=== PATIENT | male | born 1950 | race Caucasian/White ===

== ENCOUNTER 2018-05-20 21:16 | Emergency (ER) | payer OTHER ==
--- OUTSIDE RECORDS SUMMARY | 2018-05-20 21:19 | XMS REPORT | Clinical Summary ---
:1950 Author Organization [facility] Address [address] [place] [address] Care Team Providers Name Role Phone Stevie Dewey MD Primary Care Provider Allergies Active Allergy Reactions Severity Noted Date Comments Hydralazine Other (See Comments) 05/08/2017 Severe back pain and lower extremity paralysis. Lisinopril Other (See Comments) 05/06/2017 Severe weakness/ lethargy Current Medications Prescription Sig. Disp. Refills Start Date End Date Status losartan (COZAAR) Take 25 mg by Active 25 MG tablet mouth daily. NON FORMULARY OPT 1-thyroid 5 Discontinued mg 4x daily 8 NON FORMULARY MAINTENANCE AND CUSTODIAN SUPERVISOR forte II 2x Discontinued daily 8 CYANOCOBALAMIN, Take by mouth 2 Discontinued VITAMIN B-12, (two) times a 8 (VITAMELTS ENERGY day. ORAL) metoprolol Take 25 mg by Discontinued tartrate mouth 2 (two) 8 (LOPRESSOR) 25 mg times a day. tablet aspirin 81 mg Chew 1 tablet 30 tablet 0 05/11/2017 chewable tablet (81 mg total) 7 daily for 30 days. acetaminophen-code Take 1 tablet 30 tablet 0 05/11/2017 ine (TYLENOL WITH by mouth every 7 CODEINE #3) 300-30 4 (four) hours mg per tablet as needed for moderate pain for up to 10 days. docusate sodium Take 1 capsule 20 capsule 0 05/11/2017 (COLACE) 100 MG (100 mg total) 7 capsule by mouth 2 (two) times a day for 10 days. For use while on pain medication. IBUPROFEN (ADVIL Take by mouth. Discontinued ORAL) 8 cefadroxil Take 1 capsule 14 capsule 0 12/21/2017 (DURICEF) 500 MG (500 mg total) 8 capsule by mouth 2 (two) times a day for 7 days. acetaminophen-code Take 1 tablet 20 tablet 0 12/21/2017 ine (TYLENOL WITH by mouth every 8 CODEINE #3) 300-30 6 (six) hours mg per tablet as needed for moderate pain for up to 7 days. bacitracin 500 Apply topically 14 g 0 12/21/2017 unit/gram ointment 2 (two) times a 8 day for 3 days. 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 Encounters Date Type Specialty Care Team Description 12/21/2017 Hospital Encounter Plastic Surgery Aditya Cabrera MD 12/21/2017 Procedure Pass Plastic Surgery 12/21/2017 Surgery Plastic Surgery Aditya Cabrera FLAP REVISION OF MD Kaci right EAR 12/06/2017 Pre-Admit Testing Pre-Admission Aditya Cabrera Preop testing Appointment Testing MD Kaci (Primary Dx) 12/06/2017 Anesthesia Event Plastic Surgery Thea Corley, MACK 05/24/2017 Lab Lab Anand Alvarez Basal cell MD Tim carcinoma, ear, right (Primary Dx) 05/23/2017 Lab Lab Anand Alvarez MD after 05/19/2017 Family History Medical History Relation Name Comments Cancer Brother lung,kidney,brain Cancer Sister Relation Name Status Comments Brother (Age 50) Sister (Age 50) Social History Tobacco Use Types Packs/Day Years Used Date Current Every Day Smoker Cigarettes 1.5 40 Smokeless Tobacco: Never Used Alcohol Use Drinks/Week oz/Week Comments No Sex Assigned at Date Recorded Not on file Last Filed Vital Signs Vital Sign Reading Time Taken Blood Pressure 115/57 12/21/2017 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 Pulse 71 12/21/2017 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 Temperature 36.7 C (98 F) 12/21/2017 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 Respiratory Rate 17 12/21/2017 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 Oxygen Saturation 98% 12/21/2017 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 Inhaled Oxygen Concentration - - Weight 75.6 kg (166 lb 11.2 oz) 12/06/2017 11:40 AM UTILITY WORKER DRIVER Height 177.8 cm (5' 10") 12/21/2017 7:14 AM UTILITY WORKER DRIVER Body Mass Index 23.92 12/06/2017 11:40 AM UTILITY WORKER DRIVER Plan of Treatment Health Maintenance Due Date Last Done Comments COLON CANCER SCREENING 02/14/2002 SHINGRIX VACCINE (#1) 02/14/2002 ZOSTER VACCINE 2012 PNEUMOCOCCAL POLYSACCHARIDE VACCINE AGE 65 AND OVER 02/14/2017 PNEUMOCOCCAL-13 02/14/2017 INFLUENZA VACCINE 06/07/2018 Implants Implanted Type Area Folder Tier Device Expiration Model / Identifier Date Serial / Lot Algrft Crtlge Costal >6cm In - [id number] - [id number] Human Right: [employer]OSOURCE 04/15/2021 [id number] / Implanted: Qty: 1 on 05/05/2017 by Anand Alvarez MD Tissue Ear [id number] / Implants [id number] Drain Wound Hbls Round Radopaq Trocar Kaitlin White 0.18in 15fr - [id number] Surgical N/A: 2229 / Implanted: 05/05/2017 (Quantity not on file) Implants; N/A / Expanders; Extenders; Surgical Wires Otr Owner Operator Micrvasclr [place] 3mm Anastomosis - [id number] Surgical N/A: SYNOVIS [id number] / Implanted: Qty: 1 on 05/05/2017 by Anand Alvarez MD Implants; N/A SURGICAL / Expanders; INNOVATIONS Extenders; Surgical Wires Drain Wound Hbls Round Radopaq Trocar Kaitlin White 0.18in 15fr - [id number] Surgical N/A: 2229 / Implanted: 05/05/2017 (Quantity not on file) Implants; N/A / Expanders; Extenders; Surgical Wires Procedures Procedure Name Priority Date/Time Associated Diagnosis Comments OK AN ELECTIVE Routine 12/21/2017 9:22 AM ENDOTRACHEAL AIRWAY UTILITY WORKER DRIVER Procedure Note - Dian Irvin MD - 12/21/2017 9:22 AM UTILITY WORKER DRIVER Airway Date/Time: 12/21/2017 8:24 AM Performed by: DIAN IRVIN Authorized by: DIAN IRVIN Location: OR Urgency: Elective Difficult Airway: No Anesthesiologist: DIAN IRVIN Performed by: anesthesiologist Preoxygenated with 100% O2: Yes C-spine Precautions Maintained Throughout: Yes Mask Ventilation: Easy mask Final Airway Type: Endotracheal airway Final Endotracheal Airway: ETT Cuffed: Yes Technique Used: Direct laryngoscopy Insertion Site: Oral Blade Type: Bethea Laryngoscope Blade/Videolaryngoscope Blade Size: 2 ETT Size (mm): 8.0 Cuff at minimum occlusion pressure: Yes Measured from: Lips ETT to Lips (cm): 24 Placement Verified by: CO2 detection, direct visualization and equal breath sounds Laryngoscopic view: Grade I - full view of glottis Rapid Sequence Induction (RSI): No Modified RSI: No Number of Attempts at Approach: 1 CLOSURE, WOUND, USING ROTATION 12/21/2017 8:00 AM UTILITY WORKER DRIVER Acquired anomaly of ear FLAP Special Needs REQ 1130 START ECG PRE/POST OP Routine 12/06/2017 12:11 PM Preop testing Results for this UTILITY WORKER DRIVER procedure are in the results section. ESTIMATED GFR Routine 12/06/2017 11:59 AM Results for this UTILITY WORKER DRIVER procedure are in the results section. BASIC METABOLIC PANEL Routine 12/06/2017 11:59 AM Preop testing Results for this UTILITY WORKER DRIVER procedure are in the results section. CBC HEMOGRAM Routine 12/06/2017 11:59 AM Preop testing Results for this UTILITY WORKER DRIVER procedure are in the results section. SURGICAL PATHOLOGY Routine 05/23/2017 9:55 AM Results for this REQUEST CDT procedure are in the results section. after 05/19/2017 Results ECG Pre/Post Op (12/06/2017 12:11 PM) Ventricular rate 53 [facility] Atrial rate 53 [facility] OK interval 150 [facility] QRSD interval 82 [facility] QT interval 410 [facility] QTC interval 384 [facility] P axis 1 48 [facility] QRS axis 1 35 [facility] T wave axis 44 [facility] EKG impression Sinus bradycardia-Otherwise normal ECG-In [facility] automated comparison with ECG of 08-APR-2017 10:40,-No significant change was found- Performing Organization Address City/State/Zipcode Phone Number [facility] [address] [place] [address] Estimated GFR (12/06/2017 11:59 AM) GFR Non Af Amer >90 mL/min/1.73 m2 [facility] PATHOLOGY AND GENOMIC MEDICINE GFR Af Amer >90 mL/min/1.73 m2 [facility] OF Comment: PATHOLOGY AND GENOMIC Chronic kidney disease: <60 mL/min/1.73m2 MEDICINE Kidney failure: <15 mL/min/1.73m2 The estimated GFR is calculated from the IDMS-traceable Modification of Diet in Renal Disease Equation. The accuracy of the calculation is poor when the creatinine is normal. Calculated values >90 mL/min/1.73m2 are not reported. This equation has not been validated in children (<18 years), women, the elderly (>70 years), or ethnic groups other than Caucasians and Americans. Specimen Plasma specimen Performing Organization Address City/State/Zipcode Phone Number [facility] OF PATHOLOGY AND [address] [place] [phone] [employer] CBC hemogram (12/06/2017 11:59 AM) WBC 8.45 4.50 - 11.00 k/uL [facility]OLOGY [facility]IC MEDIC[facility] RBC 5.39 4.40 - 6.00 m/uL [facility] HGB 16.3 14.0 - 18.0 g/dL [facility]IC[facility] HCT 50.7 41.0 - 51.0 % [facility]IC[facility] MCV 94.1 82.0 - 100.0 fL [facility]IC[facility] MCH 30.2 27.0 - 34.0 pg [facility]IC[facility] MCHC 32.1 31.0 - 37.0 g/dL [facility] GENOMIC [facility]ICINE RDW - SD 49.1 37.0 - 55.0 fL [facility]OLOG[facility] GENOMIC MEDICINE MPV 9.9 8.8 - 13.2 fL [facility]IC[facility] Platelet count 193 150 - 400 k/uL [facility]IC[facility] Nucleated RBC 0.00 /100 WBC [facility]OLOG[facility]OMIC [facility]IC[facility] Specimen Blood Performing Organization Address City/State/Zipcode Phone Number [facility] OF PATHOLOGY AND [address] [place] [address] [employer] Basic metabolic panel (12/06/2017 11:59 AM) Sodium 144 135 - 148 mEq/L [facility]IC[facility] Potassium 4.0 3.5 - 5.0 mEq/L [facility]IC[facility] Chloride 103 98 - 112 mEq/L [facility]OLOG[facility]IC MEDIC[facility] CO2 28 24 - 31 mEq/L [facility]ICINE Anion gap 13 7 - 15 mEq/L [facility] OF PATHOLOGY Comment: AND GENOMIC MEDICINE Starting from February , anion gap calculation no longer incorporates potassium. Please note the change. BUN 13 8 - 23 mg/dL [facility] PATHOLOGY [facility]OMIC MEDICINE Creatinine 0.8 0.7 - 1.2 mg/dL [facility] PATHOLOG[facility]IC MEDICINE Glucose 141 (H) 65 - 99 mg/dL [facility] PATHOLOGY AND GENOMIC MEDICINE Calcium 9.4 8.8 - 10.2 mg/dL [facility] OF PATHOLOGY AND GENOMIC MEDICINE Specimen Plasma specimen Performing Organization Address City[facility]State[facility] Phone Number [facility] OF PATHOLOGY AND [address] [place] [address] GENOMIC MEDICINE Surgical pathology request (05/23/2017 9:55 AM) [facility] PATHOLOGY AND GENOMIC MEDICINE Surgical pathology report See link below for PDF [facility] Lab Report PATHOLOGY AND GENOMIC MEDICINE Performing Organization Address City/[facility] Phone Number [facility] OF PATHOLOGY AND [address] [place] [address] GENOMIC MEDICINE after 05/19/2017 Insurance Payer Benefit Plan / Group Subscriber ID Type Phone Address MEDICARE MEDICARE PART A AND B xxxxxxxxxx Medicare [place], [place] COMMERCIAL MISC MISC COMMERCIAL xxxxxxxxxx Commercial [phone] [place], [place] [phone]
[2018-05-20] MEDS ORDERED: TETRACAINE HCL 0.5% 2ML OPTH ONE (22:29)
--- NOTE | 2018-05-20 22:48 | ER ---
Nurse's Notes [facility] Name: Dick Branch Age: 68 yrs Sex: Male : 1950 Arrival Date: 05/20/2018 Time: 21:18 Bed 16 Private MD: Stevie Dewey Diagnosis: Foreign body in cornea, left eye;Foreign body in cornea, right eye Presentation: 05/20 21:32 Presenting complaint: Patient states: He was underneath a JEEP and some trash fell down aj1 and now he feels like he has something in both eyes, but the left eye is burning more. Redness noted to left sclera. Transition of care: patient was not received from another setting of care. Onset of symptoms was May 20, 2018. Onset of symptoms was May 20, 2018 at 17:30. Risk Assessment: Do you want to hurt yourself or someone else? Patient reports no desire to harm self or others. Initial Sepsis Screen: Does the patient meet any 2 criteria? No. Patient's initial sepsis screen is negative. Does the patient have a suspected source of infection? No. Patient's initial sepsis screen is negative. Care prior to arrival: None. 21:32 Method Of Arrival: Ambulatory [facility] 21:32 Acuity: MILLIE 4 aj1 Triage Assessment: 21:36 General: Appears in no apparent distress. comfortable, Behavior is calm, cooperative, aj1 appropriate for age. Pain: Complains of pain in right eye and left eye Pain currently is 5 out of 10 on a pain scale. Quality of pain is described as irritating. EENT: Sclera/Cornea are reddened in outer aspect of conjuctiva of left eye and inner aspect of conjunctiva of left eye. Neuro: Level of Consciousness is awake, alert, obeys commands, Speech is normal. Cardiovascular: Patient's skin is warm and dry. Respiratory: Airway is patent Respiratory effort is even, unlabored, Respiratory pattern is regular, symmetrical. Historical: - Allergies: 21:36 No Known Allergies; aj1 - Home Meds: 21:36 losartan 25 mg oral tab 2 tabs once daily [Active]; Prilosec 20 mg Oral cpDR 1 cap once aj1 daily [Active]; - PMHx: 21:36 Hypertension; GERD; aj1 - PSHx: 21:36 ear surgery for basal cell carcinoma; aj1 - Immunization history:: Flu vaccine is not up to date. - Social history:: Smoking status: Patient uses tobacco products, smokes 1.5 packs per day. - Ebola Screening: : Patient denies travel to an Ebola-affected area in the 21 days before illness onset. - Family history:: not pertinent. - Hospitalizations: : No recent hospitalization is reported. Screenin:19 Abuse screen: Denies threats or abuse. Denies injuries from another. Nutritional bp screening: No deficits noted. Tuberculosis screening: No symptoms or risk factors identified. Fall Risk None identified. Assessment: 22:18 Reassessment: SEE TRIAGE NOTE. VISION GROSSLY INTACT, NO EXUDATE NOTED. bp 23:16 Reassessment: PT D/C HOME, DX WITH CORNEAL ABRASION. bp Vital Signs: 21:36 BP 136 / 77; Pulse 65; Resp 18; Temp 97.3; Pulse Ox 97% on R/A; Weight 75.3 kg (R); aj1 Height 5 ft. 10 in. (177.80 cm) (R); 23:15 BP 141 / 79; Pulse 71; Resp 16; Pulse Ox 98% ; bp 21:36 Body Mass Index 23.82 (75.30 kg, 177.80 cm) aj1 ED Course: 21:18 Patient arrived in ED. es 21:21 Stevie Dewey MD is Private Physician. es 21:34 Triage completed. aj1 21:36 Arm band placed on Patient placed in waiting room, Patient notified of wait time. aj1 22:17 Eduardo Farah, MICHELLE is Primary Nurse. bp 22:19 Patient has correct armband on for positive identification. Bed in low position. Call bp light in reach. Side rails up X2. Adult w/ patient. 22:21 Jose Paredes MD is Attending Physician. rn 22:46 Caleb [place] MD is Referral Physician. rn 23:17 No provider procedures requiring assistance completed. Patient did not have IV access bp during this emergency room visit. Administered Medications: No medications were administered Outcome: 22:47 Discharge ordered by MD. rn 23:17 Discharged to home ambulatory, with family. bp 23:17 Condition: stable 23:17 Discharge instructions given to patient, Instructed on discharge instructions, follow up and referral plans. medication usage, Demonstrated understanding of instructions, follow-up care, medications, Prescriptions given X 1. 23:18 Patient left the ED. bp Signatures: Yulia Romero RN RN aj1 Isabella Salazar Roman, MD MD rn Eduardo Farah RN RN bp
--- NOTE | 2018-05-20 22:48 | EDPHYS ---
Physician Documentation [facility] Name: Dick Branch Age: 68 yrs Sex: Male : 1950 Arrival Date: 05/20/2018 Time: 21:18 Bed 16 Private MD: Stevie Dewey ED Physician Jose Paredes HPI: 05/20 22:42 This 68 yrs old Male presents to ER via Ambulatory with complaints of Eye rn Problem. 22:42 The patient is experiencing foreign body sensation. Onset: The symptoms/episode rn began/occurred just prior to arrival. Aggravated by blinking. Patient does not utilize any form of vision correction. Severity of symptoms: At their worst the symptoms were moderate in the emergency department the symptoms are unchanged. The patient has not experienced similar symptoms in the past. 22:43 Working underneath vehicle, feels like got some dust in eye. Both eyes, right > left.. rn Historical: - Allergies: 21:36 No Known Allergies; aj1 - Home Meds: 21:36 losartan 25 mg oral tab 2 tabs once daily [Active]; Prilosec 20 mg Oral cpDR 1 cap once aj1 daily [Active]; - PMHx: 21:36 Hypertension; GERD; aj1 - PSHx: 21:36 ear surgery for basal cell carcinoma; aj1 - Immunization history:: Flu vaccine is not up to date. - Social history:: Smoking status: Patient uses tobacco products, smokes 1.5 packs per day. - Ebola Screening: : Patient denies travel to an Ebola-affected area in the 21 days before illness onset. - Family history:: not pertinent. - Hospitalizations: : No recent hospitalization is reported. ROS: 22:43 Constitutional: Negative for fever, chills, and weight loss, Eyes: + foreign body rn sensation bilateral eyes. Exam: 22:43 Visual Acuity: I have reviewed the nursing documentation. Visual acuity is within rn normal limits. 22:43 Constitutional: This is a well developed, well nourished patient who is awake, alert, and in no acute distress. Head/Face: Normocephalic, atraumatic. Eyes: Right eye with evidence of previous cataract surgery, pupils reactive, left cornea with black foreign body, + abrasion/ulceration underneath after removal, right eye with foreign body identified at superior margin, removed easily with soft tipped currette after tetracaine. Vital Signs: 21:36 BP 136 / 77; Pulse 65; Resp 18; Temp 97.3; Pulse Ox 97% on R/A; Weight 75.3 kg (R); aj1 Height 5 ft. 10 in. (177.80 cm) (R); 23:15 BP 141 / 79; Pulse 71; Resp 16; Pulse Ox 98% ; bp 21:36 Body Mass Index 23.82 (75.30 kg, 177.80 cm) aj1 Procedures: 22:43 Foreign Body Removal: dust, from the right left eye, conjunctiva by using a rn cotton-tipped swab, The patient tolerated the removal well, Used tetracaine and then irrigated with multiple syringes.. MDM: 22:21 Patient medically screened. rn 22:43 Differential diagnosis: Corneal abrasion of Corneal ulcer of Foreign body in. Data rn reviewed: vital signs, nurses notes, and as a result, I will discharge patient. Counseling: I had a detailed discussion with the patient and/or guardian regarding: the historical points, exam findings, and any diagnostic results supporting the discharge/admit diagnosis, the need for outpatient follow up, to return to the emergency department if symptoms worsen or persist or if there are any questions or concerns that arise at home. Response to treatment: the patient's symptoms have markedly improved after treatment, and as a result, I will discharge patient. Special discussion: I discussed with the patient/guardian in detail that at this point there is no indication for admission to the hospital. It is understood, however, that if the symptoms persist or worsen the patient needs to return immediately for re-evaluation. Based on the history and exam findings, there is no indication for further emergent testing or inpatient evaluation. I discussed with the patient/guardian the need to see the opthamologist for further evaluation of the symptoms. Administered Medications: No medications were administered Disposition: 05/20/18 22:47 Discharged to Home. Impression: Foreign body in cornea, left eye, Foreign body in cornea, right eye. - Condition is Stable. - Discharge Instructions: Corneal Abrasion, Eye Foreign Body. - Prescriptions for Vigamox 0.5 % Ophthalmic Drops - instill 1 drop by OPHTHALMIC route every 8 hours for 7 days; 5 milliliter. - Medication Reconciliation Form, Thank You Letter, Antibiotic Education, Prescription Opioid Use form. - Follow up: Caleb [place] MD; When: 2 - 3 days; Reason: Recheck today's complaints, Re-evaluation by your physician. - Problem is new. - Symptoms have improved. Signatures: Yulia Romero, RN RN aj1 Jose Paredes MD MD rn Peltier, Brian, RN RN bp Corrections: (The following items were deleted from the chart) 22:45 22:43 Foreign Body Removal: dust, from the right left eye, conjunctiva rn rn 23:18 22:47 05/20/2018 22:47 Discharged to Home. Impression: Foreign body in cornea, left bp eye; Foreign body in cornea, right eye. Condition is Stable. Forms are Medication Reconciliation Form, Thank You Letter, Antibiotic Education, Prescription Opioid Use. Follow up: Caleb [place]; When: 2 - 3 days; Reason: Recheck today's complaints, Re-evaluation by your physician. Problem is new. Symptoms have improved. rn
== END 2018-05-20 23:18 | disposition home or self-care (01) ==
LOC: ER 21:16
PROC: 08C9XZZ Extirpation of Matter from Left Cornea, External Approach (ICD-10-PCS; principal; 2018-05-20)
PROC: 08C8XZZ Extirpation of Matter from Right Cornea, External Approach (ICD-10-PCS; 2018-05-20)
DX: T15.02XA Foreign body in cornea, left eye, initial encounter (principal); T15.01XA Foreign body in cornea, right eye, initial encounter; Y93.89 Activity, other specified; Y92.9 Unspecified place or not applicable
CPT/HCPCS: 99282

== ENCOUNTER 2019-12-26 17:49 | Emergency (ER) | payer OTHER ==
--- OUTSIDE RECORDS SUMMARY | 2019-12-26 17:55 | XMS REPORT ---
:1950 [facility] Address [address] [place] [address] Dr. Ambrosio [address] [place] [id number] Care Team Providers Name Role Phone Unavailable Unavailable Unavailable Problems This patient has no known problems. Allergies, Adverse Reactions, Alerts This patient has no known allergies or adverse reactions. Medications This patient has no known medications.
[2019-12-26] MEDS ORDERED: NA CHLORIDE 0.9% 1,000 ML ONE (19:12)
[2019-12-26] MEDS ORDERED: NA CHLORIDE 0.9% 500 ML ONE (19:12)
[2019-12-26] MEDS ORDERED: OCTREOTIDE ACETATE 100 MCG/ML ONE ×2 (19:13)
[2019-12-26 19:42] LABS: Absolute Lymphocytes (CBC) 2.6 K/uL (0.7-4.9); Basophils % 0.9 % (0-1.3); Hematocrit 45.6 % (39.6-49.0); Lymphocytes % 33.1 % (15.3-44.8); MPV 7.7 fL (7.6-11.3); RBC Red Blood Cell Count 5.01 M/uL (4.33-5.43)
[2019-12-26 19:45] LABS: Protime INR 1.02
[2019-12-26 19:58] LABS: ALT/SGPT 77 U/L (12-78); AST/SGOT 51 U/L (15-37); Albumin 3.2 g/dL (3.4-5.0); Alkaline Phosphatase 221 U/L (45-117); BUN Blood Urea Nitrogen 14 mg/dL (7-18); Bicarbonate 29 mmol/L (21-32); Bilirubin Direct 0.1 mg/dL (0-0.2); Bilirubin Total 0.4 mg/dL (0.2-1.0); Glucose Level 97 mg/dL (74-106); Lipase 299 U/L (73-393); Potassium 3.9 mmol/L (3.5-5.1); Protein, Total 7.1 g/dL (6.4-8.2); Sodium Level 143 mmol/L (136-145)
--- NOTE | 2019-12-26 20:50 | EDPHYS ---
Physician Documentation [facility] Name: Dick Branch Age: 69 yrs Sex: Male : 1950 Arrival Date: 12/26/2019 Time: 17:52 Bed 6 Private MD: ED Physician Joes Paredes HPI: 12/26 18:35 This 69 yrs old Male presents to ER via Unassigned with complaints of Rectal snw Bleeding. 18:35 The patient presents to the emergency department with bleeding from the rectum/anus, snw that is moderate. Onset: The symptoms/episode began/occurred gradually, and became worse today, and became persistent. Context: the patient s/p multiple variceal banding. Associate signs and symptoms: Pertinent positives: rectal bleeding. The patient has experienced similar episodes in the past. Dr. Kan. - Immunization history:: Adult Immunizations unknown. - Coronavirus screen:: The patient has NOT traveled to [place] in the past 14 days. - Social history:: Smoking status: unknown. - Ebola Screening: : No symptoms or risks identified at this time. ROS: 18:28 Constitutional: Negative for fever, chills, and weight loss, Eyes: Negative for injury, snw pain, redness, and discharge, ENT: Negative for injury, pain, and discharge, Neck: Negative for injury, pain, and swelling, Cardiovascular: Negative for chest pain, palpitations, and edema, Respiratory: Negative for shortness of breath, cough, wheezing, and pleuritic chest pain, Back: Negative for injury and pain, : Negative for injury, bleeding, discharge, and swelling, MS/Extremity: Negative for injury and deformity, Skin: Negative for injury, rash, and discoloration, Neuro: Negative for headache, weakness, numbness, tingling, and seizure, Psych: Negative for depression, anxiety, suicide ideation, homicidal ideation, and hallucinations. 18:28 Abdomen/GI: Positive for abdominal pain, abdominal cramps, rectal bleeding. Exam: 18:26 Constitutional: This is a well developed, well nourished patient who is awake, alert, snw and in no acute distress. + tobacco Head/Face: Normocephalic, atraumatic. Eyes: Pupils equal round and reactive to light, extra-ocular motions intact. Lids and lashes normal. Conjunctiva and sclera are non-icteric and not injected. Cornea within normal limits. Periorbital areas with no swelling, redness, or edema. ENT: Nares patent. No nasal discharge, no septal abnormalities noted. Tympanic membranes are normal and external auditory canals are clear. Oropharynx with no redness, swelling, or masses, exudates, or evidence of obstruction, uvula midline. Mucous membranes moist. Top teeth all decayed Neck: Trachea midline, no thyromegaly or masses palpated, and no cervical lymphadenopathy. Supple, full range of motion without nuchal rigidity, or vertebral point tenderness. No Meningismus. Chest/axilla: Normal chest wall appearance and motion. Nontender with no deformity. No lesions are appreciated. Cardiovascular: Regular rate and rhythm with a normal S1 and S2. No gallops, murmurs, or rubs. Normal PMI, no JVD. No pulse deficits. Respiratory: Lungs have equal breath sounds bilaterally, clear to auscultation and percussion. No rales, rhonchi or wheezes noted. No increased work of breathing, no retractions or nasal flaring. Back: No spinal tenderness. No costovertebral tenderness. Full range of motion. Skin: Warm, dry with normal turgor. Normal color with no rashes, no lesions, and no evidence of cellulitis. MS/ Extremity: Pulses equal, no cyanosis. Neurovascular intact. Full, normal range of motion. Neuro: Awake and alert, GCS 15, oriented to person, place, time, and situation. Cranial nerves II-XII grossly intact. Motor strength 5/5 in all extremities. Sensory grossly intact. Cerebellar exam normal. Normal gait. Psych: Awake, alert, with orientation to person, place and time. Behavior, mood, and affect are within normal limits. 18:26 Abdomen/GI: Inspection: abdomen appears normal, Bowel sounds: normal, Palpation: mild abdominal tenderness, in the umbilical area, to lower abdomen, Rectal exam: Prostate: normal, rectal tone normal, Stool: guaiac positive, the exam is chaperoned by the nurse. Vital Signs: 18:37 BP 164 / 66; Pulse 54; Resp 16; Temp 97.9; Pulse Ox 100% on R/A; iw 19:44 BP 153 / 66; Pulse 47; Resp 18; Pulse Ox 97% on R/A; Pain 0/10; aa1 20:32 BP 133 / 55 Supine; Pulse 50; Resp 18; Pulse Ox 98% ; ea 20:33 BP 134 / 58 Sitting; Pulse 50; Resp 18; Pulse Ox 98% ; ea 20:35 BP 120 / 60 Standing; Pulse 52; ea 21:26 BP 140 / 61; Pulse 55; Resp 18; Temp 98.1; Pulse Ox 97% on R/A; Pain 0/10; aa1 MDM: 18:36 Patient medically screened. snw 20:29 Data reviewed: vital signs, nurses notes. Data interpreted: Pulse oximetry: on room air snw is 97 %. Interpretation: normal. Counseling: I had a detailed discussion with the patient and/or guardian regarding: the historical points, exam findings, and any diagnostic results supporting the discharge/admit diagnosis, the presence of at least one elevated blood pressure reading (>120/80) during this emergency department visit, lab results, the need for outpatient follow up. Response to treatment: the patient's symptoms have mildly improved after treatment. Physician consultation: Odin Gu MD regarding consult, patient's condition, f/u outpatient with Dr. Ramos. 12/26 18:29 Order name: Basic Metabolic Panel; Complete Time: 20:04 snw 12/26 18:29 Order name: CBC with Diff; Complete Time: 20:04 snw 12/26 18:29 Order name: Creatinine for Radiology; Complete Time: 19:58 snw 12/26 18:29 Order name: Hepatic Function; Complete Time: 20:04 snw 12/26 18:29 Order name: Lipase; Complete Time: 20:04 snw 12/26 18:29 Order name: TS; Complete Time: 20:35 snw 12/26 18:29 Order name: IV Saline Lock; Complete Time: 19:27 snw 12/26 18:29 Order name: Labs collected and sent; Complete Time: 19:27 snw 12/26 18:35 Order name: PT-INR; Complete Time: 19:58 snw 12/26 18:35 Order name: Ptt, Activated; Complete Time: 19:58 snw 12/26 20:24 Order name: Orthostatics; Complete Time: 20:38 snw Administered Medications: 18:48 CANCELLED (pt states he has reaction to this med): ProTONIX 40 mg IVP once snw 19:26 Drug: NS 0.9% 1000 ml Route: IV; Rate: 75 ml/hr; Site: right antecubital; aa1 21:25 Follow up: IV Status: Completed infusion; IV Intake: 150ml aa1 19:26 Drug: Octreotide Infusion (50 mcg/hr) - (Octreotide 500 mcg, NS 0.9% 500 ml) Route: IV; aa1 Rate: 50 ml/hr; Site: right antecubital; 21:25 Follow up: IV Status: Completed infusion; IV Intake: 100ml aa1 Disposition: 12/26/19 20:49 Discharged to Home. Impression: Rectal bleeding post esophageal varices band placement. - Condition is Stable. - Discharge Instructions: Gastrointestinal Bleeding, Nonalcoholic Fatty Liver Disease Diet. - Medication Reconciliation Form, Thank You Letter, Antibiotic Education, Prescription Opioid Use form. - Follow up: Private Physician; When: 2 - 3 days; Reason: Recheck today's complaints, Continuance of care, Re-evaluation by your physician. Follow up: Emergency Department; When: As needed; Reason: Worsening of condition. Addendum: 12/29/2019 07:14 Co-signature as Attending Physician, Jose Paredes MD. r n Signatures: Dispatcher [employer] EDMS Tori Dc RN RN aa1 Divine Pollard, CANDY FORMING MACHINE OPERATOR-C CANDY FORMING MACHINE OPERATOR-Csnw Jose Paredes MD MD rn Antunez, Elena, RN RN ea Corrections: (The following items were deleted from the chart) 12/26 18:48 18:40 ProTONIX 40 mg IVP once ordered. snw snw 18:49 18:26 Constitutional: This is a well developed, well nourished patient who is awake, snw alert, and in no acute distress. Head/Face: Normocephalic, atraumatic. Eyes: Pupils equal round and reactive to light, extra-ocular motions intact. Lids and lashes normal. Conjunctiva and sclera are non-icteric and not injected. Cornea within normal limits. Periorbital areas with no swelling, redness, or edema. ENT: Nares patent. No nasal discharge, no septal abnormalities noted. Tympanic membranes are normal and external auditory canals are clear. Oropharynx with no redness, swelling, or masses, exudates, or evidence of obstruction, uvula midline. Mucous membranes moist. Neck: Trachea midline, no thyromegaly or masses palpated, and no cervical lymphadenopathy. Supple, full range of motion without nuchal rigidity, or vertebral point tenderness. No Meningismus. Chest/axilla: Normal chest wall appearance and motion. Nontender with no deformity. No lesions are appreciated. Cardiovascular: Regular rate and rhythm with a normal S1 and S2. No gallops, murmurs, or rubs. Normal PMI, no JVD. No pulse deficits. Respiratory: Lungs have equal breath sounds bilaterally, clear to auscultation and percussion. No rales, rhonchi or wheezes noted. No increased work of breathing, no retractions or nasal flaring. Back: No spinal tenderness. No costovertebral tenderness. Full range of motion. Skin: Warm, dry with normal turgor. Normal color with no rashes, no lesions, and no evidence of cellulitis. MS/ Extremity: Pulses equal, no cyanosis. Neurovascular intact. Full, normal range of motion. Neuro: Awake and alert, GCS 15, oriented to person, place, time, and situation. Cranial nerves II-XII grossly intact. Motor strength 5/5 in all extremities. Sensory grossly intact. Cerebellar exam normal. Normal gait. Psych: Awake, alert, with orientation to person, place and time. Behavior, mood, and affect are within normal limits. snw 18:49 18:26 Abdomen/GI: Inspection: abdomen appears normal, Bowel sounds: normal, Palpation: snw mild abdominal tenderness, in the umbilical area, Rectal exam: Prostate: normal, rectal tone normal, Stool: guaiac positive, the exam is chaperoned by the nurse, snw 21:27 20:49 12/26/2019 20:49 Discharged to Home. Impression: Rectal bleeding post esophageal aa1 varices band placement. Condition is Stable. Forms are Medication Reconciliation Form, Thank You Letter, Antibiotic Education, Prescription Opioid Use. Follow up: Private Physician; When: 2 - 3 days; Reason: Recheck today's complaints, Continuance of care, Re-evaluation by your physician. Follow up: Emergency Department; When: As needed; Reason: Worsening of condition. snw
--- NOTE | 2019-12-26 20:50 | ER ---
Nurse's Notes [facility] [place] Name: Dick Branch Age: 69 yrs Sex: Male : 1950 Arrival Date: 12/26/2019 Time: 17:52 Bed 6 Private MD: Diagnosis: Rectal bleeding post esophageal varices band placement Presentation: 12/26 18:35 Presenting complaint: Patient states: hx of cirrhosis, esophageal banding on Dec 17, iw 2019. pt has had blood in stool since Tuesday, 4 BM with bright red blood today. 18:35 Method Of Arrival: Wheelchair iw 18:38 Transition of care: patient was not received from another setting of care. Onset of iw symptoms was December 23, 2019. Risk Assessment: Do you want to hurt yourself or someone else? Patient reports no desire to harm self or others. Initial Sepsis Screen: Does the patient meet any 2 criteria? No. Patient's initial sepsis screen is negative. Does the patient have a suspected source of infection? No. Patient's initial sepsis screen is negative. Care prior to arrival: None. 18:38 Acuity: MILLIE 3 iw - Immunization history:: Adult Immunizations unknown. - Coronavirus screen:: The patient has NOT traveled to [place] in the past 14 days. - Social history:: Smoking status: unknown. - Ebola Screening: : No symptoms or risks identified at this time. Screenin:53 Abuse screen: Denies threats or abuse. Nutritional screening: No deficits noted. ea Tuberculosis screening: No symptoms or risk factors identified. Fall Risk IV access (20 points). Assessment: 20:13 General: Appears in no apparent distress. Behavior is calm, cooperative, appropriate ea for age. Pain: Denies pain. Neuro: Level of Consciousness is awake, alert, obeys commands, Oriented to person, place, time, situation. Cardiovascular: Patient's skin is warm and dry. Respiratory: Airway is patent Respiratory effort is even, unlabored, Respiratory pattern is regular, symmetrical. GI: Reports rectal bleeding. 21:26 Reassessment: Patient appears in no apparent distress at this time. Patient is alert, aa1 oriented x 3, equal unlabored respirations, skin warm/dry/pink. Discussed d/c \T\ f/u instructions with pt \T\ spouse; denies questions or concerns at this time. Ambulatory to lobby with steady gait. Patient states feeling better. Vital Signs: 18:37 BP 164 / 66; Pulse 54; Resp 16; Temp 97.9; Pulse Ox 100% on R/A; iw 19:44 BP 153 / 66; Pulse 47; Resp 18; Pulse Ox 97% on R/A; Pain 0/10; aa1 20:32 BP 133 / 55 Supine; Pulse 50; Resp 18; Pulse Ox 98% ; ea 20:33 BP 134 / 58 Sitting; Pulse 50; Resp 18; Pulse Ox 98% ; ea 20:35 BP 120 / 60 Standing; Pulse 52; ea 21:26 BP 140 / 61; Pulse 55; Resp 18; Temp 98.1; Pulse Ox 97% on R/A; Pain 0/10; aa1 ED Course: 17:52 Patient arrived in ED. mr 18:26 Divine [facility] F[facility]-C [facility] snw 18:26 Jose Paredes MD is Attending Physician. snw 18:40 Triage completed. iw 19:11 Inserted saline lock: 18 gauge in right antecubital area, using aseptic technique. cm6 20:04 Arm band placed on right wrist. Patient placed in an exam room, on a stretcher, on ea pulse oximetry. 20:10 Angelica Mary, RN is Primary Nurse. ea 20:14 Patient has correct armband on for positive identification. Placed in gown. Bed in low ea position. 21:26 No provider procedures requiring assistance completed. IV discontinued, intact, aa1 bleeding controlled, No redness/swelling at site. Pressure dressing applied. Administered Medications: 18:48 CANCELLED (pt states he has reaction to this med): ProTONIX 40 mg IVP once snw 19:26 Drug: NS 0.9% 1000 ml Route: IV; Rate: 75 ml/hr; Site: right antecubital; aa1 21:25 Follow up: IV Status: Completed infusion; IV Intake: 150ml aa1 19:26 Drug: Octreotide Infusion (50 mcg/hr) - (Octreotide 500 mcg, NS 0.9% 500 ml) Route: IV; aa1 Rate: 50 ml/hr; Site: right antecubital; 21:25 Follow up: IV Status: Completed infusion; IV Intake: 100ml aa1 Intake: 21:25 IV: 100ml; Total: 100ml. aa1 21:25 IV: 150ml; Total: 250ml. aa1 Outcome: 20:49 Discharge ordered by . snave 21: Discharged to home ambulatory, with significant other. aa1 21: Condition: good 21:26 Discharge instructions given to patient, significant other, Instructed on discharge instructions, follow up and referral plans. Demonstrated understanding of instructions, follow-up care. 21:27 Patient left the ED. aa1 Signatures: Tori Dc RN RN aa1 Divine Pollard, UPSTREAM BIOMANUFACTURING TECHNICIAN-C UPSTREAM BIOMANUFACTURING TECHNICIAN-Csnw Sarah Burns Negra Jones, RN Angelica Silva, RN Franca Sylvester ea 6
[2019-12-26 22:33] VITALS: BP 140/61; TEMP 98.1; O2SAT 97
== END 2019-12-26 21:27 | disposition home or self-care (01) ==
LOC: ER 17:49
DX: K62.5 Hemorrhage of anus and rectum (principal); Z98.890 Other specified postprocedural states
CPT/HCPCS: 96365; 85025; 80048; 36415; 86900; 86850; 85610; 86901; 80076; 85730; 83690; 99284; 96366; J2354 ×2; J7040; J7030

== ENCOUNTER 2022-10-15 13:42 | Emergency (ER) | payer OTHER ==
--- OUTSIDE RECORDS SUMMARY | 2022-10-15 13:48 | XMS REPORT | Continuity of Care Document ---
:1950 Author Organization [facility] t Address [address] [place] [address] Dr. [address]. [address] [place] [address] Care Team Providers Name Role Phone QUE MCCOY Primary Care Physician Unavailable RANDELL ROOT Attending Clinician Unavailable Brian CUSTOMER SERVICE CORRESPONDENCE CLERKMarlene K Attending Clinician Unavailable Randell Root MD Attending Clinician Emma PTRachel Attending Clinician Unavailable Doctor Unassigned, Roe Attending Clinician Unavailable Wendy Shaw PT Attending Clinician Unavailable Rahul Reyes MD Attending Clinician Analilia Al MD Attending Clinician Rina Hunt MA Attending Clinician Unavailable Abiodun Contreras MD Attending Clinician Jacqueline CASTILLO, Mansoor Khalil Attending Clinician [phone] Maykel Marie MD Attending Clinician MD MANSOOR ESPITIA Attending Clinician Unavailable Sagrario Ellis MD Attending Clinician David Lu MD Attending Clinician Asmita Overton Attending Clinician Unavailable MD SAGRARIO ELLIS Attending Clinician Unavailable Nathaly Garrison RN Attending Clinician Unavailable Provider, Unknown Attending Clinician Unavailable MD MAYKEL MARIE Attending Clinician Unavailable Jonn Rivero Attending Clinician Unavailable MANSOOR ESPITIA Admitting Clinician Unavailable MD MANSOOR ESPITIA Admitting Clinician Unavailable SAGRARIO ELLIS Admitting Clinician Unavailable MD SAGRARIO ELLIS Admitting Clinician Unavailable ANALILIA AL Admitting Clinician Unavailable MAYKEL MARIE Admitting Clinician Unavailable MD MAYKEL MARIE Admitting Clinician Unavailable KNOW, DOES_NOT Admitting Clinician Unavailable Payers Payer Name Policy Type Policy Number Effective Date Expiration Date S julianna MEDICARE PART A [id number] 2017 \T\ B 00:00:00 [employer] GENERIC [id number] 2018 00:00:00 Problems Condition Condition Condition Status Onset Resolution Last Treating Co mments Source Name Details Category Date Date Treatment Clinician Date Palpitatio Palpitatio Disease Active M ethodi n n 11-09 st 00:00: Hospita 00 l Pseudoclau Pseudoclau Disease Active M ethodi dication dication 11-09 st 00:00: Hospita 00 l Chronic Chronic Disease Active 2020-11 Methodi kidney kidney 12-29 disease, disease, 00:00: Hospit a stage II stage II 00 l (mild) (mild) Portal Portal Disease Active 2020-11 Methodi hypertensi hypertensi 12-29 on on 00:00: Hospita 00 l Decompensa Decompensa Disease Active 2020-11 M ethodi peyton peyton 12-29 hepatic hepatic 00:00: Hospita cirrhosis cirrhosis 00 l S/P TIPS S/P TIPS Disease Active 2020-11 Metho di (transjugu (transjugu 12-29 lar lar 00:00: Hospita intrahepat intrahepat 00 l ic ic portosyste portosyste nohelia shunt) nohelia shunt) Coronary Coronary Disease Active 2020-11 Metho di artery artery 0-19 st disease disease 00:00: Hospita involving involving 00 l la posta la posta coronary coronary artery artery without without angina angina pectoris pectoris Alcoholic Alcoholic Disease Active 2021-1 Met hodi cirrhosis cirrhosis 0-18 st of liver of liver 00:00: Hospit a with with 00 l ascites ascites 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 0-18 st diabetes diabetes 00:00: Hospit a mellitus mellitus 00 l with with neurologic neurologic complicati complicati on, on, without without long-term long-term current current use of use of insulin insulin 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 0-18 st athy athy 00:00: Hospita associated associated 00 l with type with type 2 diabetes 2 diabetes mellitus mellitus Parotid Parotid Disease Active [facility] 6 [facility] 00:00: Hospita 00 l No known No known Disease Unive rs active active ity of problems problems [facility] Allergies, Adverse Reactions, Alerts Allergy Allergy Status Severity Reaction(s) Onset Inactive Treating Comm ents Source Name Type Date Date Clinician Ciproflo Propensi Active Other (See Me thodi xacin ty to Comments) 11-09 adverse 00:00: Hospita reaction 00 l s to drug Doxycycl Propensi Active Other (See Me thodi ine ty to Comments) 11-09 adverse 00:00: Hospita reaction 00 l s to drug Losartan Propensi Active Other (See Me thodi ty to Comments) 11-09 adverse 00:00: Hospita reaction 00 l s to drug Metronid Propensi Active Other (See Me thodi azole ty to Comments) 11-09 adverse 00:00: Hospita reaction 00 l s to drug Omeprazo Propensi Active Other (See Me thodi le ty to Comments) 11-09 adverse 00:00: Hospita reaction 00 l s to drug Pantopra Propensi Active Other (See Me thodi zole ty to Comments) 11-09 adverse 00:00: Hospita reaction 00 l s to drug Spironol Propensi Active GI Dizzy, Method i actone ty to Intolerance 05-[address] adverse 00:00: stomach Hospita reaction 00 pain l s to drug Furosemi Propensi Active GI Dizzy, Method i de ty to Intolerance 7-[address] adverse 00:00: and Hospita reaction 00 stomach l s to cramps drug Hydralaz Propensi Active Other (See Severe Me thodi ine ty to Comments) [address] adverse 00:00: and lower Hospit a reaction 00 extremity l s to paralysis drug .Other reaction( s): Other (See Comments) Severe back pain and lower extremity paralysis . Lisinopr Propensi Active Other (See Severe Me thodi il ty to Comments) 6-30 weakness/ st adverse 00:00: lethargy, Hospit a reaction 00 stomach l s to pain drug Other reaction( s): Other (See Comments) Severe weakness/ lethargy NO KNOWN Drug Active [facility] ALLERGIE Class ity of S [facility] Family History Family Member Diagnosis Comments Start Date Stop Date Source Natural brother Cancer [facility] Natural sister Cancer [facility] Social History Social Habit Start Date Stop Date Quantity Comments Source History of tobacco Cigarette Smoker [facility] Alcohol intake 2022-01-13 2022-01-13 Ex-drinker [facility] 00:00:00 00:00:00 (finding) [facility] Cigarettes smoked 2021-09-02 2021-09-02 [facility] current (pack per 00:00:00 00:00:00 Hospita l day) - Reported Cigarette 2021-09-02 2021-09-02 [facility] pack-years 00:00:00 00:00:00 Hospital Alcohol Comment 2021-09-02 2021-09-[address] 00:00:00 00:00:00 Hospital Tobacco use and 2018-04-27 2018-04-27 Smokeless Universit y of exposure 00:00:00 00:00:00 tobacco non-user [facility] Sex Assigned At [birth year] [facility] 00:00:00 00:00:00 Hospital Smoking Status Start Date Stop Date Source Smokes tobacco daily 2021-09-02 00:00:00 [facility] Medications Ordered Filled Start Stop Current Ordering Indication Dosage Frequency Signature Comments Components Source Medication Medication Date Date Medication? Clinician (SIG) Name Name calcium Yes 1{tbl} [id number] Chew 1 Methodi carbonate 3-[id number] (TUMS) 200 13:13: 3D (three) Hosp ivis mg calcium 59 times a l (500 mg) day as chewable needed for tablet indigestio n or heartburn. zinc 2022-0 Yes 1{capsu QD Take 1 Methodi sulfate 3-09 le} capsule by st (ZINCATE) 13:13: mouth in Hosp ivis 50 mg zinc 59 the l (220 mg) morning. capsule polyethylen 2022-0 Yes 17g Q24H Take 17 g M ethodi e glycol 3-[address] (MIRALAX) 13:13: as needed Hos sandy 17 gram 59 in the l packet morning for constipati on. naproxen 2022-0 Yes 220mg Take 220 Meth nichole sodium 3-[address] (Aleve) 220 13:13: mouth as Ho spita mg capsule 59 needed. l calcium 2-0 Yes 1{tbl} [id number] Chew 1 Methodi carbonate 3-[id number] (TUMS) 200 13:13: 3D (three) Hosp ivis mg calcium 59 times a l (500 mg) day as chewable needed for tablet indigestio n or heartburn. zinc 2021-0 Yes 1{capsu QD Take 1 Methodi sulfate 3-09 le} capsule by st (ZINCATE) 13:13: mouth in Hosp ivis 50 mg zinc 59 the l (220 mg) morning. capsule polyethylen 2022-0 Yes 17g Q24H Take 17 g M ethodi e glycol 3-[address] (MIRALAX) 13:13: as needed Hos sandy 17 gram 59 in the l packet morning for constipati on. naproxen 2022-0 Yes 220mg Take 220 Meth nichole sodium 3-[address] (Aleve) 220 13:13: mouth as Ho spita mg capsule 59 needed. l potassium 2022-0 2022- No 10meq Q.5D Take 10 Met hodi chloride 2-02 02-[address] (K-DUR) 10 15:28: 00:00 mouth 2 Hos sandy MEQ CR 12 :00 (two) l tablet times a day. potassium 2022-0 2022- No 10meq Q.5D Take 10 Met hodi chloride 2-02 02-[address] (K-DUR) 10 15:28: 00:00 mouth 2 Hos sandy MEQ CR 12 :00 (two) l tablet times a day. potassium Yes 20meq Q.5D Take 2 Metho di chloride 2-[address] (K-DUR) 10 00:00: (20 mEq Hosp ivis MEQ CR 00 total) by l tablet mouth 2 (two) times a day. potassium Yes 20meq Q.5D Take 2 Metho di chloride 2-[address] (K-DUR) 10 00:00: (20 mEq Hosp ivis MEQ CR 00 total) by l tablet mouth 2 (two) times a day. BUMETanide 2021- No 1mg QD Take 1 mg M ethodi (BUMEX) 1 11-[address] MG tablet 13:33: 00:00 every Hospit a 42 :00 evening. l BUMETanide 2021- No 1mg QD Take 1 mg M ethodi (BUMEX) 11-[address] MG tablet 13:33: 00:00 every Hospit a 42 :00 evening. l eplerenone 2022- No 25mg QD Take 1 Meth nichole (INSPRA) 25 11-0904 tablet (25 s t MG tablet 00:00: 05:59 mg total) Ho spita 00 :00 by mouth l daily. eplerenone 2022- No 25mg QD Take 1 Meth nichole (INSPRA) 25 11-0904 tablet (25 s t MG tablet 00:00: 05:59 mg total) Ho spita 00 :00 by mouth l daily. potassium 2020-11- No Methodi chloride 2-03 02-02 st (KLOR-CON) 00:00: 00:00 Hospit a 10 MEQ CR 00 :00 l tablet potassium 2020-11- No Methodi chloride 2-03 02-02 st (KLOR-CON) 00:00: 00:00 Hospit a 10 MEQ CR 00 :00 l tablet naproxen 2020-11- No 200mg Q.5D Take 200 Met hodi sodium 2- 12-[address] (ALEVE 16:08: 00:00 mouth 2 Hospita ORAL) 09 :00 (two) l times a day as needed. isotretinoi 2020-11 No Metho di n (ACCUTANE 12-09 st ORAL) 10:29: 00:00 Hospita 08 :00 l Constulose 2020-11 Yes Methodi 10 gram/15 2-02 st mL solution 00:00: Hospit a 00 l Constulose 2020-11 Yes Methodi 10 gram/15 2-02 st mL solution 00:00: Hospit a 00 l lactulose 2020-11 No 20g Q.5D Take 30 mL M ethodi 20 gram/30 12-09 ([address] mL solution 00:00: 05:59 total) by Hospita 00 :00 mouth 2 l (two) times a day for 30 days. lactulose 2020-11 No 20g Q.5D Take 30 mL M ethodi 20 gram/30 12-09 ([address] mL solution 00:00: 05:59 total) by Hospita 00 :00 mouth 2 l (two) times a day for 30 days. potassium 2020-11 No 10meq QD Take 1 Meth nichole chloride 0-27 11-27 tablet (10 st (KLOR-CON) 00:00: 05:59 mEq total) Hospita 10 MEQ CR 00 :00 by mouth l tablet daily for 30 days. BUMETanide 2020-11 Yes 2mg QD Take 2 mg Me thodi (BUMEX) 1 0-[address] MG tablet 00:00: daily. Hospit a 00 l BUMETanide 2020-11 Yes 2mg QD Take 2 mg Me thodi (BUMEX) 1 0-[address] MG tablet 00:00: daily. Hospit a 00 l ondansetron Yes [id number] 8mg Take 1 Univers (ZOFRAN 1-20 tablet by ity of ODT) 8 mg 00:00: mouth [place] disintegrat 00 every 8 Medic al ing tablet (eight) Branch hours as needed for Nausea and Vomiting (N/V). pantoprazol Yes [id number] 40mg Take 1 Univers e 1-20 tablet by ity of (PROTONIX) 00:00: mouth [place] 40 mg EC 00 daily. Medical tablet Branch ondansetron Yes [id number] 8mg Take 1 Univers (ZOFRAN 1-20 tablet by ity of ODT) 8 mg 00:00: mouth [place] disintegrat 00 every 8 Medic al ing tablet (eight) Branch hours as needed for Nausea and Vomiting (N/V). pantoprazol 2019-0 Yes [id number] 40mg Take 1 Univers e 1-20 tablet by ity of (PROTONIX) 00:00: mouth [place] 40 mg EC 00 daily. Medical tablet Branch ondansetron 2019-0 Yes [id number] 8mg Take 1 Univers (ZOFRAN 1-20 tablet by ity of ODT) 8 mg 00:00: mouth [place] disintegrat 00 every 8 Medic al ing tablet (eight) Branch hours as needed for Nausea and Vomiting (N/V). pantoprazol 2019-0 Yes [id number] 40mg Take 1 Univers e 1-20 tablet by ity of (PROTONIX) 00:00: mouth [place] 40 mg EC 00 daily. Medical tablet Branch ondansetron 2019-0 Yes [id number] 8mg Take 1 Univers (ZOFRAN 1-20 tablet by ity of ODT) 8 mg 00:00: mouth [place] disintegrat 00 every 8 Medic al ing tablet (eight) Branch hours as needed for Nausea and Vomiting (N/V). pantoprazol 2019-0 Yes [id number] 40mg Take 1 Univers e 1-20 tablet by ity of (PROTONIX) 00:00: mouth [place] 40 mg EC 00 daily. Medical tablet Branch ondansetron 2019-0 Yes [id number] 8mg Take 1 Univers (ZOFRAN 1-20 tablet by ity of ODT) 8 mg 00:00: mouth [place] disintegrat 00 every 8 Medic al ing tablet (eight) Branch hours as needed for Nausea and Vomiting (N/V). pantoprazol 2019-0 Yes [id number] 40mg Take 1 Univers e 1-20 tablet by ity of (PROTONIX) 00:00: mouth [place] 40 mg EC 00 daily. Medical tablet Branch ondansetron 2019-0 Yes [id number] 8mg Take 1 Univers (ZOFRAN 1-20 tablet by ity of ODT) 8 mg 00:00: mouth [place] disintegrat 00 every 8 Medic al ing tablet (eight) Branch hours as needed for Nausea and Vomiting (N/V). pantoprazol 2019-0 Yes [id number] 40mg Take 1 Univers e 1-20 tablet by ity of (PROTONIX) 00:00: mouth [place] 40 mg EC 00 daily. Medical tablet Branch ondansetron Yes [id number] 8mg Take 1 Univers (ZOFRAN 1-20 tablet by ity of ODT) 8 mg 00:00: mouth [place] disintegrat 00 every 8 Medic al ing tablet (eight) Branch hours as needed for Nausea and Vomiting (N/V). pantoprazol Yes [id number] 40mg Take 1 Univers e 1-20 tablet by ity of (PROTONIX) 00:00: mouth [place] 40 mg EC 00 daily. Medical tablet Branch losartan 25 Yes 25mg Take 25 mg Univers mg tablet 8-29 by mouth ity of 15:21: daily. [place] [address] Medical Branch Dexlansopra Yes 1{capsu Take 1 U nivers zole 8-29 le} capsule by ity of (DEXILANT) 15:21: mouth [place] 60 mg 49 daily. Medical capsule Branch losartan Yes 25mg Take 25 mg Univers mg tablet 8-29 by mouth ity of 15:21: daily. [address] Branch Dexlansopra Yes 1{capsu Take 1 U nivers zole 8-29 le} capsule by ity of (DEXILANT) 15:21: mouth [place] 60 mg 49 daily. Medical capsule Branch losartan Yes 25mg Take 25 mg Univers mg tablet 8-29 by mouth ity of 15:21: daily. [address] Dexlansopra Yes 1{capsu Take 1 U nivers zole 8-29 le} capsule by ity of (DEXILANT) 15:21: mouth [place] 60 mg 49 daily. Medical capsule Branch losartan Yes 25mg Take 25 mg Univers mg tablet 8-29 by mouth ity of 15:21: daily. [address] Dexlansopra Yes 1{capsu Take 1 U nivers zole 8-29 le} capsule by ity of (DEXILANT) 15:21: mouth [place] 60 mg 49 daily. Medical capsule Branch losartan 25 Yes 25mg Take 25 mg Univers mg tablet 8-29 by mouth ity of 15:21: daily. [address] Branch Dexlansopra Yes 1{capsu Take 1 U nivers zole 8-29 le} capsule by ity of (DEXILANT) 15:21: mouth [place] 60 mg 49 daily. Medical capsule Branch losartan Yes 25mg Take 25 mg Univers mg tablet 8-29 by mouth ity of 15:21: daily. [place] [address] Medical [place] Dexlansopra Yes 1{capsu Take 1 U nivers zole 8-29 le} capsule by ity of (DEXILANT) 15:21: mouth [place] 60 mg 49 daily. Medical capsule Branch losartan Yes 25mg Take 25 mg Univers mg tablet 8-29 by mouth ity of 15:21: daily. [address] Dexlansopra Yes 1{capsu Take 1 U nivers zole 8-29 le} capsule by ity of (DEXILANT) 15:21: mouth [place] 60 mg 49 daily. Medical capsule Branch Vital Signs Vital Name Observation Time Observation Value Comments Source Systolic blood 2022-01-13 19:12:00 112 mm[Hg] [facility] pressure Diastolic blood 2022-01-13 19:12:00 68 mm[Hg] [facility] pressure Heart rate 2022-01-13 19:12:00 72 /min [facility] Body height 2022-01-13 19:12:00 177.8 cm [facility] Body weight 2022-01-13 19:12:00 74.39 kg [facility] BMI 2022-01-13 19:12:00 23.53 kg/m2 [facility] Body temperature 2021-11-09 20:09:00 36.89 Elsie [facility] Oxygen saturation in 2021-11-09 20:09:00 99 /min [facility] Arterial blood by Pulse oximetry Respiratory rate 2021-11-04 20:27:00 18 /min [facility] Procedures Procedure Date / Time Performing Clinician Source Performed COMPREHENSIVE METABOLIC 2022-01-08 17:39:00 Rahul Reyes [facility] PANEL BASIC METABOLIC PANEL 2021-11-19 20:29:00 Analilia Al [facility] ANKLE BRACHIAL INDEX 2021-11-19 15:40:00 Analilia Al [facility] US DUPLEX ARTERIAL LOWER 2021-11-19 14:58:00 Analilia Al [facility] EXTREMITY BILATERAL US ABDOMINAL LIMITED 2021-11-04 20:25:00 Abiodun Contreras [facility] POC GLUCOSE 2021-10-31 13:50:00 [facility] CBC WITH PLATELET AND 2021-10-31 11:23:00 Dinakar, [facility] DIFFERENTIAL [facility] PROTHROMBIN TIME WITH INR 2021-10-31 11:23:00 Dinakar, [facility] BASIC METABOLIC PANEL 2021-10-31 11:23:00 Dinakar, [facility] HEPATIC FUNCTION PANEL 2021-10-31 11:23:00 Dinakar, [facility] PHOSPHORUS LEVEL 2021-10-31 11:23:00 Dinakar, [facility] MAGNESIUM LEVEL 2021-10-31 11:23:00 Dinakar, [facility] C-REACTIVE PROTEIN 2021-10-31 11:23:00 [facility] ESTIMATED GFR 2021-10-31 11:23:00 Dinakar, [facility] POC GLUCOSE 2021-10-31 01:19:00 Chen Maykel [facility] ospital CELL COUNT AND 2021-10-30 22:41:00 Everett [facility] DIFFERENTIAL, BODY FLUID PROTEIN, MISC FLUID 2021-10-30 22:41:00 Everett [facility] ALBUMIN, MISC FLUID 2021-10-30 22:41:00 Everett [facility] POC GLUCOSE 2021-10-30 21:41:00 Maykel Marie [facility] ospital AEROBIC CULTURE 2021-10-30 21:39:[facility] 2021-10-30 21:39[facility]00 [facility] 2021-10-30 21:39:00 [facility] DUP[facility] VENOUS UPPER 2021-10-30 [facility] DUPLEX VENOUS LOWER 2021-10-30 20:20[facility] EXTREM[facility]AL US ABDOMINAL PARACENTESIS 2021-10-30 19:09:05 Everett [facility] IMAGING MRI ABDOMEN W WO CONTRAST 2021-10-30 16:31:00 Everett [facility] HC COMPLETE BLD COUNT 2021-10-30 10:15:00 Dinakar, [facility] W/AUTO DIFF [facility] PROTHROMBIN TIME WITH INR 2021-10-30 10:15:00 Dinakar, [facility] BASIC METABOLIC PANEL 2021-10-30 10:15:00 Dinflorinr, [facility] HEPATIC FUNCTION PANEL 2021-10-30 10:15:00 Dinflorinr, [facility] PHOSPHORUS LEVEL 2021-10-30 10:15:00 Mansoor Espitia ospital [facility] MAGNESIUM LEVEL 2021-10-30 10:15:00 Mansoor Espitia [facility] ESTIMATED GFR 2021-10-30 10:15:00 [facility]SE 2021-10-30 03:05:00 MarieMaykel [facility] ospital POC GLUCOSE 2021-10-29 23:50:00 MarieMaykel nuñez ospital POC GLUCOSE 2021-10-29 18:40:00 Maykel Marie ospital TTE COMPLETE, W CONTRAST, 2021-10-29 17:54:17 Jacqueline [facility] W DOPPLER ([id number]) [facility] POC GLUCOSE 2021-10-29 13:52:00 [facility] COMPLETE BLD COUNT 2021-10-29 10:06:00 Dinjen, [facility] W/AUTO DIFF [facility] PROTHROMBIN TIME WITH INR 2021-10-29 10:06:00 Dinakar [facility] BASIC METABOLIC PANEL 2021-10-29 10:06:00 Dinakar, [facility] HEPATIC FUNCTION PANEL 2021-10-29 10:06:00 Jacqueline, [facility] PHOSPHORUS LEVEL 2021-10-29 10:06:00 Jacqueline, [facility] MAGN[facility] L[facility] 2021-10-29 10:06:00 Jacqueline, [facility] HEMOGLOBIN A1C 2021-10-29 10:06:00 Jacqueline, [facility] ESTIMATED GFR 2021-10-29 10:06:00 Jacqueline, [facility] COVID-19 QUALITATIVE 2021-10-29 03:40:00 Jacqueline, [facility] RT-PCR [facility] US ABDOMINAL DOPPLER 2021-10-29 01:01:34 Jacqueline, [facility] US ABDOMEN COMPLETE 2021-10-29 01:00:57 Jacqueline, [facility] URINE CULTURE 2021-10-28 23:45:00 Dinjen, [facility] URINALYSIS SCREEN AND 2021-10-28 23:38:00 Dinjen, [facility] MICROSCOPY, WITH REFLEX [facility] TO CULTURE XR CHEST 1 VW PORTABLE 2021-10-28 23:19:00 Dinjen, [facility] BLOOD CULTURE, AEROBIC & 2021-10-28 21:48:00 Dinjen, [facility] ANAEROBIC [facility] COVID-19 ANTI-SPIKE IGG 2021-10-28 21:45:00 Dinakar, [facility] ANTIBODY TITER [facility] ALPHA FETOPROTEIN 2021-10-28 21:45:00 Dinakar, [facility] TOTAL IRON BINDING 2021-10-28 21:45:00 Jacqueline, [facility] CAPACITY [facility] PHOSPHORUS LEVEL 2021-10-28 21:45:00 Dinjen, [facility] COVID-19 SEROLOGY PATIENT 2021-10-28 21:45:00 Jacqueline, [facility] SURVEILLANCE [facility] HC COMPLETE BLD COUNT 2021-10-28 21:24:00 Dinakar, [facility] W/AUTO DIFF [facility] TYPE AND SCREEN 2021-10-28 21:24:00 Dinakar, [facility] sp[facility] Remi FERRITIN LEVEL 2021-10-28 21:23:00 Dinakar, Mansoorriya Yañez [facility] THYROID STIMULATING 2021-10-28 21:23:00 Dinakar, [facility] HORMONE [facility] HEPATIC FUNCTION PANEL 2021-10-28 21:23:00 Dinakar, [facility] PROTHROMBIN TIME WITH INR 2021-10-28 21:23:00 Dinakar, [facility] US ABDOMINAL LIMITED 2021-10-21 21:52:00 Diane [facility] AEROBIC CULTURE 2021-10-14 18:15:00 [facility] ANAEROBIC CULTURE 2021-10-14 18:15:00 Diane [facility] GRAM STAIN 2021-10-14 18:15:00 Diane [facility] PROTEIN, MISC FLUID 2021-10-14 18:15:00 Diane [facility] CELL COUNT AND 2021-10-14 18:15:00 [facility] DIFFERENTIAL, BODY FLUID US ABDOMINAL PARACENTESIS 2021-10-14 18:00:[facility] ABDOMINAL [facility] 2021-10-08 18:25:03 [facility] 2021-10-08 14:09:00 Sagrario Ellis aria HC COMPLETE BLD COUNT 2021-10-08 10:23:00 Sagrario Ellis [facility] W/AUTO DIFF PROTHROMBIN TIME WITH INR 2021-10-08 10:23:00 Sagrario Ellis [facility] COMPREHENSIVE METABOLIC 2021-10-08 10:23:00 Sagrario Ellis [facility] PANEL PHOSPHORUS LEVEL 2021-10-08 10:23:00 Sagrario Ellis ospital MAGNESIUM LEVEL 2021-10-08 10:23:00 Sagrario Ellis spital FIBRINOGEN 2021-10-08 10:23:00 [facility] ESTIMATED GFR 2021-10-08 10:23:00 Sagrario Ellis spital POC GLUCOSE 2021-10-08 00:34:00 Sagrario Ellis spital POC GLUCOSE 2021-10-07 19:38:00 Sagrario Ellis spital XR CHEST 1 VW PORTABLE 2021-10-07 18:35:00 [facility] POC GLUCOSE 2021-10-07 14:02:00 Sagrario Ellis spital HC COMPLETE BLD COUNT 2021-10-07 11:00:00 [place] [facility] W/AUTO DIFF PROTHROMBIN TIME WITH INR 2021-10-07 11:00:00 Sagrario Ellis [facility] COMPREHENSIVE METABOLIC 2021-10-07 11:00:00 Sagrario Ellis [facility] PANEL PHOSPHORUS LEVEL 2021-10-07 11:00:00 Sagrario Ellis ospital MAGNESIUM LEVEL 2021-10-07 11:00:00 Sagrario Ellis spital TROPONIN T 2021-10-07 11:00:00 Sagrario Ellis spital ESTIMATED GFR 2021-10-07 11:00:00 Sagrario Ellis spital POC GLUCOSE 2021-10-07 04:17:00 Sagrario Ellis spital TROPONIN T 2021-10-07 03:54:00 Sagrario Ellis spital POC GLUCOSE 2021-10-07 00:25:00 Sagrario Ellis spital TROPONIN T 2021-10-06 22:48:00 [facility] POC GLUCOSE 2021-10-06 19:39:00 Sagrario Ellis spital POC GLUCOSE 2021-10-06 17:20:00 Sagrario Ellis spital IR TIPS 2021-10-06 16:20:[facility] PARACENTESIS 2021-10-06 16:20:52 [facility] [place] AN ELECTIVE 2021-10-06 14:18:00 David Lu ospital ENDOTRACHEAL AIRWAY POC GLUCOSE 2021-10-06 13:43:00 Sagrario Ellis spital HC COMPLETE BLD COUNT 2021-10-06 11:25:[address] [facility] W/AUTO DIFF PROTHROMBIN TIME WITH INR 2021-10-06 11:25:00 [facility] 2021-10-06 11:25:00 [facility] PANEL PHOSPHORUS LEVEL 2021-10-06 11:25:00 Sagrario Ellis ospital MAGNESIUM LEVEL 2021-10-06 11:25:00 Sagrario Ellis spital HEMOGLOBIN A1C 2021-10-06 11:25:00 Sagrario Ellis spital THYROID STIMULATING 2021-10-06 11:25:00 [facility] HORMONE T4 2021-10-06 11:25:00 Sagrario Ellis spital VITAMIN D 25 HYDROXY 2021-10-06 11:25:00 [facility] GFR 2021-10-06 11:25:00 Sagrario Ellis spital POC GLUCOSE 2021-10-06 11:21:00 Sagrario Ellis spital URINE CULTURE 2021-10-06 06:10:00 Sagrario Ellis spital POC GLUCOSE 2021-10-06 03:46:00 Sagrario Ellis spital URINALYSIS SCREEN AND 2021-10-06 01:54:00 Sagrario Ellis [facility] MICROSCOPY, WITH REFLEX TO CULTURE POC GLUCOSE 2021-10-06 01:18:00 Sagrario Ellis spital COVID-19 ANTI-SPIKE IGG 2021-10-06 00:30:00 Rhonda [facility] ANTIBODY TITER BLOOD CULTURE, AEROBIC & 2021-10-06 00:30:00 Sagrario Ellis [facility] ANAEROBIC COVID-19 SEROLOGY PATIENT 2021-10-06 00:30:00 Sagrario Ellis [facility] SURVEILLANCE HC COMPLETE BLD COUNT 2021-10-06 00:30:00 Nuris Quinonez [facility] W/AUTO DIFF BASIC METABOLIC PANEL 2021-10-06 00:30:00 Nuris Quinonez [facility] HEPATIC FUNCTION PANEL 2021-10-06 00:30:00 Nuris Quinonez [facility] ESTIMATED GFR 2021-10-06 00:30:00 [facility] COVID-19 QUALITATIVE 2021-10-06 00:15:00 Nuris Quinonez [facility] RT-PCR BLOOD CULTURE, AEROBIC & 2021-10-06 00:15:00 Sagrario Ellis [facility] ANAEROBIC PROTHROMBIN TIME WITH INR 2021-10-06 00:15:00 Nuris Quinonez [facility] PREPARE RBC 2021-10-06 00:15:00 Frieda Davis [facility] ANAEROBIC CULTURE 2021-09-30 22:00:00 [facility] AEROBIC CULTURE 2021-09-30 22:00:00 [facility] GRAM STAIN 2021-09-30 22:00:00 [facility] PROTEIN, MISC FLUID 2021-09-30 22:00:00 [facility] CELL COUNT AND 2021-09-30 22:00:00 [facility] DIFFERENTIAL, BODY FLUID US ABDOMINAL PARACENTESIS 2021-09-30 21:45:18 [facility] IMAGING US ABDOMINAL PARACENTESIS 2021-09-23 18:03:15 [facility] IMAGING AEROBIC CULTURE 2021-09-23 17:30:00 [facility] ANAEROBIC CULTURE 2021-09-23 17:30:00 [facility] GRAM STAIN 2021-09-23 17:30:00 [facility] PROTEIN, MISC FLUID 2021-09-23 17:30:00 [facility] CELL COUNT AND 2021-09-23 17:30:00 [facility] DIFFERENTIAL, BODY FLUID US ABDOMINAL PARACENTESIS 2021-09-16 15:00:00 [facility] 2021-09-16 14:25:00 [facility] ANAEROBIC CULTURE 2021-09-16 14:25:00 [facility] GRAM STAIN 2021-09-16 14:25:00 [facility] PROTEIN, MISC FLUID 2021-09-16 [facility] 2021-09-16 14:25:00 [facility] DIFFERENTIAL, BODY FLUID ANAEROBIC CULTURE 2021-09-09 13:55:00 [facility] US ABDOMINAL PARACENTESIS 2021-09-09 13:25:15 [facility] C[facility] 2021-09-09 12:55:00 [facility] GRAM STAIN 2021-09-09 12:55:00 [facility] PROTEIN, MISC FLUID 2021-09-09 12:55:00 [facility] CELL COUNT AND 2021-09-09 12:55:00 [facility] DIFFERENTIAL, BODY FLUID BODY FLUID CONSULT 2021-09-09 12:55:00 [facility] BASIC [facility]OLIC PANEL 2021-09-05 14:58:00 [facility] POC GLUCOSE 2021-09-02 19:36:00 [facility] CV RIGHT HEART CATH 2021-09-02 19:05:27 [facility] SELECTIVE CORONARY ESTIMATED GFR 2021-09-02 16:36:00 [facility] POC PANEL 2021-09-02 16:36:00 [facility] BASIC METABOLIC PANEL 2021-09-02 16:34:00 [facility] HC COMPLETE BLD COUNT 2021-09-02 16:34:00 [facility] W/AUTO DIFF ESTIMATED GFR 2021-09-02 16:34:00 [facility] POC GLUCOSE 2021-09-02 15:33:00 [facility] ECG PRE/POST OP 2021-09-02 15:26:08 Analilia Al [facility] US ABDOMINAL PARACENTESIS 2021-09-02 14:07:00 Diane [facility] IMAGING AEROBIC CULTURE 2021-09-02 13:10:00 Diane, [facility] ANAEROBIC CULTURE 2021-09-02 13:10:00 Diane [facility] GRAM STAIN 2021-09-02 13:10:00 Diane, [facility] PROTEIN, MISC FLUID 2021-09-02 13:10:00 Diane, [facility] CELL COUNT AND 2021-09-02 13:10:00 Diane, [facility] DIFFERENTIAL, BODY FLUID MRI ABDOMEN W WO CONTRAST 2021-08-28 23:18:40 [place], [facility] PROTEIN, MISC FLUID 2021-08-26 18:53:00 Diane [facility] US ABDOMINAL PARACENTESIS 2021-08-26 17:49:43 Diane [facility] IMAGING ANAEROBIC CULTURE 2021-08-26 17:30:00 [place], [facility] AEROBIC CULTURE 2021-08-26 17:30:00 Diane, [facility] GRAM STAIN 2021-08-26 17:30:00 Diane [facility] US ABDOMINAL PARACENTESIS 2021-08-19 17:00:00 Diane [facility] IMAGING AEROBIC CULTURE 2021-08-19 16:35:00 Galaleena [facility] ANAEROBIC CULTURE 2021-08-19 16:35:00 [place], [facility] GRAM STAIN 2021-08-19 16:35:00 Diane, [facility] PROTEIN, MISC FLUID 2021-08-19 16:35:00 Diane, [facility] CELL COUNT AND 2021-08-19 16:35:00 Diane, [facility] DIFFERENTIAL, BODY FLUID US ABDOMINAL PARACENTESIS 2021-08-12 15:55:54 Diane [facility] IMAGING ANAEROBIC CULTURE 2021-08-12 15:25:00 Gal[place]ena [facility] AEROBIC CULTURE 2021-08-12 15:25:00 Galati, [facility] GRAM STAIN 2021-08-12 15:25:00 Galati, [facility] PROTEIN, MISC FLUID 2021-08-12 15:25:00 Galati, [facility] CELL COUNT AND 2021-08-12 15:25:00 Galati, [facility] DIFFERENTIAL, BODY FLUID US ABDOMINAL PARACENTESIS 2021-08-05 15:55:00 Galati, [facility] IMAGING AEROBIC CULTURE 2021-08-05 15:15:00 Galati, [facility] ANAEROBIC CULTURE 2021-08-05 15:15:00 Gal[place], [facility] GRAM STAIN 2021-08-05 15:15:00 Galati, [facility] PROTEIN, MISC FLUID 2021-08-05 15:15:00 Galati, [facility] CELL COUNT AND 2021-08-05 15:15:00 Galati, [facility] DIFFERENTIAL, BODY FLUID US ABDOMINAL PARACENTESIS 2021-07-31 17:08:48 Galati, [facility] IMAGING AEROBIC CULTURE 2021-07-31 16:30:00 Galati, [facility] GRAM STAIN 2021-07-31 16:30:00 Galati, [facility] ANAEROBIC CULTURE 2021-07-31 16:30:00 Gal[place], [facility] PROTEIN, MISC FLUID 2021-07-31 16:30:00 Galati, [facility] CELL COUNT AND 2021-07-31 16:30:00 Galati, [facility] DIFFERENTIAL, BODY FLUID US ABDOMINAL PARACENTESIS 2021-07-22 15:53:56 Galati, [facility] IMAGING AEROBIC CULTURE 2021-07-22 15:15:00 Galati, [facility] ANAEROBIC CULTURE 2021-07-22 15:15:00 Gal[place], [facility] GRAM STAIN 2021-07-22 15:15:00 Galati, [facility] PROTEIN, MISC FLUID 2021-07-22 15:14[facility] 2021-07-22 15:14:[facility] DIFFERENTIAL, BODY FLUID Plan of Care Planned Activity Planned Date Details Comments Source Future Scheduled 2022-09-11 65+ PNEUMOCOCCAL [facility] Test 16:25:02 VACCINE (1 - PCV) [code = 65+ PNEUMOCOCCAL VACCINE (1 - PCV)] Future Scheduled 2022-09-11 DIABETES: RETINAL EYE [facility] Test 16:25:02 EXAM [code = DIABETES: RETINAL EYE EXAM] Future Scheduled 2022-09-11 DIABETIC FOOT EXAM [facility] Test 16:25:02 [code = DIABETIC FOOT EXAM] Future Scheduled 2022-09-11 Hepatitis C screening [facility] Test 16:25:02 (procedure) [code = 596149738] Future Scheduled 2022-09-11 SHINGLES VACCINES (1 Met [facility] Test 16:25:02 of 2) [code = SHINGLES VACCINES (1 of 2)] Future Scheduled 2022-09-11 COLONOSCOPY SCREENING [facility] Test 16:25:02 [code = COLONOSCOPY SCREENING] Future Scheduled 2022-09-11 Screening for [facility] Test 16:25:02 malignant neoplasm of lung (procedure) [code = 331642336] Future Scheduled 2022-09-11 HEPATITIS B VACCINES Met [facility] Test 16:25:02 (1 of 3 - Risk 3-dose series) [code = HEPATITIS B VACCINES (1 of 3 - Risk 3-dose series)] Future Scheduled 2022-09-11 COVID-19 VACCINE (3 - Me [facility] Test 16:25:02 Booster for Pfizer series) [code = COVID-19 VACCINE (3 - Booster for Pfizer series)] Future Scheduled 2022-09-11 INFLUENZA VACCINE Method [facility] Test 16:25:02 [code = INFLUENZA VACCINE] Future Scheduled 2022-07-21 65+ PNEUMOCOCCAL [facility] Test 15:08:52 VACCINE (1 - PCV) [code = 65+ PNEUMOCOCCAL VACCINE (1 - PCV)] Future Scheduled 2022-07-21 DIABETES: RETINAL EYE [facility] Test 15:08:52 EXAM [code = DIABETES: RETINAL EYE EXAM] Future Scheduled 2022-07-21 DIABETIC FOOT EXAM [facility] Test 15:08:52 [code = DIABETIC FOOT EXAM] Future Scheduled 2022-07-21 Hepatitis C screening [facility] Test 15:08:52 (procedure) [code = 488919088] Future Scheduled 2022-07-21 SHINGLES VACCINES (1 Met [facility] Test 15:08:52 of 2) [code = SHINGLES VACCINES (1 of 2)] Future Scheduled 2022-07-21 COLONOSCOPY SCREENING [facility] Test 15:08:52 [code = COLONOSCOPY SCREENING] Future Scheduled 2022-07-21 [facility] Test 15:08:52 malignant neoplasm of lung (procedure) [code = 523123795] Future Scheduled 2022-07-21 HEPATITIS B VACCINES Met [facility] Test 15:08:52 (1 of 3 - Risk 3-dose series) [code = HEPATITIS B VACCINES (1 of 3 - Risk 3-dose series)] Future Scheduled 2022-07-21 COVID-19 VACCINE (3 - [facility] Test 15:08:52 Booster for Pfizer series) [code = COVID-19 VACCINE (3 - Booster for Pfizer series)] Future Scheduled 2022-07-21 [facility]ACCINE [facility] 15:08:52 [code = INFLUENZA VACCINE] Encounters Start End Encounter Admission Attending Care Care Encounter Source Date/Time Date/Time Type Type Clinicians Facility Department ID 2022-07-06 2022-07-06 Outpatient R IVETT [facility] [id number] Univers 13:45:00 15:37:22 RANDELL warren [facility] 2022-07-06 2022-07-06 Ancillary Marlene Torres [facility] 1.2.840 .114 [id number] Univers 13:45:00 15:37:22 Visit Randell Root 350.1.13.10 ity of [facility] 4.2.7.2.686 Raegan CAREY [phone] [address] 2022-06-29 2022-06-29 Ancillary Marlene Torres [facility] 1.2.840 .114 [id number] Univers 13:45:00 14:36:17 Visit Randell Root 350.1.13.10 ity of [facility] [place] [phone] Mi dical NAL 179 [facility] 2022-06-22 2022-06-22 Ancillary Marlene Torres [place] [facility] 1.2.840 .114 [id number] Univers 13:45:00 14:30:00 Visit Randell Root 350.1.13.10 ity of [place] [id number] Mi dical NAL 179 [facility] 2022-06-15 2022-06-15 Ancillary Marlene Torres [place] [facility] 1.2.840 .114 [id number] Univers 13:45:00 14:30:00 Visit Randell Root JARONGAYE 350.1.13.10 ity of [place] [phone] Mi dical NAL 179 [facility] 2022-06-10 2022-06-10 Ancillary Marlene Torres [place] [facility] 1.2.840 .114 [id number] Univers 13:00:00 13:45:00 Visit Randell Root Giancarlo DUMONT 350.1.13.10 ity of [place] [phone] Mi dical NAL 179 [facility] 2022-06-08 2022-06-08 Outpatient R IVETT [facility] [id number] Univers 13:00:00 13:45:29 RANDELL ity of [facility] 2022-06-08 2022-06-08 Ancillary Marlene Torres [place] [facility] 1.2.840 .114 [id number] Univers 13:00:00 13:45:29 Visit Randell Root Giancarlo DUMONT 350.1.13.10 [place] [phone] Mi dical NAL 179 [facility] 2022-06-04 2022-06-04 Outpatient R IVETT [facility] [id number] Univers 09:30:00 11:06:51 RANDELL ity of [facility] 2022-06-04 2022-06-04 Ancillary Marlene Torres [place] [facility] 1.2.840 .114 [id number] Univers 09:30:00 11:06:51 Visit Root Randell DUMONT 350.1.13.10 ity of [place] [phone] Mi dical NAL 179 [facility] 2022-05-25 2022-05-25 Ancillary Rachel Carter [facility] 1.2.840. 114 [id number] Univers 07:15:00 09:29:18 Visit Ivett Randell DUMONT 350.1.13.10 it[place] [phone] Mi dical NAL 179 [facility] 2022-05-20 2022-05-20 Ancillary Marlene Torres [facility] 1.2.840 .114 [id number] [facility] 13:00:00 13:45:00 Visit Randell Root 350.1.13.10 ity of [place] [phone] Mi dical NAL 179 [facility] 2022-05-18 2022-05-18 Ancillary BrianAmarisMarlene K [facility] 1.2.840 .114 [id number] Univers 13:00:00 13:45:00 Visit Randell Root 350.1.13.10 [place] of [place] [id number] Mi dical NAL 179 [facility] 2022-05-18 2022-05-18 Orders Doctor FRIEDA 1.2.840.114 [id number] Univers 00:00:00 00:00:00 Only Unassigned, NARCISA 350.1.13.10 [facility] of [facility] 4.2.7.2.686 Luis Fernando as [id number] [address] 2022-05-12 2022-05-12 Ancillary Amaris Torreslata Jacinto [facility] 1.2.840 .114 [id number] Univers 10:15:00 11:25:27 Visit Randell Root 350.1.13.10 [place] [phone] Mi dical NAL 179 [facility] 2022-05-03 2022-05-03 Outpatient R IVETT [facility] [id number] Univers 13:00:00 15:07:13 RANDELL ity of [facility] 2022-05-03 2022-05-03 Ancillary Servando Wendy Bernal [facility] 1 .2.840.114 [id number] Univers 13:00:00 15:07:13 Visit Randell Root 350.1.13.10 [place] of [place] [phone] Mi dical NAL 179 [facility] 2022-05-03 2022-05-03 Orders Doctor FRIEDA 1.2.840.114 [id number] Univers 00:00:00 00:00:00 Only Unassigned, NARCISA 350.1.13.10 ity of [facility] 4.2.7.2.686 Luis Fernando as [phone] [address] 2022-04-20 2022-04-20 Orders Doctor FRIEDA 1.2.840.114 [id number] Univers 00:00:00 00:00:00 Only Unassigned, NARCISA 350.1.13.10 ity of [facility] 4.2.7.2.686 Luis Fernando as [phone] [address] 2022-01-13 2022-01-13 Office Amy 1.2.840.1 [id number] Methodi 13:45:00 14:14:31 Visit Rahul Sears 19369.1.1 655 s t 3.430.2.7 Hospit a .3.664497 l .8 2022-01-13 2022-01-13 Office Amy 1.2.840.6 [id number] Methodi 13:45:00 14:14:31 Visit Rahul Sears 17648.1.1 655 s t 3.430.2.7 Hospit a .3.796270 l .8 2022-01-13 2022-01-13 Travel 1.2.840.1 1.2.163.725 4172 [id number] Methodi 00:00:00 00:00:[address] 3.430.2.7 0.2.7.3.698 Ho spita .3.655418 084.8 l .8 2022-01-13 2022-01-13 Travel 1.2.840.1 1.2.758.413 9436 867569 Methodi 00:00:00 00:00:[address] 3.430.2.7 0.2.7.3.698 Ho spita .3.460941 084.8 l .8 2022-01-12 2022-01-12 Travel 1.2.840.1 1.2.308.787 2938 800601 Methodi 00:00:00 00:00:[address] 3.430.2.7 0.2.7.3.698 Ho spita .3.482783 084.8 l .8 2022-01-12 2022-01-12 Travel 1.2.840.1 1.2.459.981 6683 878888 Methodi 00:00:00 00:00:[address] 3.430.2.7 0.2.7.3.698 Ho spita .3.032632 084.8 l .8 2021-12-09 2021-12-09 Office Amy, 1.2.840.0 [id number] Methodi 14:45:00 15:31:41 Visit Rahul Sears 18170.1.1 537 s t 3.430.2.7 Hospit a .3.323710 l .8 2021-12-09 2021-12-09 Office Amy, 1.2.840.0 [id number] Methodi 14:45:00 15:31:41 Visit Rahul Sears 23027.1.1 537 s t 3.430.2.7 Hospit a .3.179059 l .8 2021-12-09 2021-12-09 Travel 1.2.840.1 1.2.875.505 6050 243016 Methodi 00:00:00 00:00:[address] 3.430.2.7 0.2.7.3.698 Ho spita .3.214631 084.8 l .8 2021-12-09 2021-12-09 Travel 1.2.840.1 1.2.396.529 6130 708936 Methodi 00:00:00 00:00:[address] 3.430.2.7 0.2.7.3.698 Ho spita .3.530360 084.8 l .8 2021-11-20 2021-11-20 [facility], 1.2.840.1 [id number] 2099 [id number] Methodi 00:00:00 00:00:00 Only Analilia 39999.1.[address] [place] 3.430.2.7 Hospit a .3.527558 l .8 2021-11-20 2021-11-20 [facility], 1.2.840.1 [id number] 2100 [id number] Methodi 00:00:00 00:00:00 Only Analilia 16056.1.[address] [place] 3.430.2.7 Hospit a .3.932840 l .8 2021-11-19 2021-11-19 [facility] Servando, 1.2.840.1 [id number] 21001 [id number] Methodi 07:55:31 23:59:00 Encounter Analilia 07650.1.[address] [place] 3.430.2.7 Hospit a .3.562381 l .8 2021-11-19 2021-11-19 [facility] Servando, 1.2.840.1 [id number] Methodi 07:55:31 23:59:00 Encounter Analilia 93925.1.[address] [place] 3.430.2.7 Hospit a .3.361172 l .8 2021-11-19 2021-11-19 [facility] Servando, 1.2.840.1 [id number] Methodi 07:26:20 07:54:00 Encounter Analilia 29964.1.[address] [place] 3.430.2.7 Hospit a .3.522280 l .8 2021-11-19 2021-11-19 [facility] Servando, 1.2.840.1 [id number] Methodi 07:26:20 07:54:00 Encounter Analilia 33617.1.[address] [place] 3.430.2.7 Hospit a .3.658230 l .8 2021-11-19 2021-11-19 Telephone Marilee, 1.2.840.1 [id number] Methodi 00:00:00 00:00:[address] 3.430.2.7 Hospit a .3.181886 l .8 2021-11-19 2021-11-19 Telephone Marilee, 1.2.840.8 [id number] 694 [id number] Methodi 00:00:00 00:00:[address] 3.430.2.7 Hospit a .3.837746 l .8 2021-11-18 2021-11-18 Travel 1.2.840.1 1.2.111.539 4415 739446 Methodi 00:00:00 00:00:[address] 3.430.2.7 0.2.7.3.698 Ho spita .3.464856 084.8 l .8 2021-11-18 2021-11-18 Travel 1.2.840.1 1.2.725.989 8445 511862 Methodi 00:00:00 00:00:[address] 3.430.2.7 0.2.7.3.698 Ho spita .3.498491 084.8 l .8 2021-11-16 2021-11-16 Telephone Servando, 1.2.840.1 [id number] Methodi 00:00:00 00:00:[address] [place] 3.430.2.7 Hospit a .3.855386 l .8 2021-11-16 2021-11-16 Telephone Servando, 1.2.840.1 [id number] Methodi 00:00:00 00:00:[address] [place] 3.430.2.7 Hospit a .3.781323 l .8 2021-11-09 2021-11-09 Office Servando, 1.2.840.1 [id number] 2099 [id number] Methodi 14:20:00 17:09:50 Visit Analilia 04947.1.[address] [place] 3.430.2.7 Hospit a .3.374391 l .8 2021-11-09 2021-11-09 Office Servando, 1.2.840.1 [id number] 2099 [id number] Methodi 14:20:00 17:09:50 Visit Analilia Mistry50.1.[address] [place] 3.430.2.7 Hospit a .3.629131 l .8 2021-11-09 2021-11-09 Travel 1.2.840.1 1.2.285.208 1573 [id number] Methodi 00:00:00 00:00:[address] 3.430.2.7 0.2.7.3.698 Ho spita .3.655172 084.8 l .8 2021-11-09 2021-11-09 Travel 1.2.840.1 1.2.284.843 7740 912757 Methodi 00:00:00 00:00:[address] 3.430.2.7 0.2.7.3.698 Ho spita .3.688629 084.8 l .8 2021-11-04 2021-11-04 [facility], 1.2.840.1 [id number] 92079 95513 Methodi 13:18:36 23:59:00 Encounter Abiodun Blair 42740.1.[address] 3.430.2.7 Hospit a .3.801784 l .8 2021-11-04 2021-11-04 Hospital [place], 1.2.840.1 [id number] 65628 61612 Methodi 13:18:36 23:59:00 Encounter Abiodun S. 77958.1.[address] 3.430.2.7 Hospit a .3.149552 l .8 2021-11-04 2021-11-04 Travel 1.2.840.1 1.2.501.384 0999 [id number] Methodi 00:00:00 00:00:[address] 3.430.2.7 0.2.7.3.698 Ho spita .3.592829 084.8 l .8 2021-11-04 2021-11-04 Travel 1.2.840.1 1.2.855.267 5217 360558 Methodi 00:00:00 00:00:[address] 3.430.2.7 0.2.7.3.698 Ho spita .3.051454 084.8 l .8 2021-11-02 2021-11-[address] [facility] 1.2.840.1 [id number] Methodi 00:00:00 00:00:00 Orders Abiodun S. 10432.1.[address] 3.430.2.7 Hospit a .3.594313 l .8 2021-11-02 2021-11-02 Travel 1.2.840.1 1.2.001.173 4748 607742 Methodi 00:00:00 00:00:[address] 3.430.2.7 0.2.7.3.698 Ho spita .3.555274 084.8 l .8 2021-11-02 2021-11-[address] [facility] [facility] 1.2.840.1 [id number] Methodi 00:00:00 00:00:00 Orders Abiodun S. 16750.1.[address] 3.430.2.7 Hospit a .3.127960 l .8 2021-11-02 2021-11-02 Travel 1.2.840.1 1.2.722.100 3619 653145 Methodi 00:00:00 00:00:[address] 3.430.2.7 0.2.7.3.698 Ho spita .3.495204 084.8 l .8 2021-10-28 2021-10-31 [facility] 1.2.840.1 [id number] Methodi 14:17:00 15:19:00 Encounter Maykel Marie 88409.1.[address] 3.430.2.7 Hospit a .3.311497 l .8 2021-10-28 2021-10-31 [facility] 1.2.840.1 [id number] Methodi 14:17:00 15:19:00 Encounter Maykel Marie 30249.1.[address] 3.430.2.7 Hospit a .3.158142 l .8 2021-10-28 2021-10-28 Travel 1.2.840.1 1.2.943.004 7352 886492 Methodi 00:00:00 00:00:[address] 3.430.2.7 0.2.7.3.698 Ho spita .3.702835 084.8 l .8 2021-10-28 2021-10-28 Travel 1.2.840.1 1.2.689.023 2434 457504 Methodi 00:00:00 00:00:[address] 3.430.2.7 0.2.7.3.698 Ho spita .3.938374 084.8 l .8 2021-10-21 2021-10-21 [facility] 1.2.840.1 [id number] 08157 Methodi 13:45:00 23:59:00 Encounter Abiodun Blair 05693.1.[address] 3.430.2.7 Hospit a .3.444258 l .8 2021-10-21 2021-10-21 [facility] 1.2.840.1 [id number] 36416 72314 Methodi 13:45:00 23:59:00 Encounter Abiodun Blair 87621.1.[address] 3.430.2.7 Hospit a .3.082328 l .8 2021-10-21 2021-10-21 Travel 1.2.840.1 1.2.929.867 0342 889278 Methodi 00:00:00 00:00:[address] 3.430.2.7 0.2.7.3.698 Ho spita .3.032493 084.8 l .8 2021-10-21 2021-10-21 Travel 1.2.840.1 1.2.994.077 0695 419701 Methodi 00:00:00 00:00:[address] 3.430.2.7 0.2.7.3.698 Ho spita .3.376644 084.8 l .8 2021-10-19 2021-10-19 Travel 1.2.840.1 1.2.853.515 2928 244711 Methodi 00:00:00 00:00:[address] 3.430.2.7 0.2.7.3.698 Ho spita .3.277449 084.8 l .8 2021-10-19 2021-10-19 Travel 1.2.840.1 1.2.473.500 8041 018541 Methodi 00:00:00 00:00:[address] 3.430.2.7 0.2.7.3.698 Ho spita .3.266326 084.8 l .8 2021-10-16 2021-10-16 Orders Galati, 1.2.840.1 [id number] 480287 7425 Methodi 00:00:00 00:00:00 Only Abiodun Blair 81400.1.[address] 3.430.2.7 Hospit a .3.181958 l .8 2021-10-16 2021-10-16 Orders Galati, 1.2.840.1 [id number] 143510 8518 Methodi 00:00:00 00:00:00 Only Abiodun Blair 93765.1.[address] 3.430.2.7 Hospit a .3.045422 l .8 2021-10-15 2021-10-[address] [facility]1 [id number] 937 [id number] Methodi 00:00:00 00:00:00 Orders Abiodun Blair 85042.1.[address] 3.430.2.7 Hospit a .3.675412 l .8 2021-10-15 2021-10-[address] [facility] 1.2.840.1 [id number] 672 [id number] Methodi 00:00:00 00:00:00 Orders Abiodun Blair 08115.1.[address] 3.430.2.7 Hospit a .3.116018 l .8 2021-10-14 2021-10-14 [facility], 1.2.840.1 [id number] 31754 43643 Methodi 10:26:53 23:59:00 Encounter Abiodun Blair 19937.1.[address] 3.430.2.7 Hospit a .3.208132 l .8 2021-10-14 2021-10-14 Travel 1.2.840.1 1.2.730.179 0403 062096 Methodi 00:00:00 00:00:[address] 3.430.2.7 0.2.7.3.698 Ho spita .3.563371 084.8 l .8 2021-10-09 2021-10-09 Travel 1.2.840.1 1.2.128.299 5627 716333 Methodi 00:00:00 00:00:[address] 3.430.2.7 0.2.7.3.698 Ho spita .3.636019 084.8 l .8 2021-10-09 2021-10-09 Transcribe [facility], 1.2.840.1 [id number] 853 [id number] Methodi 00:00:00 00:00:00 Orders Abiodun Blair 73684.1.[address] 3.430.2.7 Hospit a .3.484890 l .8 2021-10-05 2021-10-08 Hospital Marie Maykel 1.2.840.1 868691 027 [id number] Methodi 16:48:00 16:07:00 Encounter Sagrario Ellis 60469.1.[address] 3.430.2.7 Hospit a .3.596328 l .8 2021-10-06 2021-10-06 Anesthesia Aly, 1.2.840.1 [id number] 054 [id number] Methodi 08:06:00 10:27:00 Event David Franco 40862.1.[address] 3.430.2.7 Hospit a .3.673589 l .8 2021-10-06 2021-10-06 Orders Brooklynn, 1.2.840.1 [id number] 69982 50598 Methodi 00:00:00 00:00:00 Only Asmita 67902.1.[address] 3.430.2.7 Hospit a .3.414481 l .8 2021-10-05 2021-10-05 Travel 1.2.840.1 1.2.426.539 9104 324591 Methodi 00:00:00 00:00:[address] 3.430.2.7 0.2.7.3.698 Ho spita .3.480299 084.8 l .8 2021-09-30 2021-09-30 Hospital [facility], 1.2.840.1 [id number] 25779 00057 Methodi 14:05:00 23:59:00 Encounter Abiodun Blair 16129.1.[address] 3.430.2.7 Hospit a .3.092684 l .8 2021-09-30 2021-09-30 Travel 1.2.840.1 1.2.585.315 7283 296291 Methodi 00:00:00 00:00:[address] 3.430.2.7 0.2.7.3.698 Ho spita .3.838557 084.8 l .8 2021-09-28 2021-09-28 Travel 1.2.840.1 1.2.581.468 2190 734767 Methodi 00:00:00 00:00:[address] 3.430.2.7 0.2.7.3.698 Ho spita .3.688490 084.8 l .8 2021-09-25 2021-09-25 Orders Delos 1.2.840.1 [id number] 2475 Methodi 00:00:00 00:00:00 Only Adair, 19647.1.[address] [place] 3.430.2.7 Hospit a .3.613901 l .8 2021-09-24 2021-09-24 Transcribe [facility], 1.2.840.1 [id number] 365 [id number] Methodi 00:00:00 00:00:00 Orders Abiodun Hurd. 81739.1.[address] 3.430.2.7 Hospit a .3.074191 l .8 2021-09-23 2021-09-23 [facility], 1.2.840.1 [id number] 96274 64356 Methodi 10:10:55 23:59:00 Encounter Abiodun Blair 72359.1.[address] 3.430.2.7 Hospit a .3.915780 l .8 2021-09-23 2021-09-23 Travel 1.2.840.1 1.2.533.587 1188 227833 Methodi 00:00:00 00:00:[address] 3.430.2.7 0.2.7.3.698 Ho spita .3.055233 084.8 l .8 2021-09-18 2021-09-18 Orders Delos 1.2.840.1 [id number] 490882 1789 Methodi 00:00:00 00:00:00 Only Adair, 12627.1.[address] [place] 3.430.2.7 Hospit a .3.825310 l .8 2021-09-16 2021-09-16 [facility], 1.2.840.1 [id number] 95153 95507 Methodi 06:56:22 23:59:00 Encounter Abiodun Blair 72846.1.[address] 3.430.2.7 Hospit a .3.781389 l .8 2021-09-16 2021-09-16 Travel 1.2.840.1 1.2.780.890 2928 224934 Methodi 00:00:00 00:00:[address] 3.430.2.7 0.2.7.3.698 Ho spita .3.950485 084.8 l .8 2021-09-11 2021-09-11 Orders Delos 1.2.840.1 [id number] 027796 6847 Methodi 00:00:00 00:00:00 Only Adair 58332.1.[address] [place] 3.430.2.7 Hospit a .3.713801 l .8 2021-09-10 2021-09-10 Telephone Delos 1.2.840.1 [id number] 2099 663855 Methodi 00:00:00 00:00:[address] [place] 3.430.2.7 Hospit a .3.501410 l .8 2021-09-09 2021-09-09 [facility], 1.2.840.1 [id number] 12926 23332 Methodi 07:07:55 23:59:00 Encounter Abiodun Blair 92879.1.[address] 3.430.2.7 Hospit a .3.680582 l .8 2021-09-09 2021-09-09 Travel 1.2.840.1 1.2.692.401 8103 199174 Methodi 00:00:00 00:00:[address] 3.430.2.7 0.2.7.3.698 Ho spita .3.788664 084.8 l .8 2021-09-07 2021-09-07 Telephone Bunny 1.2.840.1 [id number] 2099 402363 Methodi 00:00:00 00:00:00 Adair, 58561.1.[address] [place] 3.430.2.7 Hospit a .3.003084 l .8 2021-09-02 2021-09-02 Hospital Servando, 1.2.840.1 [id number] 82280 Methodi 09:46:00 18:02:00 Encounter Analilia 14854.1.[address] [place] 3.430.2.7 Hospit a .3.262243 l .8 2021-09-02 2021-09-02 Surgery Servando, 1.2.840.1 [id number] 805984 9752 Methodi 13:00:00 14:20:[address] [place] 3.430.2.7 Hospit a .3.036139 l .8 2021-09-02 2021-09-02 [facility], 1.2.840.1 [id number] 42428 Methodi 06:42:35 09:45:00 Encounter Aboidun VickeyCarlton 30445.1.[address] 3.430.2.7 Hospit a .3.160505 l .8 2021-09-02 2021-09-02 [facility], 1.2.840.1 [id number] 2099 967432 Methodi 00:00:00 00:00:00 Only Analilia 90548.1.[address] [place] 3.430.2.7 Hospit a .3.484399 l .8 2021-09-02 2021-09-02 Travel 1.2.840.1 1.2.103.301 4685 513423 Methodi 00:00:00 00:00:[address] 3.430.2.7 0.2.7.3.698 Ho spita .3.772158 084.8 l .8 2021-09-01 2021-09-01 Documentat Provider, 1.2.840.1 [id number] 2 [id number] Methodi 00:00:00 00:00:00 ion Unknown 84499.1.[address] 3.430.2.7 Hospit a .3.294593 l .8 2021-08-28 2021-08-28 [facility] 1.2.840.1 [id number] 79892 28003 Methodi 15:24:04 23:59:00 Encounter Abiodun Blair 72917.1.[address] 3.430.2.7 Hospit a .3.408375 l .8 2021-08-28 2021-08-28 Travel 1.2.840.1 1.2.290.003 5395 509181 Methodi 00:00:00 00:00:[address] 3.430.2.7 0.2.7.3.698 Ho spita .3.030169 084.8 l .8 2021-08-28 2021-08-28 Orders Delos 1.2.840.1 [id number] 570320 0065 Methodi 00:00:00 00:00:00 Only Adair, 89315.1.[address] [place] 3.430.2.7 Hospit a .3.870336 l .8 2021-08-27 2021-08-27 Telephone Delos 1.2.840.1 [id number] 2099 282723 Methodi 00:00:00 00:00:00 Adair, 58154.1.[address] [place] 3.430.2.7 Hospit a .3.404450 l .8 2021-08-26 2021-08-26 [facility] 1.2.840.1 [id number] 26552 Methodi 10:41:01 23:59:00 Encounter Abiodun Blair 56086.1.[address] 3.430.2.7 Hospit a .3.072444 l .8 2021-08-26 2021-08-26 Travel 1.2.840.1 1.2.704.695 9224 476292 Methodi 00:00:00 00:00:[address] 3.430.2.7 0.2.7.3.698 Ho spita .3.330538 084.8 l .8 2021-08-25 2021-08-25 Orders Servando, 1.2.840.1 [id number] 2100 389137 Methodi 00:00:00 00:00:00 Only Analilia 00620.1.[address] [place] 3.430.2.7 Hospit a .3.457156 l .8 2021-08-25 2021-08-25 Orders Servando, 1.2.840.1 [id number] 2100 737207 Methodi 00:00:00 00:00:00 Only Analilia 57784.1.[address] [place] 3.430.2.7 Hospit a .3.220265 l .8 2021-08-24 2021-08-24 Office Servando, 1.2.840.1 [id number] 2099183 Methodi 14:40:00 15:52:27 Visit Analilia 27309.1.[address] [place] 3.430.2.7 Hospit a .3.951315 l .8 2021-08-24 2021-08-24 Transcribe Diane, 1.2.840.1 [id number] 941 2093925 Methodi 00:00:00 00:00:00 Orders Abiodun Blair 68121.1.[address] 3.430.2.7 Hospit a .3.566754 l .8 2021-08-24 2021-08-24 Travel 1.2.840.1 1.2.953.879 2782 184384 Methodi 00:00:00 00:00:[address] 3.430.2.7 0.2.7.3.698 Ho spita .3.800328 084.8 l .8 2021-08-21 2021-08-21 Orders Delos 1.2.840.1 [id number] 400107 6143 Methodi 00:00:00 00:00:00 Only Adair, 06854.1.[address] [place] 3.430.2.7 Hospit a .3.703240 l .8 2021-08-19 2021-08-19 [facility], 1.2.840.1 [id number] 63969 53146 Methodi 10:28:39 23:59:00 Encounter Abiodun Blair 59254.1.[address] 3.430.2.7 Hospit a .3.250571 l .8 2021-08-19 2021-08-19 Travel 1.2.840.1 1.2.715.555 6236 421973 Methodi 00:00:00 00:00:[address] 3.430.2.7 0.2.7.3.698 Ho spita .3.505436 084.8 l .8 2021-08-14 2021-08-14 Travel 1.2.840.1 1.2.966.996 5008 334994 Methodi 00:00:00 00:00:[address] 3.430.2.7 0.2.7.3.698 Ho spita .3.000791 084.8 l .8 2021-08-14 2021-08-14 Orders Delos 1.2.840.1 [id number] 061011 4164 Methodi 00:00:00 00:00:00 Only Adair, 46964.1.[address] [place] 3.430.2.7 Hospit a .3.568079 l .8 2021-08-12 2021-08-12 [facility], 1.2.840.1 [id number] 49171 69542 Methodi 09:26:43 23:59:00 Encounter Abiodun Hurd. 90143.1.[address] 3.430.2.7 Hospit a .3.021978 l .8 2021-08-12 2021-08-12 Travel 1.2.840.1 1.2.210.331 9505 811481 Methodi 00:00:00 00:00:[address] 3.430.2.7 0.2.7.3.698 Ho spita .3.904718 084.8 l .8 2021-08-12 2021-08-12 Telephone David 1.2.840.1 [id number] 2099 489350 Methodi 00:00:00 00:00:00 Adair, 23555.1.[address] [place] 3.430.2.7 Hospit a .3.848888 l .8 2021-08-05 2021-08-05 [facility], 1.2.840.1 [id number] 44990 Methodi 09:20:41 23:59:00 Encounter Abiodun Hurd. 58322.1.[address] 3.430.2.7 Hospit a .3.568065 l .8 2021-08-05 2021-08-05 Travel 1.2.840.1 1.2.936.125 3712 448171 Methodi 00:00:00 00:00:[address] 3.430.2.7 0.2.7.3.698 Ho spita .3.360269 084.8 l .8 2021-07-31 2021-07-31 [facility] 1.2.840.1 [id number] 57262 Methodi 10:35:39 23:59:00 Encounter Abiodun S. 73848.1.[address] 3.430.2.7 Hospit a .3.452742 l .8 2021-07-31 2021-07-31 Travel 1.2.840.1 1.2.202.405 5560 169910 Methodi 00:00:00 00:00:[address] 3.430.2.7 0.2.7.3.698 Ho spita .3.094065 084.8 l .8 2021-07-31 2021-07-31 Orders Delos 1.2.840.1 [id number] 262292 6959 Methodi 00:00:00 00:00:00 Only Adair, 21263.1.[address] [place] 3.430.2.7 Hospit a .3.592183 l .8 2021-07-27 2021-07-27 Travel 1.2.840.1 1.2.884.544 2921 573025 Methodi 00:00:00 00:00:[address] 3.430.2.7 0.2.7.3.698 Ho spita .3.181253 084.8 l .8 2021-07-24 2021-07-24 Orders Delos 1.2.840.1 [id number] 183875 4312 Methodi 00:00:00 00:00:00 Only Adair, 46729.1.[address] [place] 3.430.2.7 Hospit a .3.042086 l .8 2021-07-22 2021-07-22 [facility], 1.2.840.1 [id number] 86039 43298 Methodi 09:32:24 23:59:00 Encounter Abioudn Blair 04573.1.[address] 3.430.2.7 Hospit a .3.289151 l .8 2021-07-22 2021-07-22 Travel 1.2.840.1 1.2.790.950 8202 666383 Methodi 00:00:00 00:00:[address] 3.430.2.7 0.2.7.3.698 Ho spita .3.364415 084.8 l .8 2021-07-15 2021-07-15 Outpatient [facility] [id number] 017 [place] 00:00:00 00:00:00 ABIODUN Beauchamp [facility] 2021-07-08 2021-07-08 Outpatient [facility] [id number] 002 [place] 00:00:00 00:00:00 ABIODUN [address] 2021-07-01 2021-07-01 Outpatient GALATI, [facility] [id number] 001 [place] 00:00:00 00:00:00 ABIODUN [address] 2021-07-01 2021-07-01 Outpatient GALATI, [facility] [id number] 245 [place] 00:00:00 00:00:00 ABIODUN [address] 2021-06-24 2021-06-24 Outpatient GALATI, [facility] [id number] 480 [place] 00:00:00 00:00:00 ABIODUN [address] 2021-06-17 2021-06-17 Outpatient GALATI, [facility] [id number] 019 [place] 00:00:00 00:00:00 ABIODUN [address] 2021-06-10 2021-06-10 Outpatient GALATI, [facility] [id number] 763 [place] 00:00:00 00:00:00 ABIODUN [address] 2021-06-10 2021-06-10 Outpatient GALATI, [facility] [id number] 691 [place] 00:00:00 00:00:00 ABIODUN [address] 2021-06-03 2021-06-03 Outpatient GALATI, [facility] [id number] 096 [place] 00:00:00 00:00:00 ABIODUN [address] 2021-05-20 2021-05-20 Outpatient GALATI, [facility] [id number] 397 [place] 00:00:00 00:00:00 ABIODUN [address] 2021-05-06 2021-05-09 Inpatient MARIE, [facility] 012 [id number] 8283 [place] 00:00:00 00:00:00 MAYKEL [address] 2021-04-29 2021-04-29 Outpatient GALATI, [facility] [id number] 991 [place] 00:00:00 00:00:00 ABIODUN [address] 2021-04-22 2021-04-22 Outpatient GALATI, [facility] [id number] 351 [place] 00:00:00 00:00:00 ABIODUN [address] 2021-04-14 2021-04-14 Outpatient GALATI, [facility] [id number] 050 [place] 00:00:00 00:00:00 ABIODUN [address] 2021-04-09 2021-04-09 Outpatient GALATI, [facility] [id number] 459 [place] 00:00:00 00:00:00 ABIODUN [address] 2021-04-07 2021-04-07 Outpatient GALATI, [facility] [id number] 408 [place] 00:00:00 00:00:00 ABIODUN [address] 2021-03-27 2021-03-27 Outpatient GALATI, [facility] [id number] 722 [place] 00:00:00 00:00:00 ABIODUN [address] 2021-03-20 2021-03-20 Outpatient GALATI, [facility] [id number] 421 [place] 00:00:00 00:00:00 ABIODUN [address] 2021-03-10 2021-03-10 Outpatient GALATI, [facility] [id number] 289 [place] 00:00:00 00:00:00 ABIODUN [address] 2021-02-25 2021-02-25 Outpatient GALATI, [facility] [id number] 780 [place] 00:00:00 00:00:00 ABIODUN [address] 2021-02-12 2021-02-12 Outpatient GALATI, [facility] [id number] 908 [place] 00:00:00 00:00:00 ABIODUN [address] 2020-11-05 2020-11-05 Outpatient GALATI, [facility] [id number] 947 [place] 00:00:00 00:00:00 ABIODUN [address] 2020-01-23 2020-01-23 Outpatient Josefa, HCAWU SUGL [id number] [facility] 08:30:00 08:30:[address] [facility] Results Test Description Test Time Test Comments Results Result Comments Source Comprehensive metabolic panel 2022-01-09 08:14:00 Test Item Value Reference Range Interpretation Comme nts Glucose (test code = 132 mg/dL 65-99 H Fastin g reference 2345-7) interval For so meone without known d iabetes, a glucosevalue >1 25 mg/dL indicates that they may havediabetes an d this should be confi rmed with afollow-up test . BUN (test code = 3094-0) 19 mg/dL 7-25 Creatinine (test code = 0.94 mg/dL 0.7-1.25 For patients >49 years of 2160-0) age, the refere nce limitfor Creati nine is approximately 1 3% higher for peopleident ified as -Iliana n. EGFR Non-Afr. Kyrgyz See_Comment [Aut omated message] The (test code = 2775) system [facility] generated this result tra nsmitted reference range : > OR = 60 mL/min/1.73m 2. The reference range was not used to interpr et this result as normal/abnormal . EGFR See_Comment [Auto mated message] The (test code = 2774) system [facility] generated this result tra nsmitted reference range : > OR = 60 mL/min/1.73m 2. The reference range was not used to interpr et this result as normal/abnormal . BUN/creatinine ratio NOT APPLICABLE See_Comment [Aut omated message] The (test code = 3097-3) system which generated this result tra nsmitted reference range : 6 - 22 (calc). The ref erence range was not u sed to interpret this result as normal/abnormal . Sodium (test code = 139 mmol/L 240-270 4988-2) Potassium (test code = 3.7 mmol/L 3.5-5.3 2823-3) Chloride (test code = 110 mmol/L 98-110 2075-0) CO2 (test code = 8-9) 25 mmol/L 20-32 Calcium (test code = 8.2 mg/dL 8.6-10.3 L 26168-0) Protein (test code = 5.9 g/dL 6.1-8.1 L 2885-2) Albumin, S (test code = 2.5 g/dL 3.6-5.1 L 1751-7) Globulin, total (test See_Comment [Auto mated message] The code = 68311-9) system which generated this result tra nsmitted reference range : 1.9 - 3.7 g/dL (calc) . The reference range was not used to interpr et this result as normal/abnormal . Albumin/globulin ratio See_Comment L [Aut omated message] The (test code = 1759-0) system which generated this result tra nsmitted reference range : 1.0 - 2.5 (calc). The reference range was not u sed to interpret this result as normal/abnormal . Total bilirubin (test 1.1 mg/dL 0.2-1.2 code = 1975-2) Alkaline phosphatase 173 U/L 35-144 H (test code = 6768-6) AST (test code = 1920-8) 34 U/L 10-35 ALT (test code = 1742-6) 24 U/L 9-46 DENISE (test code = DENISE) FASTING:UNKNOWN FASTING: UNKNOWN RAC (test code = RAC) Performing Organization Information: Site ID: [facility] Name: [facility] Address: [address] [place] [id number] Director: Walter Haque Lab Interpretation (test Abnormal code = 33972-6) [facility] metabolic [id number] 08:14:00 Test Item Value Reference Interpretation Comments Range Glucose (test code 132 mg/dL 65-99 H Fasting reference = 2345-7) interval For so meone without known diabetes, a glucosevalue >1 25 mg/dL indicates that they may havediabetes an d this should be confirmed with afollow-up test . BUN (test code = 19 mg/dL 7-25 3094-0) Creatinine (test 0.94 mg/dL 0.70-1.25 For patient s >49 code = 2160-0) years of age, the reference limit for Creatinine is approximately 1 3% higher for peopleidentifie d as -Iliana n. EGFR Non-Afr. See_Comment [Automated me ssage] Kyrgyz (test code The syst em which = 8107) generated this result transmit [place] reference range : > OR = 60 mL/min/1.73m2. The reference range was not used to interpret this result as normal/abnormal . EGFR See_Comment [Automated mes bianca] Kyrgyz (test code The syst em which = 3979) generated this result transmit [place] reference range : > OR = 60 mL/min/1.73m2. The reference range was not used to interpret this result as normal/abnormal . BUN/creatinine NOT APPLICABLE See_Comment [Automated message] ratio (test code = The syste m which 3097-3) generated this result transmit [place] reference range : 6 - 22 (calc). The reference range was not used to interpret this result as normal/abnormal . Sodium (test code = 139 mmol/L 456-386 7563-2) Potassium (test 3.7 mmol/L 3.5-5.3 code = 2823-3) Chloride (test code 110 mmol/L 98-110 = 2075-0) CO2 (test code = 25 mmol/L 20-32 2027-9) Calcium (test code 8.2 mg/dL 8.6-10.3 L = 62225-8) Protein (test code 5.9 g/dL 6.1-8.1 L = 2885-2) Albumin, S (test 2.5 g/dL 3.6-5.1 L code = 1751-7) Globulin, total See_Comment [Automated message] (test code = The system [place] You[place] h 19827-5) generated this result transmit [place] reference range : 1.9 - 3.7 g/dL (addie c). The reference r mahi was not used to interpret this result as normal/abnormal . Albumin/globulin See_Comment L [Automated message] ratio (test code = The syste m which 1759-0) generated this result transmit [place] reference range : 1.0 - 2.5 (calc). T he reference range was not used to interpret this result as normal/abnormal . Total bilirubin 1.1 mg/dL 0.2-1.2 (test code = 1974-2) Alkaline 173 U/L 35-144 H phosphatase (test code = 6768-6) AST (test code = 34 U/L 10-35 1920-8) ALT (test code = 24 U/L 9-46 1742-6) DENISE (test code = FASTING:UNKNOWN DENISE) FASTING: UNKNOWN RAC (test code = Performing RAC) Organization Information: Site ID: RGA Name: [facility] Address: [address] [place] [address] Director: Walter Haque Lab Interpretation Abnormal (test code = 15836-9) [facility] metabolic [id number] 06:44:00 Test Item Value Reference Interpretation Comments Range Glucose (test code 142 mg/dL 65-139 H Non-fast ing = 2345-7) reference inter john BUN (test code = 17 mg/dL 7-25 3094-0) Creatinine (test 1.18 mg/dL 0.7-1.25 For patient s >49 code = 2160-0) years of age, the reference limit for Creatinine is approximately 1 3% higher for peopleidentifie d as -Iliana n. EGFR Non-Afr. See_Comment [Automated me ssage] Kyrgyz (test code The syst em which = 2775) generated this result transmit [place] reference range : > OR = 60 mL/min/1.73m2. The reference range was not used to interpret this result as normal/abnormal . EGFR See_Comment [Automated mes bianca] Kyrgyz (test code The syst em which = 2774) generated this result transmit [place] reference range : > OR = 60 mL/min/1.73m2. The reference range was not used to interpret this result as normal/abnormal . BUN/creatinine NOT APPLICABLE See_Comment [Automated message] ratio (test code = The syste m which 3097-3) generated this result transmit [place] reference range : 6 - 22 (calc). The reference range was not used to interpret this result as normal/abnormal . Sodium (test code = 141 mmol/L 298-514 0087-2) Potassium (test 3.2 mmol/L 3.5-5.3 L code = 2823-3) Chloride (test code 103 mmol/L 98-110 = 2075-0) CO2 (test code = 30 mmol/L -32 2027-9) Calcium (test code 8.4 mg/dL 8.6-10.3 L = 73755-2) DENISE (test code = FASTING:NO DENISE) FASTING: NO RAC (test code = Performing RAC) Organization Information: [facility]: [id number] Address: [address] [place] [phone] Director: Walter Haque Lab Interpretation Abnormal (test code = 58557-9) [facility] metabolic [id number] 06:44:00 Test Item Value Reference Interpretation Comments Range Glucose (test code 142 mg/dL 65-139 H Non-fast ing = 2345-7) reference inter john BUN (test code = 17 mg/dL - 3094-0) Creatinine (test 1.18 mg/dL 0.70-1.25 For patient s >49 code = 2160-0) years of age, the reference limit for Creatinine is approximately 1 3% higher for peopleidentifie d as -Iliana n. EGFR Non-Afr. See_Comment [Automated me ssage] Kyrgyz (test code The syst em which = 2775) generated this result transmit [place] reference range : > OR = 60 mL/min/1.73m2. The reference range was not used to interpret this result as normal/abnormal . EGFR See_Comment [Automated mes bianca] Kyrgyz (test code The syst em which = 2774) generated this result transmit [place] reference range : > OR = 60 mL/min/1.73m2. The reference range was not used to interpret this result as normal/abnormal . BUN/creatinine NOT APPLICABLE See_Comment [Automated message] ratio (test code = The syste m which 3097-3) generated this result transmit [place] reference range : 6 - 22 (calc). The reference range was not used to interpret this result as normal/abnormal . Sodium (test code = 141 mmol/L 212-858 1437-2) Potassium (test 3.2 mmol/L 3.5-5.3 L code = 2823-3) Chloride (test code 103 mmol/L 98-110 = 2075-0) CO2 (test code = 30 mmol/L 20-32 2027-9) Calcium (test code 8.4 mg/dL 8.6-10.3 L = 36871-8) DENISE (test code = FASTING:NO DENISE) FASTING: NO RAC (test code = Performing RAC) Organization Information: Site ID: [facility] Address: [address] [place] [phone] Director: Walter Haque Lab Interpretation Abnormal (test code = 62805-3) [facility] [id number] 14:01:41 Test Item Value Reference Range Interpretation Comments POC glucose (test code = 111 mg/dL 65-99 H Ope rator Name: [id number]) Marquis Solis ID: [id number] Lab Interpretation (test Abnormal code = 54051-9) [facility] [id number] 14:01:41 Test Item Value Reference Range Interpretation Comments POC glucose (test code = 111 mg/dL 65-99 H Ope rator Name: [id number]) Marquis Solis ID: [id number] Lab Interpretation (test Abnormal code = 95162-7) Pari WorleyARS-CoV-2 (COVID-19) RNA [Presence] in Respiratory specimen by ELLEN with probe [id number] 01:31:26 Test Item Value Reference Range Interpretation Comments SARS-CoV-2 (COVID-19) RNA Not detected Not-Detected [Presence] in Respiratory specimen by ELLEN with probe detection (test code = 83661-0) Whether patient is employed in a healthcare setting (test code = 91737-2) Whether the patient has symptoms related to condition of interest (test code = 73192-2) Patient was hospitalized because of this condition (test code = 65776-9) Whether the patient was admitted to intensive care unit (ICU) for condition of interest (test code = 56330-3) Whether patient resides in a congregate care setting (test code = 57034-9) CHET YAÑEZ [facility] [id number] 00:18:13 Test Item Value Reference Range Interpretation Comments Urine culture (test SEE COMMENT Bacteriu waldo screen code = 3502805) negative. [facility] [id number] 00:18:13 Test Item Value Reference Range Interpretation Comments Urine culture (test SEE COMMENT Bacteriu waldo screen code = 9370733) negative. [facility] [id number] 22:23:00 Test Item Value Reference Range Interpretation Comments ABO grouping (test code = 883-9) A Rh type (test code = 02779-5) POS Antibody screen (gel) (test code = NEG 890-4) [facility] [id number] 22:23:00 Test Item Value Reference Range Interpretation Comments ABO grouping (test code = 883-9) A Rh type (test code = 19365-6) POS Antibody screen (gel) (test code = NEG 890-4) Pari Salazar-CoV-2 (COVID-19) RNA [Presence] in Respiratory specimen by ELLEN with probe [id number] 01:12:56 Test Item Value Reference Range Interpretation Comments SARS-CoV-2 (COVID-19) RNA Not detected Not-Detected [Presence] in Respiratory specimen by ELLEN with probe detection (test code = 27751-3) Whether patient is employed in a healthcare setting (test code = 44154-0) Whether the patient has symptoms related to condition of interest (test code = 53509-7) Patient was hospitalized because of this condition (test code = 82286-7) Whether the patient was admitted to intensive care unit (ICU) for condition of interest (test code = 83356-1) Whether patient resides in a congregate care setting (test code = 73118-9) [facility] [id number] 11:16:46 Test Item Value Reference Range Interpretation Comments Body fluid consult SEE COMMENT Footnote- --------Reacti (test code = 987) ve Mesothe lial cells, macrophages and lymphocytes. Re viewed by Saqib Ny (test code = ASCITIES DENISE) [facility] Pre/Post [id number] 11:57:23 Test Item Value Reference Range Interpretation Comments Ventricular rate (test code = 253) Atrial rate (test code = 255) AZ interval (test code = 266) QRSD interval (test code = 260) QT interval (test code = 264) QTC interval (test code = 265) P axis 1 (test code = 267) QRS axis 1 (test code = 268) T wave axis (test code = 270) EKG impression (test code Normal sinus = 273) rhythm-Normal ECG- [facility] [id number] 16:39:52 Test Item Value Reference Range Interpretation Comments POC sodium (test code = 139 mmol/L 993-675 4880-0) POC potassium (test 2.9 mmol/L 3.5-5 LL code = 6298-4) POC chloride (test code 96 mmol/L 99-109 L = 2069-3) POC CO2 (test code = 28 mmol/L -8) POC glucose (test code 99 mg/dL 65-99 = 2339-0) POC BUN (test code = 20 mg/dL 8 6299-2) POC creatinine (test 0.9 mg/dl 0.7-1.2 code = 18744-8) POC hematocrit (test 34 % 41-51 L code = 4544-3) POC anion gap (test 19 mmol/L 8-20 Info Specialist Name: code = [id number]) Evi Stoner tDderrellice ID: [id number] Lab Interpretation Abnormal (test code = 19594-6) Pari WorleyARS-CoV-2 (COVID-19) RNA [Presence] in Respiratory specimen by ELLEN with probe [id number] 21:38:31 Test Item Value Reference Range Interpretation Comments SARS-CoV-2 (COVID-19) RNA Not detected Not-Detected [Presence] in Respiratory specimen by ELLEN with probe detection (test code = 94655-5) Whether patient is employed in a healthcare setting (test code = 85788-1) Whether the patient has symptoms related to condition of interest (test code = 37569-7) Patient was hospitalized because of this condition (test code = 75414-6) Whether the patient was admitted to intensive care unit (ICU) for condition of interest (test code = 36835-0) Whether patient resides in a congregate care setting (test code = 92106-9) CHET ALAN
[2022-10-15 16:14] LABS: Absolute Lymphocytes (CBC) 3.7 K/uL (0.7-4.9); Hematocrit 36.6 % (39.6-49.0); MCV 93.5 fL (80-100); MPV 6.2 fL (7.6-11.3); RBC Red Blood Cell Count 3.91 M/uL (4.33-5.43)
[2022-10-15 16:15] LABS: Protime INR 1.16
[2022-10-15 16:47] LABS: SARS-COV-2 RT PCR NEGATIVE (NEGATIVE)
[2022-10-15 17:00] LABS: ALT/SGPT 46 U/L (16-61); AST/SGOT 51 U/L (15-37); Albumin 2.6 g/dL (3.4-5.0); Alkaline Phosphatase 154 U/L (45-117); BUN Blood Urea Nitrogen 17 mg/dL (7-18); Bicarbonate 28 mmol/L (21-32); Bilirubin Direct 0.4 mg/dL (0-0.2); Bilirubin Total 1.6 mg/dL (0.2-1.0); Glomerular Filtration Rate 54 ml/min (=/>90); Glucose Level 339 mg/dL (74-106); Magnesium 1.9 mg/dL (1.6-2.4); NT PRO-BNP 179 pg/mL (<125); Protein, Total 6.7 g/dL (6.4-8.2); Sodium Level 137 mmol/L (136-145); Troponin High Sensitivity 20.3 pg/mL (<58.9)
--- NOTE | 2022-10-15 17:17 | RAD REPORT ---
EXAM DESCRIPTION: RAD - Chest Single View - 10/15/2022 4:28 pm CLINICAL HISTORY: COUGH COMPARISON: Two view chest 03/21/2019 TECHNIQUE: AP portable chest image was obtained 10/15/2022 4:28 pm . FINDINGS: No focal consolidation or mass. Patient has very pronounced interstitial opacification pat tern. When adjusting for technique, this is not substantially different from comparison. Severity of chronic disease can easily mask mild interstitial edema or infiltrate. Heart and vasculature are normal. No measurable pleural effusion and no pneumothorax. No acute bony abnormality seen. No acute aortic findings suspected. IMPRESSION: No acute cardiopulmonary process. The extensive chronic interstitial lung pattern can mask interstitial edema or infiltrate.
--- NOTE | 2022-10-15 17:49 | RAD REPORT ---
EXAM DESCRIPTION: CT - Abdomen Pelvis W Contrast - 10/15/2022 5:38 pm CLINICAL HISTORY: elevated liver enzymes, abdominal pain, diabetes COMPARISON: CT abdomen and pelvis 11/26/2020 TECHNIQUE: Biphasic, helical CT imaging of the abdomen and pelvis was performed following 100 ml non -ionic IV contrast. Oral contrast: No. All CT scans are performed using dose optimization technique as appropriate and may include automated exposure control or mA/KV adjustment according to patient size. FINDINGS: No suspicious findings in the lung bases. Liver shows a lobulated capsule contour. A focal liver lesion is not seen. A TIPS shunt is in place. No pancreatic or splenic abnormality seen. Well filled gallbladder shows no wall thickening or edema. No biliary tree abnormality. Gallstones and duct stones can be occult. Symmetric renal function is seen with no hydronephrosis or suspicious renal mass. Small cyst is seen in the anterior lower pole right kidney as an incidental finding. No pyelonephritis or acute parenchy mal process. No bladder abnormalities. No adrenal abnormalities. Gastric lumen is decompressed accentuating wall thickness. No abnormal mass or enhancement seen. No s mall bowel abnormality seen. Appendix is normal. There is moderately large stool volume distending bu t not dilating the colon from cecum through splenic flexure. Left inguinal hernia is present containi ng the proximal sigmoid colon. Herniated colon de la fuente are not thickened or edematous. No strangulation / incarceration CT findings. The herniated fat is not congested or edematous. Extremely small quantit ies of free fluid are noted. No free air or pneumatosis. No mass or bulky lymphadenopathy. Disc and bone degenerative changes are present. No acute or pathologic bone process. Vascular calcifi cations are present without acute finding. IMPRESSION: Cirrhotic liver changes with no focal liver lesions seen. A TIPS shunt is in place. Only trace amount of free fluid present in the peritoneal cavity. Left inguinal hernia contains proximal sigmoid colon. Herniated bowel does not show wall thickening o r edema. There is no congestion in the herniated fat.
[2022-10-15] MEDS ORDERED: NA CHLORIDE 0.9% 500 ML ONE (17:59)
[2022-10-15] MEDS ORDERED: INSULIN -REGULAR HUMAN 50 UNIT/0.5 ML ML ONE (17:59)
--- NOTE | 2022-10-15 18:19 | EDPHYS ---
Physician Documentation [facility] Name: Dick Branch Age: 72 yrs Sex: Male : 1950 Arrival Date: 10/15/2022 Time: 13:49 Bed 9 Private MD: ED Physician Grant Ramirez HPI: 10/15 15:45 This 72 yrs old Male presents to ER via Ambulatory with complaints of High Blood Sugar. cp 15:45 The patient or guardian reports hyperglycemia, that was potentially precipitated by cp eating. Onset: The symptoms/episode began/occurred today, reports checking blood sugar level and reading was 580. Associated signs and symptoms: Pertinent negatives: chest pain, abdominal pain, vomiting. Current symptoms: In the emergency department the patient's symptoms have improved, mildly. Patient reports history of known diabetes that he controls with diet. Reports over past several days he has not been watching his diet and blood sugars usually run in the 180's. Patient reports he has not eaten today. Historical: - Allergies: 18:37 Unable to obtain; kb3 - PMHx: 15:11 GERD; Hypertension; Diabetes mellitus; ss - PSHx: 15:11 R ear; ss - Immunization history:: Client reports receiving the 2nd dose of the Covid vaccine. - Social history:: Smoking status: Patient reports the use of cigarette tobacco products, smokes one-half pack cigarettes per day. ROS: 15:50 Constitutional: Negative for body aches, chills, fever, poor PO intake. cp 15:50 ENT: Negative for drainage from ear(s), ear pain, sore throat, difficulty swallowing, cp difficulty handling secretions. 15:50 Cardiovascular: Negative for chest pain, edema, palpitations. 15:50 Respiratory: Negative for cough, shortness of breath, wheezing. 15:50 Abdomen/GI: Negative for abdominal pain, nausea, vomiting, and diarrhea. 15:50 Skin: Negative for cellulitis, rash. 15:50 Neuro: Negative for altered mental status, dizziness, headache, syncope, weakness. 15:50 All other systems are negative. Exam: 15:55 Constitutional: The patient appears in no acute distress, alert, awake, cp non-diaphoretic, non-toxic, well developed, well nourished. 15:55 Head/Face: Normocephalic, atraumatic. cp 15:55 Eyes: Periorbital structures: appear normal, Conjunctiva: normal, no exudate, no injection, Sclera: no appreciated abnormality, Lids and lashes: appear normal, bilaterally. 15:55 ENT: External ear(s): are unremarkable, Nose: is normal, Mouth: Lips: moist, Oral mucosa: pink and intact, moist, Posterior pharynx: Airway: no evidence of obstruction, patent. 15:55 Neck: ROM/movement: is normal, is supple, without pain, no range of motions limitations. 15:55 Chest/axilla: Inspection: normal. 15:55 Cardiovascular: Rate: bradycardic, Rhythm: regular, Edema: is not appreciated, JVD: is not appreciated. 15:55 Respiratory: the patient does not display signs of respiratory distress, Respirations: normal, no use of accessory muscles, no retractions, labored breathing, is not present, Breath sounds: are clear throughout, no decreased breath sounds, no stridor, no wheezing. 15:55 Abdomen/GI: Inspection: distension, that is moderate, Bowel sounds: active, all quadrants, Palpation: abdomen is soft and non-tender, in all quadrants. 15:55 Back: pain, is absent, ROM is normal. 15:55 Skin: cellulitis, is not appreciated, no rash present. 15:55 Neuro: Orientation: to person, place \T\ time. Mentation: is normal, Motor: moves all fours, strength is normal, Gait: is steady. Vital Signs: 15:10 BP 140 / 57; Pulse 56; Resp 17; Temp 97.7(TE); Pulse Ox 100% on R/A; Weight 72.57 kg; ss Height 5 ft. 10 in. (177.80 cm); Pain 0/10; 18:30 BP 153 / 58; Pulse 52; Resp 18; Pulse Ox 99% ; kb3 15:10 Body Mass Index 22.96 (72.57 kg, 177.80 cm) ss MDM: 15:37 Patient medically screened. cp 16:00 Differential diagnosis: DKA, hyperglycemia, acute HI, bowel obstruction. cp 18:14 Data reviewed: vital signs, nurses notes, lab test result(s), radiologic studies, CT cp scan, plain films. Test interpretation: by ED physician or midlevel provider: plain radiologic studies. Counseling: I had a detailed discussion with the patient and/or guardian regarding: the historical points, exam findings, and any diagnostic results supporting the discharge/admit diagnosis, lab results, radiology results, the need for outpatient follow up, for definitive care, a family practitioner. ED course: Patient refuses any further testing and/or treatment for elevated blood glucose. Discussed findings of CT showing hernia, blood work showing elevated glucose level and liver enzymes. Patient stable for discharge and to f/u with family physician outpatient. 10/15 15:27 Order name: Glucose, Ancillary Testing; Complete Time: 15:37 EDMS 10/15 15:38 Order name: Basic Metabolic Panel; Complete Time: 17:08 cp 10/15 17:55 Interpretation: Normal except: GLUC 339; CRE 1.40; GFR 54; K 3.0. cp 10/15 15:38 Order name: CBC with Diff; Complete Time: 17:08 cp 10/15 17:09 Interpretation: Normal except: RBC 3.91; HGB 12.9; HCT 36.6; RDW 15.3; MPV 6.2; TIARRA% cp 37.6; MN% 15.1; EOSINOPHIL % 5.0; MNA 1.4. 10/15 15:38 Order name: LFT's; Complete Time: 17:08 cp 10/15 17:10 Interpretation: Normal except: AST 51; ALK 154; BILIT 1.6; BILID 0.4; ALB 2.6; GLOB cp 4.1; A/G 0.6. 10/15 15:38 Order name: Magnesium; Complete Time: 17:08 cp / 15:38 Order name: NT PRO-BNP; Complete Time: 17:08 cp 12/ 15:38 Order name: PT-INR; Complete Time: 17:08 cp 12/ 15:38 Order name: Troponin HS; Complete Time: 17:08 cp / 15:38 Order name: XRAY Chest (1 view); Complete Time: 17:53 cp / 15:38 Order name: COVID-19/FLU A+B; Complete Time: 17:08 cp 12/ 15:38 Order name: Ketone, Serum; Complete Time: 17:08 cp 10/15 17:14 Order name: CT Abd/Pelvis - IV Contrast Only; Complete Time: 17:53 cp 10/15 15:38 Order name: EKG; Complete Time: 15:39 10/15 15:38 Order name: Cardiac monitoring 10/15 15:38 Order name: EKG - Nurse/Tech 10/15 15:38 Order name: IV Saline Lock; Complete Time: 16:06 10/15 15:38 Order name: Labs collected and sent; Complete Time: 16:06 10/15 15:38 Order name: O2 Per Protocol 10/15 15:38 Order name: O2 Sat Monitoring 10/15 16:17 Order name: Labs - recollect needed: recollect chemistries; Complete Time: 16:29 eb Administered Medications: 18:16 Not Given (Patient Refused): NS 0.9% 500 ml IV at 250 ml/hr continuous kb3 18:16 Not Given (Patient Refused): Insulin Regular Human 5 units Sub-Q once kb3 18:16 Not Given (Patient Refused): Potassium Effervescent Tablet 50 mEq PO once; dissolve in kb3 4 ounces of water or juice Disposition: 19:16 Co-signature as Attending Physician, Grant Ramirez MD I agree with the assessment and rt plan of care. Disposition Summary: 10/15/22 18:18 Discharge Ordered Location: Home cp Problem: an ongoing problem cp Symptoms: are unchanged cp Condition: Stable cp Diagnosis - Diabetes mellitus due to underlying condition with hyperglycemia cp - Unilateral inguinal hernia, without obstruction or gangrene - left cp - Hypokalemia cp - Unspecified cirrhosis of liver cp Followup: cp - With: Private Physician - When: 2 - 3 days - Reason: Recheck today's complaints Discharge Instructions: - Discharge Summary Sheet cp - Cirrhosis cp - Potassium Content of Foods cp - Hyperglycemia cp - Form - Daily Diabetes Record cp - Blood Glucose Monitoring, Adult cp - Diabetes Mellitus and Nutrition, Adult cp - Inguinal Hernia, Adult cp - Hypokalemia cp Forms: - Medication Reconciliation Form cp - Thank You Letter cp - Antibiotic Education cp - Prescription Opioid Use cp Prescriptions: - Potassium Chloride 10 mEq Oral capsule, extended release - take 1 tablet by ORAL route every 12 hours for 5 days; 10 tablet; Refills: 0, cp Product Selection Permitted Signatures: Dispatcher [facility] Cecy Berry RN RN ss Dima Mercer PA PA cp Juanita Sharma Kelly, RN RN kb3 Grant Ramirez MD MD rt Corrections: (The following items were deleted from the chart) 17:55 17:09 Normal except: GLUC 339; CRE 1.40; GFR 54. cp cp
--- NOTE | 2022-10-15 18:19 | ER ---
Nurse's Notes [facility] [place] [address] Name: Dick Branch Age: 72 yrs Sex: Male : 1950 Arrival Date: 10/15/2022 Time: 13:49 Bed 9 Private MD: Diagnosis: Diabetes mellitus due to underlying condition with hyperglycemia;Unilateral inguinal hernia, without obstruction or gangrene-left;Hypokalemia;Unspecified cirrhosis of liver Presentation: 10/15 15:10 Chief complaint: Patient states: High blood sugar. Pt states at home his BGL was 580. ss Coronavirus screen: Client denies travel out of the [place] in the last 14 days. Ebola Screen: Patient denies exposure to infectious person. Patient denies travel to an Ebola-affected area in the 21 days before illness onset. Initial Sepsis Screen: Does the patient meet any 2 criteria? No. Patient's initial sepsis screen is negative. Does the patient have a suspected source of infection? No. Patient's initial sepsis screen is negative. Risk Assessment: Do you want to hurt yourself or someone else? Patient reports no desire to harm self or others. Onset of symptoms is unknown. 15:10 Method Of Arrival: Ambulatory ss 15:10 Acuity: MILLIE 3 ss Historical: - Allergies: 18:37 Unable to obtain; kb3 - PMHx: 15:11 GERD; Hypertension; Diabetes mellitus; ss - PSHx: 15:11 R ear; ss - Immunization history:: Client reports receiving the 2nd dose of the Covid vaccine. - Social history:: Smoking status: Patient reports the use of cigarette tobacco products, smokes one-half pack cigarettes per day. Screenin:30 Abuse screen: Denies threats or abuse. Denies injuries from another. Nutritional kb3 screening: No deficits noted. Tuberculosis screening: No symptoms or risk factors identified. Fall Risk None identified. Assessment: 15:15 Reassessment: BGL 353. ss 17:30 General: Appears in no apparent distress. Behavior is calm, cooperative, Received care kb3 of pt from GRISELDA hammond. Pt asking why he had a CT scan and why he needs medication because he never needs medication for diabetes. Dima WALLER notified, reports he will speak with pt. 17:30 Pain: Denies pain. kb3 18:00 General: Dima WALLER at bedside. Pt refusing medications at this time. Sylvie WALLER spoke kb3 with pt at length regarding illness and medication treatment. Pt continues to refuse.. Vital Signs: 15:10 BP 140 / 57; Pulse 56; Resp 17; Temp 97.7(TE); Pulse Ox 100% on R/A; Weight 72.57 kg; ss Height 5 ft. 10 in. (177.80 cm); Pain 0/10; 18:30 BP 153 / 58; Pulse 52; Resp 18; Pulse Ox 99% ; kb3 15:10 Body Mass Index 22.96 (72.57 kg, 177.80 cm) ED Course: 13:49 Patient arrived in ED. as 13:55 Dima Mercer PA is PHCP. cp 13:55 Grant Ramirez MD is Attending Physician. cp 15:11 Triage completed. ss 15:11 Arm band placed on right wrist. ss 16:06 Initial lab(s) drawn, by me, sent to lab. Inserted saline lock: 22 gauge in left iw antecubital area, using aseptic technique. Blood collected. 16:06 COVID-19/FLU A+B Sent. iw 16:30 XRAY Chest (1 view) In Process Unspecified. EDMS 17:30 Patient has correct armband on for positive identification. Bed in low position. Call kb3 light in reach. 17:30 No provider procedures requiring assistance completed. kb3 17:40 CT Abd/Pelvis - IV Contrast Only In Process Unspecified. EDMS 18:38 IV discontinued, intact, bleeding controlled, No redness/swelling at site. kb3 Administered Medications: 18:16 Not Given (Patient Refused): NS 0.9% 500 ml IV at 250 ml/hr continuous kb3 18:16 Not Given (Patient Refused): Insulin Regular Human 5 units Sub-Q once kb3 18:16 Not Given (Patient Refused): Potassium Effervescent Tablet 50 mEq PO once; dissolve in kb3 4 ounces of water or juice Medication: 17:30 VIS not applicable for this client. kb3 Outcome: 18:18 Discharge ordered by . cp 18:38 Discharged to home ambulatory, with family. kb3 18:38 Condition: good 18:38 Discharge instructions given to patient, Instructed on discharge instructions, follow up and referral plans. medication usage, Demonstrated understanding of instructions, follow-up care, medications, Prescriptions given X 1. 18:40 Patient left the ED. kb3 Signatures: Dispatcher [employer] EDMS Keiko Knight Irene, RN Cecy Martinez RN RN Dima Warren PA PA cp Bradberry, Kelly, RN RN kb3
[2022-10-16 12:18] VITALS: TEMP 97.7
[2022-10-16 12:24] VITALS: BP 153/58; O2SAT 99
== END 2022-10-15 18:40 | disposition home or self-care (01) ==
LOC: ER 13:42
DX: E11.65 Type 2 diabetes mellitus with hyperglycemia (principal); K40.90 Unilateral inguinal hernia, without obstruction or gangrene, not specified as recurrent; K74.60 Unspecified cirrhosis of liver; I10 Essential (primary) hypertension; Z20.822 Contact with and (suspected) exposure to COVID-19
CPT/HCPCS: 85025; 80048; 36415; 82010; 83735; 85610; 82947; 80076; 84484; 83880; 0240U; 74177; 71045; 99284; Q9967; J1815; J7040

== ENCOUNTER 2024-08-14 09:27 | Inpatient (IN) | payer OTHER ==
[2024-08-14 11:24] VITALS: BMI 20.7
[2024-08-14] MEDS: ALBUMIN HUMAN 25% 100 ML IV SCH (15:55)
[2024-08-14] MEDS: NA CHLORIDE 0.9% 1,000 ML IV SCH (15:56)
[2024-08-14] MEDS: NAPROXEN 250 MG TAB PO SCH (15:57)
[2024-08-14] MEDS: POTASS/SODIUM PHOSPHATE 1 PKT POWD.PACK PO SCH (16:11)
[2024-08-14 17:24] LABS: Albumin 1.7 g/dL (3.4-5.0); Anion Gap 12.5 mEq/L (5.0-15.0); Magnesium 2.7 mg/dL (1.6-2.4); Potassium 4.5 mEq/L (3.5-5.1); Prealbumin 5.3 mg/dL (20-40)
--- NOTE | 2024-08-14 18:08 | RAD REPORT ---
EXAM: Abdomen 1 View (KUB) HISTORY: [facility] MAIN ascites COMPARISON: None FINDINGS: Single view of the abdomen shows a nonspecific, nonobstructive bowel gas pattern. No suspi cious calcifications are seen. The bones are unremarkable. IMPRESSION: No acute findings on abdominal radiography. If there is persistent clinical concern for a scites, additional evaluation by abdominal ultrasound be helpful.
[2024-08-14 18:37] LABS: Absolute Basophils 0.1 K/uL (0-0.5); Absolute Eosinophils 0.1 K/uL (0-0.5); Absolute Lymphocytes (CBC) 3.5 K/uL (0.7-4.9); Absolute Neutrophil 15.6 K/uL (1.8-8.0); Basophils % 0.3 % (0-1.3); Eosinophils % 0.7 % (0-4.4); Hematocrit 19.1 % (39.6-49.0); Lymphocytes % 16.6 % (15.3-44.8); MCH 27.3 pg (27.0-35.0); MCHC 30.9 g/dL (32.0-36.0); MCV 88.2 fL (80-100); MPV 7.2 fL (7.6-11.3); Monocytes % 9.3 % (3.3-12.3); Neutrophils % 73.1 % (41.7-73.7); Nucleated Red Blood Cells % 0.1 % (0-0); Platelets 183 thou/uL (152-406); RBC Red Blood Cell Count 2.17 M/uL (4.33-5.43); Red Cell Distribution Width 20.4 % (12.1-15.2)
[2024-08-14 18:40] LABS: Hemoglobin 5.9 g/dL (13.6-17.9)
[2024-08-14 18:46] LABS: Specific Gravity 1.013 (1.005-1.030); Sqamous Epithelial <5 /HPF (None Seen); Urine Bacteria <20 /HPF (<20); Urine Bilirubin NEGATIVE (Negative); Urine Blood Negative (Negative); Urine Clarity Turbid (Clear); Urine Color Light-Yellow (Yellow); Urine Culture Reflex Order REFLEXED; Urine Glucose NEGATIVE (Negative); Urine Ketones NEGATIVE (Negative); Urine Micro Reflex YN NO BILL MICROSCOPIC; Urine Mucus Slight /HPF (None Seen); Urine Nitrite NEGATIVE (Negative); Urine Protein NEGATIVE (Negative); Urine RBC <5 /HPF (None Seen); Urine Urobilinogen Normal (Normal); Urine Yeast (Budding) Moderate /HPF (None Seen); Urine pH 6.5 (5.0-7.0)
[2024-08-14] MEDS ORDERED: NA CHLORIDE 0.9% 250 ML IV SCH (19:00)
[2024-08-14 19:05] LABS: Anisocytosis 1+; Blood Morphology Comment NOTED (NOT SEEN); Platelet Estimate ADEQ; Platelets, Giant PRESENT; Toxic Granulation 1+; White Blood Cell Scan OK (OK)
[2024-08-14 19:06] VITALS: BP 103/42; TEMP 96.3
[2024-08-14] MEDS ORDERED: [UNRECOGNIZED DRUG - OTHER] PO SCH (20:00)
[2024-08-14] MEDS: MEGESTROL 40 MG TAB PO SCH (20:00)
[2024-08-14] MEDS: LACTULOSE 10 GM/15 ML PO SCH (20:54)
--- NOTE | 2024-08-14 21:11 | RAD REPORT ---
EXAMINATION: XR Chest Single View CLINICAL INDICATION: Male, 74 years old.,cough TECHNIQUE: Frontal chest projection is submitted. Examination is limited by patient positioning and t echnique. COMPARISON: 10/15/2022 FINDINGS: The lungs are well inflated and clear. Mild chronic interstitial changes, may reflect COPD, stable. N o pneumothorax or sizable effusion. The heart is normal in size. IMPRESSION: No acute intrathoracic abnormalities.
[2024-08-14] MEDS ORDERED: NA CHLORIDE 0.9% 1,000 ML IV SCH (22:00)
--- NOTE | 2024-08-14 22:27 | P.HP ---
Certification for Inpatient With expected LOS: >2 Midnights Practitioner: I am a practitioner with admitting privileges, knowledge of patient current condition, hospital course, and medical plan of care. Services: Services provided to patient in accordance with Admission requirements found in Title 42 Section 412.3 of the Code of Federal Regulations Patient History Date of Service: 08/14/24 Reason for admission: transfer for low hemoglobin History of Present Illness: 74-year-old male with history of type 2 diabetes, Nash's esophagus, alcoholic cirrhosis, history of TIPS procedure, severe protein calorie malnutrition, aortic stenosis, skin cancer was admitted this evening to the rehab floor for debility. Medicine consultation was requested due to abnormal blood work and weakness. Initial labs showed a significant anemia, elevated ammonia level, elevated lactic date, elevated white blood cell. Urinalysis showed yeast. The patient did report some mild lower abdominal discomfort. He did state history of dark stools. He has received much of his care at [facility]. Patient does chronically take lactulose. He does have history of transjugular intrahepatic portosystemic shunt. During chart review it was noted that he may have been considered for liver transplant in the past. The patient was requested to come to the hospital by his home health due to not looking well. Initial set of vitals were stable. Patient was mentating okay and answering questions. A request to transfer the patient to stepdown or ICU was made. Allergies bumetanide Allergy (Verified 08/14/24 13:08) Nausea/Vomiting ciprofloxacin Allergy (Verified 08/14/24 13:08) Nausea/Vomiting dexlansoprazole [From Dexilant] Allergy (Verified 08/14/24 13:08) Nausea/Vomiting doxycycline Allergy (Verified 08/14/24 12:59) Nausea/Vomiting empagliflozin [From Jardiance] Allergy (Verified 08/14/24 13:08) Nausea/Vomiting eplerenone Allergy (Verified 08/14/24 13:08) Nausea/Vomiting furosemide Allergy (Verified 08/14/24 13:08) Nausea/Vomiting losartan Allergy (Verified 08/14/24 13:08) Nausea/Vomiting metformin Allergy (Verified 08/14/24 13:08) Nausea/Vomiting metronidazole Allergy (Verified 08/14/24 13:08) Nausea/Vomiting midodrine Allergy (Verified 08/14/24 13:08) Nausea/Vomiting omeprazole Allergy (Verified 08/14/24 13:08) Nausea/Vomiting pantoprazole Allergy (Verified 08/14/24 13:00) Nausea/Vomiting propranolol Allergy (Verified 08/14/24 13:08) Nausea/Vomiting rifaximin [From Xifaxan] Allergy (Verified 08/14/24 13:08) Nausea/Vomiting spironolactone Allergy (Verified 08/14/24 13:08) Nausea/Vomiting zinc Allergy (Verified 08/14/24 13:08) Nausea/Vomiting Home Medications: Amiloride HCl 5 mg PO [id number] 08/14/24 Calcium Carbonate [Tums] 400 mg PO DAILY 08/14/24 Insulin Glargine,Hum.rec.anlog [Lantus Solostar] 18 unit SQ BEDTIME 08/14/24 Lactulose 30 gm PO TID 08/14/24 Naproxen Sodium [Aleve] 220 mg PO DAILY 08/14/24 Potassium Phosphate,Monobasic [K-Phos Original] 500 mg PO DAILY 08/14/24 Torsemide [Demadex] 20 mg PO DAILY 6PM 08/14/24 Torsemide [Demadex] 40 mg PO [id number] 08/14/24 - Past Medical/Surgical History Diabetic: Yes - Social History Smoking Status: Never smoker Alcohol use: Yes CD- Drugs: No Caffeine use: Yes Place of Residence: Home Review of Systems 10-point ROS is otherwise unremarkable General: Weakness, Malaise Gastrointestinal: Abdominal Pain Physical Examination - Vital Signs Temperature: 96.3 F Blood Pressure: 103/42 Pulse: 86 Respirations: 16 Pulse Ox (%): 100 - Physical Exam General: Alert, Disheveled Respiratory: Clear to auscultation bilaterally, Normal air movement Cardiovascular: Regular rate/rhythm, Systolic murmur Gastrointestinal: Soft and benign, Non-distended Musculoskeletal: Swelling - Studies Laboratory Data (last 24 hrs) 08/15/24 08/14/24 08/14/24 04:00 19:30 18:17 WBC Cancelled Cancelled 21.30 H Hgb Cancelled Cancelled 5.9 L* Hct Cancelled Cancelled 19.1 L Plt Count Cancelled Cancelled 183 Sodium Potassium BUN Creatinine Glucose Magnesium 08/14/24 16:52 WBC Hgb Hct Plt Count Sodium 134 L Potassium 4.5 BUN 41 H Creatinine 1.91 H Glucose 168 H Magnesium 2.7 H Assessment and Plan - Problems (Diagnosis) (1) Anemia Current Visit: Yes Status: Acute (2) Alcoholic cirrhosis Current Visit: Yes Status: Acute (3) Leukocytosis Current Visit: Yes Status: Acute (4) Yeast UTI Current Visit: Yes Status: Acute (5) Anasarca Current Visit: Yes Status: Acute (6) Protein-calorie malnutrition, severe Current Visit: Yes Status: Acute (7) CKD (chronic kidney disease) Current Visit: Yes Status: Acute (8) Insulin dependent type 2 diabetes mellitus Current Visit: Yes Status: Acute - Plan 74-year-old male with history of liver cirrhosis, diabetes, chronic kidney disease, aortic stenosis admitted to rehab for debility. Patient was noted to have severe anemia. Severe anemia Dark stools Nash esophagus --Will transfer patient to stepdown or ICU -- Currently has 2 IVs, -- Continue IV fluids -- Blood pressure closely -- Repeat hemoglobin after transfusion -- Stool fecal occult ordered -- IV PPI -- GI consultation, on-call provider paged and discussed with Liver cirrhosis Elevated ammonia level -- Continue lactulose --Ultrasound abdomen ordered --Patient n.p.o. Chronic kidney disease --Will need to renally dose medications Leukocytosis Lactic acidosis Sepsis UTI yeast --Continue IV vancomycin and Zosyn --Pharmacist was paged for discussing fluconazole dosing, may need to discuss during day Insulin-dependent diabetes --Fingerstick blood sugars, sliding scale insulin SCDs Disposition: Guarded, may consider goals of care discussion - Advance Directives Does patient have a Living Will: No Does patient have a Durable POA for Healthcare: Yes
[2024-08-14] MEDS ORDERED: VANCOMYCIN 1 GM in NA CHLORIDE 0.9% 250 ML IVPB SCH (23:00)
[2024-08-15] MEDS ORDERED: PIPER TAZO 3.375 GM in NA CHLORIDE 0.9% 100 ML IV SCH (01:00)
--- NOTE | 2024-08-15 04:30 | HP ---
Date of Admission: 08/14/2024 Time Of Service: 1:40 p.m. Chief Complaint: "I'm very weak, cannot walk, cannot stand." History Of Present Illness: Mr. Branch is a 74-year-old patient with hypertension, cirrhosis of the liver, diabetes mellitus type 2, chronic kidney disease stage 3, urinary tract infection, peripheral neuropathy, Nash's esophagitis, hepatic encephalopathy requiring constant lactulose use, nicotine dependency, and he was admitted to [facility] twice in the month for increased ammonia levels cont ributing to his encephalopathy and decreased mobility. His treatment was holding diuretics, restarti ng lactulose, and the patient did begin to return to a baseline level of cognitive functioning, disch arged home, and the did continue the lactulose 3 times daily up to 45 cc daily. His acute renal insufficiency also improved. Troponin did trend. He did require a unit of blood due to severe anem ia. After he was released back home, he did receive physical therapy, wound care, and due to the pat ient's failure to thrive by Home Health, he was referred again for inpatient rehabilitation. He did have as noted multiple wounds with some weeping of the wounds and did have those wounds from multiple falls. His lower extremity edema needed to be addressed with likely albumin being added to reduce o smotic loss of fluid and to pull fluid back into the vascular system. Furthermore, he has had very p oor oral intake, become significantly malnourished, and his noted had been missing hydration in addition to his meals and has had decline in weight. Despite that, he is still taking lactulose and having bowel movements further contributing to dehydration. He did ambulate about 25 feet with a Rol lator and maximum assistance. Required total assistance for perianal care, for dressing, for showeri ng. Furthermore, for his confusion or encephalopathy, did require speech. As a result, he is determ ined to be a good candidate for inpatient rehabilitation as he was medically cleared and inpatient re habilitation would reduce his risk of rehospitalization and help him to return to his prior level of functioning. Past Medical History: As noted above. Allergies: HE HAS A LONG LIST INCLUDING BUMETANIDE AND THEY ALL CAUSE NAUSEA AND VOMITING ALONG WITH CIPROFLOXACIN, DEXILANT, DOXYCYCLINE, JARDIANCE, EPLERENONE, FUROSEMIDE, LOSARTAN, METFORMIN, METRON IDAZOLE, MIDODRINE, OMEPRAZOLE, PANTOPRAZOLE, PROPRANOLOL, RIFAXIMIN, SPIRONOLACTONE, AND ZINC. Current Medications: Amiodarone 5 mg daily, Tums 500 mg daily. Continued medications, he has Semgle e insulin 18 units daily, Megace 40 mg twice daily, Naprosyn 500 mg every 6 hours as needed, Neutra-P hos powder 1 packet daily, sodium chloride, he is receiving a bolus of 500 cc and we will continue wi th 75 an hour normal saline. Also, Demadex 40 mg daily. Laboratory Studies: Today, his white blood cell count is significantly elevated to 21.3, hemoglobin very low at 5.9. He is going to receive a unit of blood as well. Hematocrit 19.1, platelets 183, ne utrophils 73.1. Sodium 134, potassium 4.5, chloride 104, carbon dioxide 22, BUN 41, creatinine 1.91, glucose ranged from 163 to 168. Note, his lactic acid very elevated to 4.9. Lactate dehydrogenase normal at 225. Ammonia level is 124, albumin 1.7, prealbumin very low at 5.3, magnesium 2.7, calcium 8.3. His urine has 250 esterase, white blood cell count 10 to 20, moderate budding yeast, greater t reilly 20 hyaline casts, turbid clarity. KUB study shows no acute findings on abdominal radiography. N ote, if ascites is to worry, then an abdominal ultrasound may be considered. Chest x-ray shows no ac tyrell intrathoracic abnormalities. The findings may reflect COPD that are stable. Lungs were well inf lated and clear. No sizable effusion seen. Family History: Noncontributory. Social History: No current alcohol, tobacco, or IV drug use. Review of Systems: He of course notes difficulty with weakness in the legs, some poor appetite, difficulty maintaining u se of his legs and arms due to significant weakness and depressed mood. Physical Examination: Vital Signs: Current blood pressure 103/42, pulse 86, respiratory rate 16, temperature 96.3, oxygen saturation 100%. General: Again, Mr. Branch is in bed. He appears somewhat emaciated and mildly depressed and is wan ting to increase his strength in the legs. He does sit up there to have some bruising and weeping in the arms and legs with some moderate third-spacing noted with some edema in the legs and again some weeping of clear fluid from the legs. Lungs: With movement of air. Abdomen: Nondistended. No obvious fluid wave. Neurological: Exam shows diffuse weakness, proximal and distal. Stocking-glove loss to light touch and temperature. No obvious focal cranial nerve deficits. Current Level Of Functioning: Currently, supervision for eating, oral hygiene. Maximal assistance f or toileting, dependent for bathing, upper body dressing, lower body dressing, donning and doffing of footwear. Supervision for rolling [id number], [id number], moderate assistance for going from sitting to lying, lying to sitting and standing, and moderate assistance for sit to stand. Chair tra nsfer, moderate assistance. Ambulation, moderate assistance, 25 feet with a Rollator. Wheelchair, 2 5 feet, maximal assistance. Assessment: Mr. Branch is a 74-year-old patient in the rehabilitation unit with cirrhosis of the penny er. He has significant debility. Currently, with his blood parameters, he is meeting criteria for s evere anemia, for sepsis with very elevated lactic acid of 4.9. His procalcitonin is pending. He lam s ammonia of 124 from his liver cirrhosis. He has renal insufficiency and dehydration. Creatinine o f 1.91 and mild hyponatremia. Sodium 134. Urinalysis suggests possible urinary tract infection with elevated esterase, white blood cell count, turbid clarity. [place] [address] .3, and there is elevated absolute neutrophils of 15.3, but neutrophils total are 73.1. His addition al comorbid conditions in terms of his rehabilitation admission are impairment category of 20, miscel laneous. Impairment group code is 16, debility, and etiologic diagnosis, cirrhosis of the liver. Ad ditional comorbidities of chronic anemia, chronic kidney disease, decreased mobility, decreased physi addie functioning, diabetes mellitus type 2, weeping of the lower extremities with edema, severe malnut rition, possible sepsis, recurrent falls, tobacco abuse, and malnutrition. He also has Nash's eso phagus. Plan: The patient, actually at this point since his blood work is showing the possibility of sepsis, will have hospitalist consultation if a higher level of care is required. Otherwise, if the patient is able to, will have physical, occupational, and speech therapy to address his condition. His rodrigo rbid conditions which are listed will be managed by continuing medications which do include Semglee i nsulin, he has amiloride for addressing his potassium replacement. He has Tums on board, Megace for appetite stimulation. He has lactulose which will be for his liver cirrhosis. He has elevated tab ia, again may require the need for blood transfusion for severe anemia. We will have his protein lev el addressed by albumin being added. Comorbidities That Are Impacting Rehabilitation: The patient currently is actually sick for multiple reasons including potential sepsis, renal failure, liver failure, third-spacing, significant debilit y and of course his liver cirrhosis. He is severely dehydrated in addition to requiring supplementat ion of protein by IV and fluids. The patient is possibly best placed in acute care given his multipl e medical issues. Rehab Plan: At this point, depending on the patient is able to be either managed on the rehab unit w ith the help of hospitalist, he may have to be discharged down to the acute care floor. At this poin t, if he is, he will not continue therapy. If he can be managed, we will work with him to transfer f rom bed to chair to toilet to wheelchair, begin to mobilize via wheelchair and rolling walker, and go up and down a few steps. Mr. Branch did have some understanding of the process of his admission to the inpatient rehabilitatio n unit, but at this point, he is being evaluated to see if he needs to go to the acute care floor. H ospitalist involvement will be very helpful. Barriers To Discharge: Currently, the patient just came into the unit from home and again blood work showed significant abnormalities potential for sepsis and he may have to go to the acute care floor. Length Of Stay: To be determined depending on how he is doing. Disposition: May have to go to acute care floor. Prognosis: He is in more serious condition at this point. Rehab Specific Goals: Will all depend on if the patient is able to continue in inpatient rehab or lam ve to go to the floor and have acute therapy. The patient will now not have goals set as he again may have to go to the acute care floor. By signing this document, I acknowledge I personally performed a full physical examination on Mr. Jd camarena no later than 24 hours after his admission to the inpatient rehabilitation facility and at this p oint we will determine if he is able to tolerate the above course of treatment at an intensive level. Given his state of condition, he may again have to be discharged to the acute care floor. If he is able to remain in the unit, an individualized plan of care for him will be completed by hospital day 4 based on the preadmission screen, history and physical, and therapy evaluations. BRAD Voice ID: [id number]
--- NOTE | 2024-08-15 07:33 | RAD REPORT ---
EXAMINATION: COMPLETE ABDOMINAL ULTRASOUND CLINICAL INDICATION: hx of cirrhosis TECHNIQUE: Grayscale ultrasonography of the abdomen was performed. COMPARISON: 08/30/2023 FINDINGS: LIVER: Shrunken nodular contour compatible with moderate cirrhosis. GALLBLADDER: Difficult to visualize but grossly unremarkable. BILE DUCTS: Intrahepatic and extrahepatic bile ducts appear normal. Measured near the rafael hepatis , the common bile duct is 5 mm. RIGHT KIDNEY: Mildly echogenic without hydronephrosis. LEFT KIDNEY:. Poorly visualized due to bowel gas shadowing. SPLEEN: Normal in echogenicity, with length of 10 cm. PANCREAS/AORTA: Partially obscured by bowel gas without abnormality grossly appreciated. Mild ascites. IMPRESSION: Moderate liver cirrhosis. Mild ascites. Echogenic right kidney could indicate underlying medical renal disease. Left kidney not well assessed due to bowel gas.
[2024-08-15] MEDS ORDERED: INSULIN GLARGINE 100 UNIT/ML SQ SCH (08:00)
[2024-08-15] MEDS ORDERED: CALCIUM CARBONATE CHEW 500MG TAB PO SCH (08:00)
[2024-08-15] MEDS ORDERED: AMILORIDE 5 MG PO SCH (08:00)
[2024-08-15] MEDS ORDERED: AMILORIDE HCL 5 MG TABLET PO SCH (08:00)
[2024-08-15] MEDS ORDERED: TORSEMIDE 20 MG TAB PO SCH ×2 (08:00→20:00)
== END 2024-08-14 22:12 | disposition short-term general hospital (02) | DRG 441 ==
LOC: 5TH 10:50
PROVIDERS: ADMIT Psychiatry & Neurology Neurology with Special Qualifications in Child Neurology; ATTEND Psychiatry & Neurology Neurology with Special Qualifications in Child Neurology
DX: K76.82 Hepatic encephalopathy (principal); A41.9 Sepsis, unspecified organism; E43 Unspecified severe protein-calorie malnutrition; B37.49 Other urogenital candidiasis; R53.81 Other malaise; K70.30 Alcoholic cirrhosis of liver without ascites; I12.9 Hypertensive chronic kidney disease with stage 1 through stage 4 chronic kidney disease, or unspecified chronic kidney disease; N18.30 Chronic kidney disease, stage 3 unspecified; G62.9 Polyneuropathy, unspecified; K22.70 Barrett's esophagus without dysplasia; D64.9 Anemia, unspecified; E11.22 Type 2 diabetes mellitus with diabetic chronic kidney disease; Z68.20 Body mass index [BMI] 20.0-20.9, adult; F17.200 Nicotine dependence, unspecified, uncomplicated
CPT/HCPCS: 36415; 36569; 71045; 74018; 76700; 80048; 81001; 82040; 82140; 82947; 83605; 83615; 83735; 84134; 84145; 85025; 87086; 87088; 97110; 97161; 97165; 97530; J7030; P9047

== ENCOUNTER 2024-08-14 22:57 | Inpatient (IN) | payer OTHER ==
[2024-08-14] MEDS ORDERED: GLUCAGON 1 MG/VIAL IM PRN (23:35)
[2024-08-14] MEDS ORDERED: ONDANSETRON 4 MG/2 ML VIAL IV PRN (23:35)
[2024-08-14] MEDS: VANCOMYCIN 1 GM in NA CHLORIDE 0.9% 250 ML IVPB SCH (23:38)
[2024-08-14] MEDS: NA CHLORIDE 0.9% 500 ML ONE (23:44)
[2024-08-14] MEDS ORDERED: NA CHLORIDE 0.9% 250 ML IV SCH (23:45)
[2024-08-14] MEDS: NA CHLORIDE 0.9% 1,000 ML IV SCH (23:45)
--- NOTE | 2024-08-14 23:48 | P.HP ---
Certification for Inpatient With expected LOS: >2 Midnights Practitioner: I am a practitioner with admitting privileges, knowledge of patient current condition, hospital course, and medical plan of care. Services: Services provided to patient in accordance with Admission requirements found in Title 42 Section 412.3 of the Code of Federal Regulations Patient History Date of Service: 08/14/24 Reason for admission: anemia History of Present Illness: 74-year-old male history of type 2 diabetes, Nash's esophagus, alcoholic cirrhosis, history of TIPS procedure in 2020, severe protein calorie malnutrit ion, aortic stenosis, skin cancer was admitted this evening to rehab floor for debility. Medicine consultation was requested due to abnormal blood work and weakness. Initial labs showed significant weakness anemia elevated ammonia, elevated lactic acid, elevated white blood cells as well as urinalysis showed yeast. Patient did report some mild lower abdominal pain. As well as dark stools. The patient has received much of his care at [facility]. He does take lactulose chronically. He does have history of transjugular intrahepatic portosystemic shunt. During chart review as patient was also considered for liver transplant. The patient was requested to come to the hospital by his home health due to not looking well. Initial vitals were stable. Patient was mentating okay and answering questions. Patient was transferred to the ICU due to his status. Allergies bumetanide Allergy (Verified 08/14/24 13:08) Nausea/Vomiting ciprofloxacin Allergy (Verified 08/14/24 13:08) Nausea/Vomiting dexlansoprazole [From Dexilant] Allergy (Verified 08/14/24 13:08) Nausea/Vomiting doxycycline Allergy (Verified 08/14/24 12:59) Nausea/Vomiting empagliflozin [From Jardiance] Allergy (Verified 08/14/24 13:08) Nausea/Vomiting eplerenone Allergy (Verified 08/14/24 13:08) Nausea/Vomiting furosemide Allergy (Verified 08/14/24 13:08) Nausea/Vomiting losartan Allergy (Verified 08/14/24 13:08) Nausea/Vomiting metformin Allergy (Verified 08/14/24 13:08) Nausea/Vomiting metronidazole Allergy (Verified 08/14/24 13:08) Nausea/Vomiting midodrine Allergy (Verified 08/14/24 13:08) Nausea/Vomiting omeprazole Allergy (Verified 08/14/24 13:08) Nausea/Vomiting pantoprazole Allergy (Verified 08/14/24 13:00) Nausea/Vomiting propranolol Allergy (Verified 08/14/24 13:08) Nausea/Vomiting rifaximin [From Xifaxan] Allergy (Verified 08/14/24 13:08) Nausea/Vomiting spironolactone Allergy (Verified 08/14/24 13:08) Nausea/Vomiting zinc Allergy (Verified 08/14/24 13:08) Nausea/Vomiting Home Medications: Amiloride HCl 5 mg PO [id number] 08/14/24 Calcium Carbonate [Tums] 400 mg PO DAILY 08/14/24 Insulin Glargine,Hum.rec.anlog [Lantus Solostar] 18 unit SQ BEDTIME 08/14/24 Lactulose 30 gm PO TID 08/14/24 Naproxen Sodium [Aleve] 220 mg PO Q6H 08/14/24 Potassium Phosphate,Monobasic [K-Phos Original] 500 mg PO DAILY 08/14/24 Torsemide [Demadex*] 20 mg PO DAILY 6PM 08/14/24 Torsemide [Demadex*] 40 mg PO [id number] 08/14/24 - Past Medical/Surgical History Diabetic: Yes - Social History Alcohol use: Yes CD- Drugs: No Caffeine use: Yes Review of Systems 10-point ROS is otherwise unremarkable Gastrointestinal: Abdominal Pain Physical Examination - Physical Exam General: Alert, Disheveled Respiratory: Clear to auscultation bilaterally, Normal air movement Cardiovascular: Irregular heart rate/rhythm, Systolic murmur Gastrointestinal: Soft and benign, Tenderness Integumentary: Skin breakdown Assessment and Plan - Problems (Diagnosis) (1) Alcoholic cirrhosis Current Visit: No Status: Acute (2) Anemia Current Visit: No Status: Acute (3) CKD (chronic kidney disease) Current Visit: No Status: Acute - Plan 74-year-old male with history of liver cirrhosis, diabetes, chronic kidney disease, aortic stenosis admitted earlier to rehab for debility transferred to ICU for severe anemia. Severe anemia Reported dark stool Nash esophagus Reported history of TIPS procedure --Admitted to ICU -- Continue IV fluids normal saline, will bolus if needed for lower blood pressure -- 2 units PRBC ordered -- PPI drip -- Octreotide drip -- Repeat hemoglobin once transfusion complete Liver cirrhosis Elevated ammonia level --Continue lactulose -- Ultrasound of abdomen was ordered on rehab floor -- Keep n.p.o. Chronic kidney disease --Renally dose medications Leukocytosis Elevated lactate Sepsis Yeast UTI --Check blood cultures -- Continue IV vancomycin and Zosyn -- Will consider adding fluconazole, pharmacist paged Insulin-dependent diabetes --Fingerstick blood sugars sliding scale insulin Anasarca Severe protein calorie malnutrition A-fib DVT: SCDs Disposition: Guarded, may consider discussing goals of care when family available - Advance Directives Does patient have a Living Will: No Does patient have a Durable POA for Healthcare: Yes
[2024-08-14] MEDS: NA CHLORIDE 0.9% 500 ML IV ONE (23:52)
[2024-08-15] MEDS: VANCOMYCIN 500 MG/VIAL ONE (01:33)
[2024-08-15] MEDS: VANCOMYCIN 1 GM/VIAL ONE (01:33)
[2024-08-15] MEDS: NA CHLORIDE 0.9% 250 ML ONE ×2 (01:33→05:27)
--- NOTE | 2024-08-15 01:49 | RAD REPORT ---
CLINICAL HISTORY: PICC line placement. COMPARISON: None. TECHNIQUE: XR CHEST 1 VIEW 08/15/2024 12:34 AM CDT FINDINGS: Cardiac silhouette is normal in size. Lungs are clear without consolidation, atelectasis, mass or padmini ma. There is no pleural effusion. There is no pneumothorax. There are no acute osseous findings. IMPRESSION: Clear lungs. Electronically signed by: Matthias Mitchell MD 08/15/2024 01:44 AM CDT RP Due to temporary technical issues with the PACS/[employer] reporting system, reports are being brigette d by the in-house radiologist without review as a courtesy to ensure prompt reporting the interpreting radiologist is fully responsible for the content of the report. ADDENDUM #1 Left PICC line tip is in the lower SVC. Electronically signed by: Matthias Mitchell MD 08/15/2024 02:26 AM CDT RP End of Addendum CLINICAL HISTORY: PICC line placement. COMPARISON: None. TECHNIQUE: XR CHEST 1 VIEW 08/15/2024 12:34 AM CDT FINDINGS: Cardiac silhouette is normal in size. Lungs are clear without consolidation, atelectasis, mass or padmini ma. There is no pleural effusion. There is no pneumothorax. There are no acute osseous findings. IMPRESSION: Clear lungs. Electronically signed by: Matthias Mitchell MD 08/15/2024 01:44 AM CDT RP Due to temporary technical issues with the [employer] reporting system, reports are being brigette d by the in-house radiologist without review as a courtesy to ensure prompt reporting the interpreting radiologist is fully responsible for the content of the report. Transcribed Date/Time: 08/15/2024 2:57 AM
[2024-08-15] MEDS: FAMOTIDINE 20 MG/2 ML VIAL IV SCH (01:51)
[2024-08-15] MEDS: VANCOMYCIN 1.25 GM in NA CHLORIDE 0.9% 250 ML IVPB ONE (01:52)
[2024-08-15] MEDS: PIPER TAZO 3.375 GM in NA CHLORIDE 0.9% 100 ML IV SCH (03:19)
[2024-08-15 04:07] LABS: PT Prothrombin Time 18.6 SECONDS (9.4-12.5); Protime INR 1.69
[2024-08-15 04:12] LABS: Hemoglobin 5.3 g/dL (13.6-17.9)
[2024-08-15 07:14] LABS: Anion Gap 15.9 mEq/L (5.0-15.0); Magnesium 1.5 mg/dL (1.6-2.4); Potassium 3.9 mEq/L (3.5-5.1)
[2024-08-15] MEDS: INSULIN REGULAR (HUMAN) 100 UNIT/ML SQ SCH (07:30)
[2024-08-15] MEDS: Magnesium Sulfate 2gm IVPB 2 G/50 ML BAG IV SCH (08:42)
[2024-08-15 08:49] LABS: Hematocrit 22.1 % (39.6-49.0); Hemoglobin 7.1 g/dL (13.6-17.9)
[2024-08-15] MEDS: LACTULOSE 20 GM/30 ML UCUP PO SCH ×2 (08:51→09:40)
[2024-08-15] MEDS: Mupirocin NASAL 2 APPL/1 GM TUBE NAS SCH (08:52)
[2024-08-15] MEDS ORDERED: FAMOTIDINE 20 MG/2 ML VIAL IV SCH (09:00)
[2024-08-15] MEDS: EPINEPHRINE 1 MG/ML VIAL ONE (10:00)
[2024-08-15] MEDS: LIDOCAINE 1% MPF 2 ML AMPULE ONE (10:20)
[2024-08-15] MEDS: propofoL 200 MG/20 ML VIAL IV ONE (10:20)
--- NOTE | 2024-08-15 10:53 | P.PN ---
Subjective Date of Service: 08/15/24 Chief Complaint: anemia Patient denies any abdominal pain. He is awake and alert and interactive. Nursing staff report patient had melena stool this morning. Patient denies any nausea or vomiting. Physical Examination - Vital Signs Temperature: 96.5 F Blood Pressure: 99/40 Pulse: 77 Respirations: 10 Pulse Ox (%): 100 - Studies Laboratory Data (last 24 hrs) 08/15/24 08/15/24 08/15/24 08:34 03:59 03:20 Hgb 7.1 L D Cancelled Hct 22.1 L Cancelled PT INR Sodium 134 L Potassium 3.9 D BUN 41 H Creatinine 1.76 H Glucose 80 Magnesium 1.5 L 08/15/24 08/15/24 03:20 03:20 Hgb 5.3 L* D Hct 17.0 L PT 18.6 H INR 1.69 Sodium Potassium BUN Creatinine Glucose Magnesium Microbiology Data (last 24 hrs): 08/15/24 04:07 Blood - Blood Anaerobic Blood Culture - Final 08/15/24 04:01 Blood - Blood Anaerobic Blood Culture - Final Assessment And Plan - Plan Physical examination General: Alert and oriented x3, NAD, HEENT: Conjunctiva not pale, anicteric sclera Neck: Supple, no elevated JVD Heart: Heart sounds 1 and 2 normal, regular rhythm, normal rate, 1+ bilateral lower extremity edema Lungs: Clear to auscultation bilaterally, adequate breath sounds bilaterally, no rhonchi or crackles. Abdomen: Soft, nondistended, nontender, normal bowel sounds. Extremities: No tenderness, no deformity Skin: Normal skin turgor, no rash, no nodules or ulcers. Neuro: No focal motor deficit. Normal speech. Psychiatry: Normal mood, no agitation. Assessment and plan Acute blood loss anemia GI bleeding History of TIPS procedure Nash esophagus 2 unit PRBC transfusion ordered Continue octreotide and Protonix drip Monitor H&H GI consult-I spoke to Dr. Allen who is planning EGD today. Transfuse as needed for hemoglobin less than 7. Liver cirrhosis Elevated ammonia level Hypoalbuminemia Anasarca Severe protein calorie malnutrition Continue lactulose Keep n.p.o for now. Aldactone when feeding resumed. GI is following and managing. Hypotension Secondary to liver cirrhosis. Midodrine once feeding is resumed. Chronic kidney disease Likely hepatorenal syndrome Renally dose medications SIRS Elevated lactate Yeast UTI SIRS secondary to decompensated liver failure. Lactic acidosis is secondary to liver failure Continue IV vancomycin and Cefepime Yeast in the urine may be a colonization. Follow urine culture. Insulin-dependent diabetes Fingerstick blood sugars monitoring and insulin sliding scale. Impaired mobility Resume PT once clinically stable. DVT prophylaxis: SCDs Advanced directive: Full code
[2024-08-15] MEDS: PANTOPRAZOLE INJ 80 MG in NA CHLORIDE 0.9% 250 ML IV SCH (11:53)
[2024-08-15] MEDS: OCTREOTIDE 500 MCG in NA CHLORIDE 0.9% 500 ML IV SCH (11:54)
[2024-08-15] MEDS ORDERED: SUCRALFATE 1 GM TABLET PO SCH (13:00)
[2024-08-15] MEDS: SUCRALFATE 1GM/10ML UCUP PO SCH (13:20)
[2024-08-15 14:11] LABS: Hematocrit 26.5 % (39.6-49.0); Hemoglobin 8.8 g/dL (13.6-17.9)
[2024-08-15] MEDS: D10W 125 ML IV PRN (16:13)
[2024-08-15] MEDS: D5 0.9 NS 1,000 ML IV SCH (16:35)
[2024-08-15] MEDS: VANCOMYCIN 1 GM in NA CHLORIDE 0.9% 250 ML IVPB SCH (21:05)
[2024-08-15] MEDS: CEFEPIME 1 GM in NA CHLORIDE 0.9% 100 ML IV SCH (21:06)
[2024-08-16 05:06] LABS: Absolute Basophils 0.1 K/uL (0-0.5); Absolute Eosinophils 0.5 K/uL (0-0.5); Absolute Lymphocytes (CBC) 1.9 K/uL (0.7-4.9); Absolute Monocytes 1.2 K/uL (0.1-1.3); Absolute Neutrophil 13.9 K/uL (1.8-8.0); Basophils % 0.7 % (0-1.3); Eosinophils % 2.8 % (0-4.4); Hematocrit 25.7 % (39.6-49.0); Hemoglobin 8.2 g/dL (13.6-17.9); Lymphocytes % 10.9 % (15.3-44.8); MCH 28.3 pg (27.0-35.0); MCHC 31.7 g/dL (32.0-36.0); MCV 89.2 fL (80-100); MPV 7.2 fL (7.6-11.3); Monocytes % 6.9 % (3.3-12.3); Neutrophils % 78.7 % (41.7-73.7); Nucleated Red Blood Cells % 0.1 % (0-0); Platelets 133 thou/uL (152-406); RBC Red Blood Cell Count 2.88 M/uL (4.33-5.43); Red Cell Distribution Width 17.8 % (12.1-15.2)
[2024-08-16 05:22] LABS: Anion Gap 8.8 mEq/L (5.0-15.0); Magnesium 3.4 mg/dL (1.6-2.4); Phosphorus 2.6 mg/dL (2.5-4.9); Potassium 3.8 mEq/L (3.5-5.1)
[2024-08-16] MEDS: KCL 20 MEQ/100 mL IVPB 20 MEQ/100 ML BAG IV SCH (06:31)
--- NOTE | 2024-08-16 10:58 | P.PN ---
Subjective Date of Service: 08/16/24 Chief Complaint: anemia Patient is awake and alert and communicating. No coffee-ground emesis. Patient denies any abdominal pain. No reported melena or nausea or vomiting Status post EGD 08/15. Physical Examination - Vital Signs Temperature: 97.2 F Blood Pressure: 103/51 Pulse: 79 Respirations: 16 Pulse Ox (%): 100 - Studies Laboratory Data (last 24 hrs) 08/16/24 08/16/24 08/16/24 Unknown 05:00 05:00 WBC 17.70 H Hgb 8.2 L Hct 25.7 L Plt Count 133 L Sodium Cancelled 138 Potassium Cancelled 3.8 BUN Cancelled 37 H Creatinine Cancelled 1.80 H Glucose Cancelled 154 H Phosphorus 2.6 Magnesium Cancelled 3.4 H 08/15/24 08/15/24 13:57 13:57 WBC Hgb 8.8 L D Hct 26.5 L Plt Count Sodium Potassium BUN Creatinine Glucose Phosphorus Magnesium 3.6 H Microbiology Data (last 24 hrs): 08/15/24 04:07 Blood - Blood Anaerobic Blood Culture - Final 08/15/24 04:01 Blood - Blood Anaerobic Blood Culture - Final Assessment And Plan - Plan Physical examination General: Alert and oriented x3, NAD, HEENT: Conjunctiva not pale, anicteric sclera Neck: No elevated JVD Heart: Heart sounds 1 and 2 normal, regular rhythm, normal rate, 1+ bilateral lower extremity edema Lungs: Clear to auscultation bilaterally, adequate breath sounds bilaterally, no rhonchi or crackles. Abdomen: Soft, nondistended, nontender, normal bowel sounds. Extremities: No tenderness, no deformity Skin: Normal skin turgor, no rash, no nodules or ulcers. Neuro: No focal motor deficit. Normal speech. Psychiatry: Normal mood, no agitation. Assessment and plan Acute blood loss anemia GI bleeding History of TIPS procedure Nash esophagus Status post 2 unit PRBC transfusion. On octreotide and Protonix drip GI Dr. Allen input appreciated. EGD revealed ulcers and gastritis. No reports of bleeding esophageal varices Continue to monitor H&H Transfuse as needed for hemoglobin less than 7. Liver cirrhosis Elevated ammonia level Hypoalbuminemia Anasarca Severe protein calorie malnutrition Continue lactulose Start full liquid diet per GI recommendation Resume Aldactone. GI is following. Hypotension Secondary to liver cirrhosis. Midodrine as needed Chronic kidney disease Likely hepatorenal syndrome Renally dose medications Nephrology consulted SIRS Elevated lactate Yeast UTI SIRS secondary to decompensated liver failure. Lactic acidosis is secondary to liver failure Continue IV vancomycin and Cefepime Yeast in the urine may be a colonization. Urine culture: Mixed arben. Insulin-dependent diabetes Hypoglycemia Hypoglycemia today noted. Fingerstick blood sugars monitoring and insulin sliding scale. Hypoglycemia protocol. Impaired mobility PT. DVT prophylaxis: SCDs Advanced directive: Full code
[2024-08-16] MEDS ORDERED: MIDODRINE HCL 5 MG TABLET PO PRN (11:05)
[2024-08-16] MEDS: D5 0.9 NS 1,000 ML IV SCH (11:06)
[2024-08-16] MEDS: ALBUMIN HUMAN 25% 100 ML IV SCH (11:06)
[2024-08-16] MEDS: SOTALOL HCL 80 MG TAB PO SCH (11:37)
[2024-08-16 12:07] LABS: Specific Gravity 1.016 (1.005-1.030); Sqamous Epithelial None Seen /HPF (None Seen); Urine Bacteria <20 /HPF (<20); Urine Bilirubin NEGATIVE (Negative); Urine Blood 2+ (Negative); Urine Clarity Clear (Clear); Urine Color Light-Yellow (Yellow); Urine Culture Reflex Order NOT NEEDED; Urine Glucose NEGATIVE (Negative); Urine Ketones NEGATIVE (Negative); Urine Microscopic Reflex YN ORDER UMIC; Urine Mucus Slight /HPF (None Seen); Urine Nitrite NEGATIVE (Negative); Urine Protein NEGATIVE (Negative); Urine RBC 21-50 /HPF (None Seen); Urine Urobilinogen Normal (Normal); Urine WBC Clump Rare /HPF (None Seen); Urine Yeast (Budding) Trace /HPF (None Seen)
--- NOTE | 2024-08-16 12:33 | P.CNS ---
Date of Consult: 08/16/24 Chief Complaint: anemia History of Present Illness: Patient with PMH of liver cirrhosis, barrettes esophagus, admitted with generalized weakness, found to have GI bleed due to peptic ulcers, getting PPI infusion and blood transfusion, cardiology was consulted for runs of NSVT, patient denies chest pain, no SOB, no SANTIAGO, no syncope. Allergies bumetanide Allergy (Verified 08/14/24 13:08) Nausea/Vomiting ciprofloxacin Allergy (Verified 08/14/24 13:08) Nausea/Vomiting dexlansoprazole [From Dexilant] Allergy (Verified 08/14/24 13:08) Nausea/Vomiting doxycycline Allergy (Verified 08/14/24 12:59) Nausea/Vomiting empagliflozin [From Jardiance] Allergy (Verified 08/14/24 13:08) Nausea/Vomiting eplerenone Allergy (Verified 08/14/24 13:08) Nausea/Vomiting furosemide Allergy (Verified 08/14/24 13:08) Nausea/Vomiting losartan Allergy (Verified 08/14/24 13:08) Nausea/Vomiting metformin Allergy (Verified 08/14/24 13:08) Nausea/Vomiting metronidazole Allergy (Verified 08/14/24 13:08) Nausea/Vomiting midodrine Allergy (Verified 08/14/24 13:08) Nausea/Vomiting omeprazole Allergy (Verified 08/14/24 13:08) Nausea/Vomiting pantoprazole Allergy (Verified 08/14/24 13:00) Nausea/Vomiting propranolol Allergy (Verified 08/14/24 13:08) Nausea/Vomiting rifaximin [From Xifaxan] Allergy (Verified 08/14/24 13:08) Nausea/Vomiting spironolactone Allergy (Verified 08/14/24 13:08) Nausea/Vomiting zinc Allergy (Verified 08/14/24 13:08) Nausea/Vomiting Home medications list reviewed: Yes Home Medications: Amiloride HCl 5 mg PO [id number] 08/14/24 Calcium Carbonate [Tums] 400 mg PO DAILY PRN 08/14/24 Insulin Glargine,Hum.rec.anlog [Lantus Solostar] 18 unit SQ DAILY 08/14/24 Lactulose 45 gm PO TID 08/14/24 Naproxen Sodium [Aleve] 220 mg PO Q6H PRN 08/14/24 Potassium Phosphate,Monobasic [K-Phos Original] 500 mg PO BID 08/14/24 Torsemide [Demadex*] 40 mg PO BID 08/14/24 - Past Medical/Surgical History Diabetic: Yes -: Liver Cirrhosis -: HTN -: DM 2 -: Liver Cancer -: Basal cell carcinoma -: Right ear removal basal cell carcinoma - Social History Smoking Status: Current every day smoker Alcohol use: No CD- Drugs: No Caffeine use: No Place of Residence: Home Review of Systems 10-point ROS is otherwise unremarkable Physical Examination Temp Pulse Resp BP Pulse Ox 97.2 F 79 16 103/51 L 100 08/16/24 11:05 08/16/24 11:05 08/16/24 11:05 08/16/24 11:05 08/16/24 11:05 General: Alert, In no apparent distress HEENT: Atraumatic, PERRLA, Mucous membr. moist/pink, EOMI, Sclerae nonicteric Neck: Supple, 2+ carotid pulse no bruit, No LAD, Without JVD or thyroid abnormality Respiratory: Clear to auscultation bilaterally, Normal air movement Cardiovascular: Regular rate/rhythm, Normal S1 S2 Gastrointestinal: Normal bowel sounds, No tenderness Musculoskeletal: No tenderness Integumentary: No rashes Neurological: Normal gait, Normal speech, Normal tone, Normal affect Lymphatics: No axilla or inguinal lymphadenopathy Laboratory Data (last 24 hrs) 08/16/24 08/16/24 08/16/24 Unknown 05:00 05:00 WBC 17.70 H Hgb 8.2 L Hct 25.7 L Plt Count 133 L Sodium Cancelled 138 Potassium Cancelled 3.8 BUN Cancelled 37 H Creatinine Cancelled 1.80 H Glucose Cancelled 154 H Phosphorus 2.6 Magnesium Cancelled 3.4 H 08/15/24 08/15/24 13:57 13:57 WBC Hgb 8.8 L D Hct 26.5 L Plt Count Sodium Potassium BUN Creatinine Glucose Phosphorus Magnesium 3.6 H - Problems (1) NSVT (nonsustained ventricular tachycardia) Current Visit: Yes Status: Acute Plan: most likely ischemic in nature, typically patient will need coronary angiogram but due to advanced liver disease and active GI bleed, he will be too high risk for coronary angiogram and intervention (explained that to family in details) start patient on Sotalol 80 mg po BID. can give Amiodarone 150 mg IV x 1 if NSVT become more frequent get echo correct electrolytes
--- NOTE | 2024-08-16 13:23 | ECHO ---
HEIGHT: 5 ft 10 in WEIGHT: 155 lb 3.2 oz DATE OF STUDY: 08/16/[address]: Abiodun Vick MD 2-DIMENSIONAL: YES M.MODE: YES DOPPLER: YES COLOR FLOW: YES TDS: YES PORTABLE: YES DEFINITY: BUBBLE STUDY: DIAGNOSIS: EJECTION FRACTION EVALUATION CARDIAC HISTORY: CATHERIZATION: NO SURGERY: NO PROSTHETIC VALVE: NO PACEMAKER: NO MEASUREMENTS (cm) DIASTOLIC (NORMALS) SYSTOLIC (NORMALS) IVSd 1.1 (0.6-1.2) LA Diam 2.9 (1.9-4.0) LVEF 60-65% LVIDd 4.2 (3.5-5.7) LVIDs 2.9 (2.0-3.5) %FS 31% LVPWd 1.2 (0.6-1.2) Ao Diam 2.7 (2.0-3.7) 2 DIMENSIONAL ASSESSMENT: RIGHT ATRIUM: NORMAL LEFT ATRIUM: NORMAL RIGHT VENTRICLE: NORMAL LEFT VENTRICLE: NORMAL TRICUSPID VALVE: MILD TRICUSPID REGURGITATION MITRAL VALVE: MILD MITRAL REGURGITATION PULMONIC VALVE: NORMAL AORTIC VALVE: MILD AORTIC STENOSIS PERICARDIAL EFFUSION: NONE AORTIC ROOT: NORMAL LEFT VENTRICULAR WALL MOTION: NORMAL DOPPLER/COLOR FLOW: NORMAL COMMENTS: 1. NORMAL LEFT VENTRICULAR SYSTOLIC FUNCTION, EJECTION FRACTION 60-65%, NORMAL WALL MOTION TECHNOLOGIST: ANNA PADRON
--- NOTE | 2024-08-16 14:34 | CON ---
Date of Consultation: 08/16/2024 Reason For Consultation: Elevated BUN and creatinine, fluid management, anasarca. History Of Present Illness: This is a pleasant 74-year-old gentleman, well known to me from the office and [facility] with significant past medical history of hypertension, cirrhosis status post TIPS back in October 2021, Nash esophagitis, diabetes since 07/2019, not on any treatment controlled with diet, chronic kidney disease secondary to hepatorenal syndrome, normal-sized kidney with minimal protein urea, baseline creatinine 1.3, GFR of 55. As of December 2023, anasarca secondary to low albumin and cirrhosis, maintained on compression wraps, chronic hypokalemia, the patient recently admitted to the hospital at [facility] and recovered. He was discharged to rehab. The patient came from the rehab, found to have low blood pressure, low hemoglobin, elevation in BUN and creatinine. For that reason, the patient was transferred to ICU, received 2 units of blood transfusion. The patient found to have anasarca and elevation in BUN, creatinine. For that reason, we have been consulted. The patient denied taking any nonsteroid. No IV contrast. Past Medical History: Includes: 1. Diabetes, controlled with diet. 2. Nash esophagitis. 3. Alcohol liver cirrhosis, status post TIPS back in 2020. 4. 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 Allergies: ALLERGY TO: 1. BUMEX. 2. DOXYCYCLINE. 3. JARDIANCE. 4. LASIX. 5. LOSARTAN. 6. PROPRANOLOL. 7. MIDODRINE. 8. SPIRONOLACTONE. Home Medications: Include Amiloride, calcium carbonate, KCl and apparently he has been taking naproxen. Social History: Active alcohol. Denied drugs abuse. Denies smoking. Family History: Positive for hypertension. Review of Systems: Head and Neck: No red eye. No ear pain. GI: Has increased abdominal girth. : No polyuria. Has scrotal swelling. PROFESSOR OF PSYCHIATRY: Not applicable. Respiratory: No shortness of breath. Cardiovascular: No chest pain. Has leg swelling. Endocrine: No polydipsia. Skin: Has bruises. Musculoskeletal: Generalized fatigue. Neuro: Has weakness. Physical Examination: Vital Signs: When I saw the patient, the patient blood pressure 124/60, pulse of 88. Chest: Clear to auscultation. Heart: S1, S2. Systolic murmur. Abdomen: Soft, nontender. Could not appreciate any ascites. Extremities: +1 edema. Neuro: Alert. No focality. Laboratory Data: On the , hemoglobin 5.3. Creatinine 1.7. GFR of 41, potassium 3.9. Today lab data; sodium 138, potassium 3.8, bicarb 21. BUN 37, creatinine 1.8, GFR of 40, calcium 7.2, phosphorus 2.6, magnesium 3.4. Chest x- ray, no congestion. Current Medications: The patient on is IV fluid at rate of 100, Protonix, vancomycin, lactulose, pantoprazole, Carafate, octreotide. Assessment And Plan: 1. Acute kidney injury multifactorial secondary to hepatorenal syndrome superimposed with nonsteroid use. Peripheral edema without any respiratory symptoms, looked to me still slightly on the dry side. Decrease IV fluid to 75, and I am going to add albumin for fluid expansion as hepatorenal treatment. Continue octreotide. Continue PPI and we will follow up. We will consider resuming the diuresis after 24 or 48 hours. 2. I am going to send for basic workup to rule out obstruction and we will monitor. 3. Anasarca mostly secondary to renal failure/hepatorenal and low albumin. I am going to use fluid expansion. The patient does not have any respiratory symptoms. I am going to accept the edema for the time being. I will repeat PC ratio and TSH and we will follow up. 4. Hypokalemia. We will supplement p.r.n., then we will resume amiloride later on. 5. Cirrhosis with gastrointestinal bleed with portal hypertension. Continue current treatment. Follow up with GI. 6. Diabetes as by primary. Thank you Dr. Vick for allowing us to participate in the care of the patient. Time spent examining the patient, [id number], reviewing data, lab and radiology, placing order, discussing the case with the patient and by bedside, discussing the case with the ICU team and hospitalist more than 75 minutes. JV Voice ID: [id number] Report ID: [id number] WALKER
[2024-08-16] MEDS ORDERED: SOTALOL HCL 80 MG TAB PO SCH (18:00)
[2024-08-17 06:22] LABS: Percent Reticulocyte Count 3.12 % (0.4-2.05); RBC Red Blood Cell Count 2.5 M/uL (4.33-5.43)
[2024-08-17 06:29] LABS: Absolute Basophils 0.1 K/uL (0-0.5); Absolute Eosinophils 0.6 K/uL (0-0.5); Absolute Lymphocytes (CBC) 1.6 K/uL (0.7-4.9); Absolute Monocytes 1.5 K/uL (0.1-1.3); Absolute Neutrophil 9.4 K/uL (1.8-8.0); Basophils % 0.8 % (0-1.3); Eosinophils % 4.5 % (0-4.4); Hematocrit 22.3 % (39.6-49.0); Hemoglobin 7.1 g/dL (13.6-17.9); Lymphocytes % 12.4 % (15.3-44.8); MCH 28.5 pg (27.0-35.0); MCHC 31.7 g/dL (32.0-36.0); MCV 89.9 fL (80-100); MPV 7.5 fL (7.6-11.3); Monocytes % 11.2 % (3.3-12.3); Neutrophils % 71.1 % (41.7-73.7); Nucleated Red Blood Cells % 0.1 % (0-0); Platelets 92 thou/uL (152-406); RBC Red Blood Cell Count 2.48 M/uL (4.33-5.43); Red Cell Distribution Width 18.3 % (12.1-15.2)
[2024-08-17 06:50] LABS: Albumin 1.9 g/dL (3.4-5.0); Anion Gap 8.4 mEq/L (5.0-15.0); Ferritin 96.3 ng/mL (26-388); Magnesium 2.9 mg/dL (1.6-2.4); Phosphorus 1.5 mg/dL (2.5-4.9); Potassium 3.4 mEq/L (3.5-5.1); Thyroid Stimulating Hormone 0.221 uIU/mL (0.358-3.740); Uric Acid 6.5 mg/dL (3.5-7.2)
[2024-08-17] MEDS: KCL 20 MEQ/100 mL IVPB 20 MEQ/100 ML BAG IV SCH (09:00)
--- NOTE | 2024-08-17 10:30 | RAD REPORT ---
EXAMINATION: ONE VIEW CHEST XR CLINICAL INDICATION: PICC placement TECHNIQUE: Frontal chest projection is submitted. Examination is limited by patient positioning and t echnique. COMPARISON: 08/15/2024 FINDINGS: Left-sided PICC line has tip in the right atrium. Approximate 2 cc of retraction is suggested for opt imum placement. Mild interstitial prominence bilaterally is nonspecific but may represent mild interstitial pulmonary edema. The heart is upper limit of normal in size.
--- NOTE | 2024-08-17 12:13 | RAD REPORT ---
EXAMINATION: ONE VIEW CHEST XR CLINICAL INDICATION: PICC LINE PALCEMENT TECHNIQUE: Frontal chest projection is submitted. Examination is limited by patient positioning and t echnique. COMPARISON: 08/17/2024, 08/15/2024 FINDINGS: Left PICC line has its tip in the SVC. Mild bilateral interstitial opacities are present, nonspecific . The heart is upper limit normal in size.
--- NOTE | 2024-08-17 12:37 | P.PN ---
Subjective Date of Service: 08/17/24 Chief Complaint: anemia Subjective: Improving (Is doing well no complaints no recent history of GI bleed is slightly low we will continue to monitor) Review of Systems 10-point ROS is otherwise unremarkable Physical Examination - Vital Signs Temperature: 98.6 F Blood Pressure: 96/52 Pulse: 57 Respirations: 18 Pulse Ox (%): 99 - Physical Exam General: In no apparent distress, Oriented x3 Neck: Supple Respiratory: Clear to auscultation bilaterally Cardiovascular: No edema, Regular rate/rhythm, Normal S1 S2 - Studies Laboratory Data (last 24 hrs) 08/17/24 08/17/24 05:00 05:00 WBC 13.20 H Hgb 7.1 L D Hct 22.3 L Plt Count 92 L D Sodium 145 D Potassium 3.4 L BUN 28 H Creatinine 1.46 H Glucose 226 H Uric Acid 6.5 Phosphorus 1.5 L* Magnesium 2.9 H Assessment And Plan - Current Problems (Diagnosis) (1) Alcoholic cirrhosis Current Visit: No Status: Acute Plan: 74 years of age with a history of alcoholic cirrhosis of the liver status post TIPS admitted with GI bleeding is currently very stable continue to monitor hemoglobin history of nonbleeding ulcers as per GI will plan to discontinue statin drip transfer to the floor function improving mild hypokalemia hypophosphatemia signs stable history of nonsustained V. tach on sotalol able to be transferred to the floor replace potassium the somatostatin changed to p.o. medications regular diet Qualifiers: Ascites presence: without ascites Qualified Code(s): K70.30 - Alcoholic cirrhosis of liver without ascites
[2024-08-17] MEDS: POTASSIUM 25 MEQ EFFERV TAB PO SCH (12:44)
[2024-08-17 13:28] LABS: Hematocrit 23.3 % (39.6-49.0); Hemoglobin 7.4 g/dL (13.6-17.9); MCH 28.6 pg (27.0-35.0); MCHC 31.7 g/dL (32.0-36.0); MCV 90.5 fL (80-100); MPV 7.6 fL (7.6-11.3); Platelets 90 thou/uL (152-406); RBC Red Blood Cell Count 2.57 M/uL (4.33-5.43); Red Cell Distribution Width 18.5 % (12.1-15.2)
--- NOTE | 2024-08-17 13:50 | P.PN ---
Subjective Date of Service: 08/17/24 Chief Complaint: anemia Subjective: No new changes, No C/O voiced, Tolerating diet, Ambulating, Improving Review of Systems 10-point ROS is otherwise unremarkable Physical Examination - Vital Signs Temperature: 98.6 F Blood Pressure: 96/52 Pulse: 57 Respirations: 18 Pulse Ox (%): 99 - Physical Exam General: Alert, In no apparent distress HEENT: Atraumatic, PERRLA, EOMI Neck: Supple, JVD not distended Respiratory: Clear to auscultation bilaterally, Normal air movement Cardiovascular: Regular rate/rhythm, Normal S1 S2 Gastrointestinal: Normal bowel sounds, No tenderness Musculoskeletal: No tenderness Integumentary: No rashes Neurological: Normal speech, Normal tone, Normal affect Lymphatics: No axilla or inguinal lymphadenopathy - Studies Laboratory Data (last 24 hrs) 08/17/24 08/17/24 08/17/24 13:11 05:00 05:00 WBC 14.30 H 13.20 H Hgb 7.4 L 7.1 L D Hct 23.3 L 22.3 L Plt Count 90 L 92 L D Sodium 145 D Potassium 3.4 L BUN 28 H Creatinine 1.46 H Glucose 226 H Uric Acid 6.5 Phosphorus 1.5 L* Magnesium 2.9 H Medications List Reviewed: Yes Assessment And Plan - Current Problems (Diagnosis) (1) NSVT (nonsustained ventricular tachycardia) Current Visit: Yes Status: Acute Plan: most likely ischemic in nature, typically patient will need coronary angiogram but due to advanced liver disease and active GI bleed, he will be too high risk for coronary angiogram and intervention (explained that to family in details) No more VT overnight continue Sotalol 80 mg po BID. can give Amiodarone 150 mg IV x 1 if NSVT become more frequent Echo shows normal EF. correct electrolytes
[2024-08-17] MEDS: PANTOPRAZOLE 40MG TABLET PO SCH (16:52)
[2024-08-17] MEDS: POTASSIUM PHOS IN 0.9 % NACL 15 MMOL/250 ML BAG IV SCH (16:53)
[2024-08-17 20:55] LABS: Urine Protein/Creatinine Ratio 0.28 ratio (<0.15)
[2024-08-18 01:32] VITALS: BMI 24.0
--- NOTE | 2024-08-18 02:08 | PN ---
Date of Progress Note: 08/17/2024 Chief Complaint: Fluid overload, anasarca, elevated BUN and creatinine. Subjective: The patient is admitted to ICU. He is a 74-year-old man with history of cirrhosis, stat us post TIPS, October 2021; Nash esophagus; diabetes mellitus, diagnosed July 2019, currentl y diet controlled; chronic kidney disease secondary to hepatorenal syndrome. The patient previously had workup done and it showed slight proteinuria. Baseline creatinine level 1.3. The patient was ad mitted previously for anasarca. He has albumin level secondary to liver cirrhosis, chronic hypokalem ia. The patient is in ICU, received 2 units of packed red blood cells transfusion for severe anemia. The patient was found to have elevated BUN and creatinine, anasarca and Nephrology consultation was requested for fluid overload and hepatorenal syndrome. Past Medical History: Diabetes mellitus, diet controlled; Nash esophagus; alcoholic liver cirrhos is, TIPS, 2020; chronic kidney disease stage 3A secondary to hepatorenal syndrome; diabetic kidney di sease; benign nephrosclerosis, baseline creatinine level 1.3. Review of Systems: The patient is lethargic, cannot provide review of systems. Physical Examination: Lungs: Clear to auscultation bilaterally. Heart: S1, S2. Abdomen: Soft, benign. Extremities: Edema, anasarca. Laboratory Work: Creatinine 1.7. Hemoglobin 5.3. Bicarbonate 21, BUN 37. Calcium 7.2, phosphorus 1.7, magnesium 2.9. Impression And Plan: 1.Acute kidney injury, multifactorial, secondary to hepatorenal syndrome superimposed with nonsteroi soto anti-inflammatory medication effect due to renal hypoperfusion. Renal function has deteriorated. The patient likely has benign nephrosclerosis, hepatorenal syndrome in the setting of alcoholic penny er disease with cirrhosis. The patient primarily received IV fluids and albumin. The patient is on octreotide for hepatorenal syndrome and on PPI for questionable gastrointestinal bleeding. The patie nt is to have blood transfusion according to hemoglobin level. 2.Anasarca secondary to renal failure, hepatorenal syndrome with hypoalbuminemia. Continue to monit or urine output. Continue Lasix. 3.Hypokalemia. Supplementation as needed. 4.Cirrhosis with gastrointestinal bleeding and portal hypertension. Continue PPI. Gastroenterology consultation was requested. 5.Diabetes, per Primary team. EB/MODL Voice ID: [id number] Report ID: [id number]
[2024-08-18 06:13] LABS: Hemoglobin 7.9 g/dL (13.6-17.9); MCH 28.2 pg (27.0-35.0); MCHC 31.5 g/dL (32.0-36.0); MCV 89.7 fL (80-100); MPV 7.8 fL (7.6-11.3); Platelets 90 thou/uL (152-406); RBC Red Blood Cell Count 2.78 M/uL (4.33-5.43); Red Cell Distribution Width 18.8 % (12.1-15.2)
[2024-08-18 06:21] LABS: Albumin 2.8 g/dL (3.4-5.0); Albumin/Globulin Ratio 1.5 (1.1-1.8); Anion Gap 8.1 mEq/L (5.0-15.0); Bilirubin Total 1.5 mg/dL (0.2-1.0); Globulin 1.9 g/dL (2.3-3.5); Potassium 4.1 mEq/L (3.5-5.1); Protein, Total 4.7 g/dL (6.4-8.2)
[2024-08-18 06:25] LABS: Albumin 2.9 g/dL (3.4-5.0); Anion Gap 8.1 mEq/L (5.0-15.0); Magnesium 3.3 mg/dL (1.6-2.4); Potassium 4.1 mEq/L (3.5-5.1)
[2024-08-18] MEDS: SPIRONOLACTONE 25 MG TABLET PO SCH (08:47)
--- NOTE | 2024-08-18 10:07 | P.PN ---
Subjective Date of Service: 08/18/24 Chief Complaint: Cirrhosis of the liver with gross anasarca Subjective: Improving (Is improving doing well no new complaints he is very edematous with scrotal edema lower extremity edema complaint) Review of Systems 10-point ROS is otherwise unremarkable Physical Examination - Vital Signs Temperature: 97.8 F Blood Pressure: 103/45 Pulse: 57 Respirations: 12 Pulse Ox (%): 100 - Physical Exam General: Alert, Oriented x3, Cooperative Respiratory: Clear to auscultation bilaterally Cardiovascular: Edema (Difficult lower extremity abdominal and scrotal edema) Gastrointestinal: Normal bowel sounds, Soft and benign - Studies Laboratory Data (last 24 hrs) 08/18/24 08/18/24 08/18/24 05:36 05:36 05:36 WBC 19.90 H Hgb 7.9 L Hct 25.0 L Plt Count 90 L Sodium 146 H 146 H Potassium 4.1 4.1 D BUN 28 H 28 H Creatinine 1.48 H 1.46 H Glucose 113 H 115 H Phosphorus 2.0 L Magnesium 3.3 H Total Bilirubin 1.5 H AST 35 ALT 39 Alkaline Phosphatase 118 H 08/17/24 13:11 WBC 14.30 H Hgb 7.4 L Hct 23.3 L Plt Count 90 L Sodium Potassium BUN Creatinine Glucose Phosphorus Magnesium Total Bilirubin AST ALT Alkaline Phosphatase Medications List Reviewed: Yes Assessment And Plan - Current Problems (Diagnosis) (1) Alcoholic cirrhosis Current Visit: No Status: Acute Plan: Patient has cirrhosis of the liver he is currently very stable labs reviewed mild hypernatremia generalized anasarca will increase spironolactone add back his torsemide patient's white count is mildly elevated continue to monitor mild renal insufficiency/able to be transferred to the floor patient's hemoglobin is improving Qualifiers: Ascites presence: without ascites Qualified Code(s): K70.30 - Alcoholic cirrhosis of liver without ascites
[2024-08-18] MEDS: TORSEMIDE 20 MG TAB PO SCH (11:42)
--- NOTE | 2024-08-18 13:17 | P.PN ---
Subjective Date of Service: 08/18/24 Chief Complaint: Cirrhosis of the liver with gross anasarca Subjective: No new changes Physical Examination - Vital Signs Temperature: 97.8 F Blood Pressure: 105/54 Pulse: 53 Respirations: 24 Pulse Ox (%): 100 - Physical Exam General: Other (chronically ill-appearing) HEENT: Atraumatic, Normocephalic Neck: Supple, JVD not distended Respiratory: Other (symmetric chest expansion) Cardiovascular: No rubs, No murmurs Gastrointestinal: Soft and benign, No guarding Musculoskeletal: No clubbing Integumentary: No warmth Neurological: Normal tone Urinary: Other (no bladder distention) External genitalia: Deferred Rectal: Deferred - Studies Laboratory Data (last 24 hrs) 08/18/24 08/18/24 08/18/24 05:36 05:36 05:36 WBC 19.90 H Hgb 7.9 L Hct 25.0 L Plt Count 90 L Sodium 146 H 146 H Potassium 4.1 4.1 D BUN 28 H 28 H Creatinine 1.48 H 1.46 H Glucose 113 H 115 H Phosphorus 2.0 L Magnesium 3.3 H Total Bilirubin 1.5 H AST 35 ALT 39 Alkaline Phosphatase 118 H 08/17/24 13:11 WBC 14.30 H Hgb 7.4 L Hct 23.3 L Plt Count 90 L Sodium Potassium BUN Creatinine Glucose Phosphorus Magnesium Total Bilirubin AST ALT Alkaline Phosphatase Medications List Reviewed: Yes Assessment And Plan - Plan 1. Acute kidney injury, multifactorial, secondary to hepatorenal syndrome superimposed with nonsteroidal anti-inflammatory medication effect due to renal hypoperfusion. SCr sl. decreased / plateaued at 1.5. Continue Argueta catheter. He received IV fluids and albumin. The patient is on octreotide for hepatorenal syndrome and on PPI for questionable gastrointestinal bleeding ppx. 2. Anasarca secondary to renal failure, hepatorenal syndrome with hypoalbuminemia. Continue to monitor urine output. TTE on 08/16/2024 unremarkable with LVEF normal at 60-65%. Continue Torsemide. Follow-up random urine chemistry for further diuretic dose titration. 3. Hypokalemia. KCl repletion prn. 4. Liver cirrhosis with gastrointestinal bleeding and portal hypertension. Continue PPI. Cont Midodrine po tid. 5. DM2. Mngt per Primary team. 6. Hypernatremia. Serum sodium 146. Correction via IV dextrose water. 7. Low serum bicarbonate. Follow-up ABG. 8. Hypophosphatemia. Phos IV repletion today. 9. Hypermagnesemia. Monitor.
[2024-08-18] MEDS: SODIUM PHOSPHATE 15 MM in NA CHLORIDE 0.9% 250 ML IV ONE (14:30)
[2024-08-18 16:20] LABS: Blood Gas Oxyhemoglobin 95.8 % (94-97); Blood O2 Saturation 98.2 % (92-98.5)
[2024-08-18 16:21] LABS: Arterial Blood Carboxyhemoglob 1.5 % (0-1.5)
[2024-08-18] MEDS ORDERED: SPIRONOLACTONE 25 MG TABLET PO SCH (21:00)
[2024-08-19 06:22] LABS: Hematocrit 25.1 % (39.6-49.0); MCH 28.8 pg (27.0-35.0); MCHC 31.8 g/dL (32.0-36.0); MCV 90.5 fL (80-100); MPV 7.9 fL (7.6-11.3); Platelets 92 thou/uL (152-406); RBC Red Blood Cell Count 2.77 M/uL (4.33-5.43); Red Cell Distribution Width 19.2 % (12.1-15.2)
[2024-08-19 06:50] LABS: Albumin 2.5 g/dL (3.4-5.0); Albumin 2.6 g/dL (3.4-5.0); Albumin/Globulin Ratio 1.4 (1.1-1.8); Bilirubin Total 1.2 mg/dL (0.2-1.0); Globulin 1.9 g/dL (2.3-3.5); Magnesium 2.8 mg/dL (1.6-2.4); Phosphorus 2.9 mg/dL (2.5-4.9); Protein, Total 4.5 g/dL (6.4-8.2)
[2024-08-19] MEDS: SPIRONOLACTONE 25 MG TABLET PO SCH ×2 (09:00→10:59)
[2024-08-19] MEDS: ARFORMOTEROL TARTRATE 15 MCG/2 ML VIAL.NEB NEB SCH (09:17)
--- NOTE | 2024-08-19 09:17 | P.PN ---
Subjective Date of Service: 08/19/24 Chief Complaint: Cirrhosis of the liver with gross anasarca Subjective: Improving (Patient is improving complaining of wheezing) Review of Systems General: Weakness Respiratory: Shortness of Breath Cardiovascular: Edema Physical Examination - Vital Signs Temperature: 97.8 F Blood Pressure: 105/54 Pulse: 53 Respirations: 24 Pulse Ox (%): 100 - Physical Exam General: Alert, Oriented x3 Respiratory: Rhonchi/gurgles Cardiovascular: Edema Gastrointestinal: Normal bowel sounds, Soft and benign - Studies Laboratory Data (last 24 hrs) 08/19/24 08/19/24 08/19/24 06:06 06:06 06:06 WBC 19.80 H Hgb 8.0 L Hct 25.1 L Plt Count 92 L Sodium 146 H 147 H Potassium 4.0 4.0 BUN 31 H 33 H Creatinine 1.69 H 1.74 H Glucose 111 H 113 H Phosphorus 2.9 Magnesium 2.8 H Total Bilirubin 1.2 H AST 30 ALT 37 Alkaline Phosphatase 122 H Medications List Reviewed: Yes Assessment And Plan - Current Problems (Diagnosis) (1) Alcoholic cirrhosis Current Visit: No Status: Acute Plan: Has alcoholic cirrhosis with significant anasarca abnormal renal function see Argueta catheter physical therapy globin is now 8 improving vital signs stable labs reviewed complaining of wheezing presumed history of obstructive airways disease add bronchodilators patient's white count is elevated as the patient has a persistently elevated white count check urinalysis chest x-ray serum procalcitonin level patient was started on sotalol due to nonsustained VT Qualifiers: Ascites presence: without ascites Qualified Code(s): K70.30 - Alcoholic cirrhosis of liver without ascites
--- NOTE | 2024-08-19 11:24 | RAD REPORT ---
Procedure: Chest Single View HISTORY: Chest pain COMPARISON: August 17, 2024 FINDINGS: Mild right lung opacities. Left lung appears clear of acute infiltrate. Heart is normal size No significant pleural effusion noted. IMPRESSION: Mild right lung opacities may represent mild pneumonia
[2024-08-19 12:17] LABS: Sqamous Epithelial None Seen /HPF (None Seen); Transitional Epithelial <5 /HPF (None Seen); Urine Bacteria <20 /HPF (<20); Urine Bilirubin NEGATIVE (Negative); Urine Blood 2+ (Negative); Urine Clarity Clear (Clear); Urine Color Light-Yellow (Yellow); Urine Culture Reflex Order NOT NEEDED; Urine Glucose NEGATIVE (Negative); Urine Ketones NEGATIVE (Negative); Urine Microscopic Reflex YN ORDER UMIC; Urine Mucus Slight /HPF (None Seen); Urine Nitrite NEGATIVE (Negative); Urine Protein NEGATIVE (Negative); Urine Urobilinogen Normal (Normal); Urine pH 6.5 (5.0-7.0)
[2024-08-19] MEDS: CEFTRIAXONE 1,000 MG in NA CHLORIDE 0.9% 50 ML IVPB SCH (14:44)
--- NOTE | 2024-08-19 16:33 | P.PN ---
Subjective Date of Service: 08/19/24 Chief Complaint: Cirrhosis of the liver with gross anasarca Subjective: Other (Bedbound) Physical Examination - Vital Signs Temperature: 97.1 F Blood Pressure: 109/41 Pulse: 63 Respirations: 16 Pulse Ox (%): 97 - Physical Exam General: Other (chronically ill appearing) HEENT: Atraumatic, Normocephalic Neck: Supple Respiratory: Other (Symmetric chest expansion) Cardiovascular: No rubs, No murmurs Gastrointestinal: Soft and benign, No guarding Musculoskeletal: No clubbing Integumentary: No warmth Neurological: Normal tone Urinary: Other (no bladder distention) External genitalia: Deferred Rectal: Deferred - Studies Laboratory Data (last 24 hrs) 08/19/24 08/19/24 08/19/24 06:06 06:06 06:06 WBC 19.80 H Hgb 8.0 L Hct 25.1 L Plt Count 92 L Sodium 146 H 147 H Potassium 4.0 4.0 BUN 31 H 33 H Creatinine 1.69 H 1.74 H Glucose 111 H 113 H Phosphorus 2.9 Magnesium 2.8 H Total Bilirubin 1.2 H AST 30 ALT 37 Alkaline Phosphatase 122 H Medications List Reviewed: Yes Assessment And Plan - Plan 1. Acute kidney injury, multifactorial, secondary to hepatorenal syndrome superimposed with nonsteroidal anti-inflammatory medication effect due to renal hypoperfusion. SCr sl. decreased to / plateaued at 1.5-1.6. Continue Argueta catheter. He received IV fluids and albumin. The patient is on octreotide for hepatorenal syndrome and on PPI for questionable gastrointestinal bleeding ppx. 2. Anasarca secondary to renal failure, hepatorenal syndrome with hypoalbuminemia. Continue to monitor urine output. TTE on 08/16/2024 unremarkable with LVEF normal at 60-65%. Urine chemistry showed adequate natriuresis. Continue torsemide same dose. 3. Hypokalemia. KCl repletion prn. 4. Liver cirrhosis with gastrointestinal bleeding and portal hypertension. Continue PPI. Cont Midodrine po tid. 5. DM2. Mngt per Primary team. 6. Hypernatremia. Serum sodium 146. Correction via IV dextrose water. Encourage liberal by mouth fluid intake. 7. Chronic respiratory alkalosis plus magma. pH normal. No indication for bicarb therapy. 8. Hypophosphatemia. Phos IV repletion today. 9. Hypermagnesemia. Monitor.
[2024-08-20 05:07] LABS: Hematocrit 26.1 % (39.6-49.0); Hemoglobin 8.1 g/dL (13.6-17.9); MCH 28.5 pg (27.0-35.0); MCHC 31.1 g/dL (32.0-36.0); MCV 91.7 fL (80-100); MPV 8.3 fL (7.6-11.3); Platelets 81 thou/uL (152-406); RBC Red Blood Cell Count 2.84 M/uL (4.33-5.43); Red Cell Distribution Width 20.6 % (12.1-15.2)
[2024-08-20 05:25] LABS: Albumin 2.4 g/dL (3.4-5.0); Albumin/Globulin Ratio 1.1 (1.1-1.8); Anion Gap 9.9 mEq/L (5.0-15.0); Globulin 2.1 g/dL (2.3-3.5); Magnesium 2.6 mg/dL (1.6-2.4); Phosphorus 2.1 mg/dL (2.5-4.9); Potassium 3.9 mEq/L (3.5-5.1); Protein, Total 4.5 g/dL (6.4-8.2)
--- NOTE | 2024-08-20 07:35 | RAD REPORT ---
EXAMINATION: ONE VIEW CHEST XR CLINICAL INDICATION: RO pneumonia TECHNIQUE: Frontal chest projection is submitted. Examination is limited by patient positioning and t echnique. COMPARISON: 08/19/2024 FINDINGS: Moderate airspace opacity is seen in the right upper lobe superimposed on diffuse emphysematous lung high. This is most compatible with a pneumonia. Findings appear progressive since the comparison study. The heart is upper limit of normal in size. No displaced fractures identified. IMPRESSION: Right upper lobe pneumonia appears moderately progressive since comparison study.
[2024-08-20] MEDS: SODIUM PHOSPHATE 15 MM in NA CHLORIDE 0.9% 250 ML IV ONE (08:30)
[2024-08-20] MEDS: THIAMINE 200 MG/2 ML INJ IVP STA (08:32)
[2024-08-20] MEDS: D5W 1,000 ML IV SCH (08:33)
--- NOTE | 2024-08-20 10:22 | P.PN ---
Date of Service: 08/20/24 Subjective Admitted with cirrhosis, reports generalized weakness no reported bleeding Will have physical therapy, work with patient prior to discharge plan to return to In pt rehab Review of Systems 10 point review of system negative unless listed in HPI Physical Examination - Vital Signs Reviewed - Physical Exam General: Alert and oriented x3, HEENT: Conjunctiva not pale, anicteric sclera Cardiovascular:regular rhythm, normal rate, Respiratory: clear to auscultation bilaterally, adequate breath sounds bilaterally, Gastrointestinal: Soft, nondistended, nontender, normal bowel sounds. Extremities: no tenderness, no deformity Musculoskeletal: Generalized weak Skin: Normal skin turgor, no rash, Neuro: No focal motor deficit. Normal speech Psychiatry: Normal mood, no agitation. Assessment And Plan - Current Problems (Diagnosis) Alcoholic cirrhosis severe esophageal varices Acute blood loss anemia resolved GI bleeding resolved History of TIPS procedure Nash esophagus Status post EGD with GI with severe esophageal varices noted No bleeding, hemoglobin stable Lactulose, Xifaxan, Current Visit: No Status: Acute Plan: Has alcoholic cirrhosis with significant anasarca abnormal renal function see Argueta catheter physical therapy, improving vital signs stable labs reviewed complaining of wheezing presumed history of obstructive airways disease add bronchodilators patient's white count is elevated as the patient has a persistently elevated white count check urinalysis chest x-ray serum procalcitonin level patient was started on sotalol due to nonsustained VT Qualifiers: Ascites presence: without ascites Qualified Code(s): K70.30 - Alcoholic cirrhosis of liver without ascites acute Nonsustained V. tach On sotalol, telemetry anasarca improving Acute kidney injury likely secondary to hepatorenal syndrome Nephrology following, trend kidney function TTE on 08/16/2024 unremarkable with LVEF normal at 60-65%. Hypokalemia improved Hyper magnesium improved Hypophosphatemia improved Trend electrolytes replace as needed nephrology for Diabetes type 2 Sliding scale insulin, Accu-Chek Diabetic diet Impaired mobility PT eval, once clinically stable. DVT prophylaxis: SCDs Advanced directive: Full code Time with patient 30 minutes
--- NOTE | 2024-08-21 03:09 | PN ---
Date of Progress Note: 08/20/2024 Chief Complaint: Cirrhosis of the liver with gross anasarca. Review of Systems: The patient denies chest pain, palpitation. Physical Examination: Lungs: Diminished breath sounds at bases. Heart: S1, S2. Abdomen: Soft. Extremities: Slight edema. Laboratory Work: Showed sodium 147, potassium 4.0, creatinine 1.7, magnesium 2.8, phosphorus to 2.9. Impression: 1.Acute kidney injury, multifactorial, secondary to hepatorenal syndrome superimposed with nonsteroi soto anti-inflammatory medication effect as well as renal hypoperfusion. Serum creatinine level is el evated. It previously was plateauing at 1.5 to 1.6. The patient will continue Argueta catheter. The patient received IV fluids and albumin. Continue to monitor blood pressure and advance midodrine as needed. 2.Continue octreotide for hepatorenal syndrome and PPI for questionable gastrointestinal bleeding. 3.Anasarca secondary to renal failure, hepatorenal syndrome with hypoalbuminemia. Continue to monit or urine output. The patient has had echo done on August 16, 2024, which is unremarkable with LVEF in normal range from 60 to 65. 4.Urine chemistry showed adequate nocturia. Continue torsemide with the same dose. 5.Hypokalemia. Potassium chloride repletion as needed. 6.Liver cirrhosis with gastrointestinal bleeding and portal hypertension. Continue PPI. Continue m idodrine p.o. t.i.d. 7.Diabetes mellitus per Primary Team. 8.Hypernatremia. Sodium level is 146 to 147. Correction with IV dextrose water. 9.Encourage p.o. intake. 10.Chronic respiratory alkalosis and pH normal. No indication for bicarbonate therapy. 11.Hypophosphatemia. The patient received phosphorus IV repletion. 12.Hypermagnesemia. Monitor. Avoid magnesium preparation. EB/MODL Voice ID: [id number] Report ID: [id number]
[2024-08-21 05:37] LABS: Albumin 1.9 g/dL (3.4-5.0); Anion Gap 10.6 mEq/L (5.0-15.0); Magnesium 2.1 mg/dL (1.6-2.4); Phosphorus 2.3 mg/dL (2.5-4.9); Potassium 3.6 mEq/L (3.5-5.1)
--- NOTE | 2024-08-21 10:46 | P.DS ---
Admission Date: 08/14/24 Discharge Date: 08/23/24 Disposition: DC HOME/HOME HEALTH CARE Reason for Admission: Cirrhosis of the liver with gross anasarca Brief History of Present Illness: 74-year-old male history of type 2 diabetes, Nash's esophagus, alcoholic cirrhosis, history of TIPS procedure in 2020, severe protein calorie malnutrition, aortic stenosis, skin cancer was admitted this evening to rehab floor for debility. Medicine consultation was requested due to abnormal blood work and weakness. Initial labs showed significant weakness anemia elevated ammonia, elevated lactic acid, elevated white blood cells as well as urinalysis showed yeast. Patient did report some mild lower abdominal pain. As well as dark stools. The patient has received much of his care at [facility]. He does take lactulose chronically. He does have history of transjugular intrahepatic portosystemic shunt. During chart review as patient was also considered for liver transplant. The patient was requested to come to the hospital by his home health due to not looking well. Initial vitals were stable. Patient was mentating okay and answering questions. Patient was transferred to the ICU due to his status. - Physical Exam General: Alert and oriented x3, HEENT: Conjunctiva not pale, anicteric sclera Cardiovascular:regular rhythm, normal rate, Respiratory: clear to auscultation bilaterally, adequate breath sounds bilaterally, Gastrointestinal: Soft, nondistended, nontender, normal bowel sounds. Extremities: no tenderness, no deformity, B) arms weeping, Musculoskeletal: Generalized weak Skin: Normal skin turgor, no rash, Neuro: No focal motor deficit. Normal speech Psychiatry: Normal mood, no agitation Hospital Course: 74-year-old male history of type 2 diabetes, Nash's esophagus, alcoholic cirrhosis, history of TIPS procedure in 2020, severe protein calorie malnutrition, aortic stenosis, skin cancer was admitted this evening to rehab floor for debility. Medicine consultation was requested due to abnormal blood work and weakness. Initial labs showed significant weakness anemia elevated ammonia, elevated lactic acid, elevated white blood cells as well as urinalysis showed yeast. Patient did report some mild lower abdominal pain. As well as dark stools. The patient has received much of his care at [facility]. He does take lactulose chronically. He does have history of transjugular intrahepatic portosystemic shunt. During chart review as patient was also considered for liver transplant. Had an episode of nonsustained V. tach, started on sotalol, acute kidney injury, is being followed by nephrology, for abnormal electrolytes, hypokalemia, hyper magnesium, hypophosphatemia, he was noted to have GI bleed, severe esophageal varices, was evaluated by GI for EGD, transfused 2 unit packed red blood cells. Evaluated by physical therapy, patient is tolerating diet, no reported active bleeding, Plan to discharge to acute inpatient rehab Assessment Nonsustained V. tach started on sotalol, telemetry while inpatient Anasarca, bilateral upper extremity weeping, dressing changes, GI bleed secondary severe esophageal varices, was seen by GI, EGD, completed while inpatient, received 2 units of packed red blood cells, Alcoholic cirrhosis, resume lactulose and Xifaxan outpatient, History of a TIPS procedure, Diabetes type 2, recommend diabetic diet, Accu-Cheks, Impaired mobility plan to discharge to acute inpatient rehab Continue home medicines as previously prescribed GOAL: Clear understanding of disease process INSTRUCTIONS: Physician Discharge Instructions: -Follow-up with PCP in 1 to 2 weeks -Please call Dr. Crowder at [phone] if any questions regarding hospital stay -Please call nursing station at [phone] if any nursing or medication questions -Return to the emergency room if symptoms worsen Diet: ADA, low sodium Activity: Fall precautions Vital Signs/Physical Exam: Temp Pulse Resp BP Pulse Ox 97 F 62 12 109/43 L 93 08/21/24 08:00 08/21/24 08:00 08/21/24 08:00 08/21/24 08:00 08/21/24 08:00 Laboratory Data at Discharge: WBC 22.20 thou/uL (4.3-10.9) H 08/20/24 04:52 Hgb 8.1 g/dL (13.6-17.9) L 08/20/24 04:52 Hct 26.1 % (39.6-49.0) L 08/20/24 04:52 Plt Count 81 thou/uL (152-406) L 08/20/24 04:52 PT 18.6 SECONDS (9.4-12.5) H 08/15/24 03:20 INR 1.69 08/15/24 03:20 Sodium 144 mEq/L (136-145) 08/21/24 04:56 Potassium 3.6 mEq/L (3.5-5.1) 08/21/24 04:56 BUN 31 mg/dL (7-18) H 08/21/24 04:56 Creatinine 1.71 mg/dL (0.70-1.30) H 08/21/24 04:56 Glucose 157 mg/dL (74-106) H 08/21/24 04:56 Uric Acid 6.5 mg/dL (3.5-7.2) 08/17/24 05:00 Phosphorus 2.3 mg/dL (2.5-4.9) L 08/21/24 04:56 Magnesium 2.1 mg/dL (1.6-2.4) 08/21/24 04:56 Total Bilirubin Cancelled 08/20/24 06:00 AST Cancelled 08/20/24 06:00 ALT Cancelled 08/20/24 06:00 Alkaline Phosphatase Cancelled 08/20/24 06:00 Home Medications: Amiloride HCl 5 mg PO [id number] 08/14/24 Calcium Carbonate [Tums] 400 mg PO DAILY PRN 08/14/24 Insulin Glargine,Hum.rec.anlog [Lantus Solostar] 18 unit SQ DAILY 08/14/24 Lactulose 45 gm PO TID 08/14/24 Potassium Phosphate,Monobasic [K-Phos Original] 500 mg PO BID 08/14/24 Arformoterol Tartrate [Brovana] 15 mcg NEB BIDRESP vial.neb 08/21/24 Insulin Regular, Human [Novolin R] See Protocol SQ ACHS ml 08/21/24 Lactulose [Cephulac*] 60 ml PO TID 30 Days #1 bottle 08/21/24 Midodrine HCl 10 mg PO TID PRN 30 Days #90 tab 08/21/24 Ondansetron [Zofran*] 4 mg IV Q6HP PRN vial 08/21/24 Pantoprazole [Protonix Tab*] 40 mg PO BIDAC tab 08/21/24 Sotalol HCl [Betapace*] 80 mg PO BID 6AM 6PM tab 08/21/24 Thiamine HCl 100 mg PO DAILY 30 Days #30 tab 08/21/24 Torsemide [Demadex*] 20 mg PO DAILY tab 08/21/24 Cefdinir [Cefdinir*] 300 mg PO BID 7 Days #14 cap 08/23/24 Pantoprazole [Protonix Tab] 40 mg PO BID #60 tab 08/23/24 Sotalol HCl [Betapace*] 80 mg PO BID 30 Days #60 tab 08/23/24 Spironolactone [Aldactone*] 25 mg PO DAILY 30 Days #30 tab 08/23/24 Sucralfate [Carafate -Tab] 1 gm PO ACHS #120 tab 08/23/24 New Medications: Spironolactone [Aldactone*] 25 mg PO DAILY 30 Days #30 tab Sotalol HCl [Betapace*] 80 mg PO BID 30 Days #60 tab Sucralfate [Carafate -Tab] 1 gm PO ACHS #120 tab Cefdinir [Cefdinir*] 300 mg PO BID 7 Days #14 cap Midodrine HCl 10 mg PO TID PRN 30 Days #90 tab PRN Reason: Titrate To Sbp (Must Define) Pantoprazole [Protonix Tab] 40 mg PO BID #60 tab Thiamine HCl 100 mg PO DAILY 30 Days #30 tab Physician Discharge Instructions: PROBLEM: liver cirrhosis GOAL: Clear understanding of disease process INSTRUCTIONS: Diet: AHA Activity: Fall precautions PROBLEM: Cirrhosis GOAL: Clear understanding of disease process INSTRUCTIONS: Diet: AHA Activity: Fall precautions 74-year-old male history of type 2 diabetes, Nash's esophagus, alcoholic cirrhosis, history of TIPS procedure in 2020, severe protein calorie malnutrition, aortic stenosis, skin cancer was admitted this evening to rehab floor for debility. Medicine consultation was requested due to abnormal blood work and weakness. Initial labs showed significant weakness anemia elevated ammonia, elevated lactic acid, elevated white blood cells as well as urinalysis showed yeast. Patient did report some mild lower abdominal pain. As well as dark stools. The patient has received much of his care at [facility]. He does take lactulose chronically. He does have history of transjugular intrahepatic portosystemic shunt. During chart review as patient was also considered for liver transplant. Had an episode of nonsustained V. tach, started on sotalol, acute kidney injury, is being followed by nephrology, for abnormal electrolytes, hypokalemia, hyper magnesium, hypophosphatemia, he was noted to have GI bleed, severe esophageal varices, was evaluated by GI for EGD, transfused 2 unit packed red blood cells. Evaluated by physical therapy, patient is tolerating diet, no reported active bleeding, Plan to discharge to acute inpatient rehab Assessment Nonsustained V. tach started on sotalol, telemetry while inpatient Anasarca, bilateral upper extremity weeping, dressing changes, GI bleed secondary severe esophageal varices, was seen by GI, EGD, completed while inpatient, received 2 units of packed red blood cells, Alcoholic cirrhosis, resume lactulose and Xifaxan outpatient, History of a TIPS procedure, Diabetes type 2, recommend diabetic diet, Accu-Cheks, Impaired mobility plan to discharge to acute inpatient rehab Continue home medicines as previously prescribed GOAL: Clear understanding of disease process INSTRUCTIONS: Physician Discharge Instructions: -Discharge to acute inpatient rehab -Follow-up with PCP in 1 to 2 weeks -Please call Dr. Crowder at [phone] if any questions regarding hospital stay -Please call nursing station at [phone] if any nursing or medication questions -Return to the emergency room if symptoms worsen Diet: ADA, low sodium Activity: Fall precautions Diet: AHA Activity: Fall precautions Time spent managing pt's care (in minutes): 55
[2024-08-21] MEDS ORDERED: ARFORMOTEROL TARTRATE 15 MCG/2 ML VIAL.NEB NEB PRN (13:28)
--- NOTE | 2024-08-21 15:18 | P.PN ---
Date of Service: 08/21/24 Subjective e plan to return to In pt rehab, moderate generalized weakness, unsteady gait PT working with patient Review of Systems 10 point review of system negative unless listed in HPI Physical Examination - Vital Signs Reviewed - Physical Exam General: Alert and oriented x3, HEENT: Conjunctiva not pale, anicteric sclera Cardiovascular:regular rhythm, normal rate, Respiratory: clear to auscultation bilaterally, unlabored Gastrointestinal: Soft, nondistended, nontender, Extremities: no tenderness, no deformity Musculoskeletal: Generalized weakness, Skin: Normal skin turgor, no rash, Neuro: No focal motor deficit. Normal speech Psychiatry: Normal mood, no agitation. Assessment And Plan - Current Problems (Diagnosis) Acute cystitis With leukocytosis Started ceftriaxone UA positive for acute UTI Alcoholic cirrhosis severe esophageal varices Acute blood loss anemia resolved GI bleeding resolved History of TIPS procedure Nash esophagus Status post EGD with GI with severe esophageal varices noted No bleeding, hemoglobin stable Lactulose, Xifaxan, Current Visit: No Status: Acute Plan: Has alcoholic cirrhosis with significant anasarca abnormal renal function see Argueta catheter physical therapy, improving vital signs stable labs reviewed complaining of wheezing presumed history of obstructive airways disease add bronchodilators patient's white count is elevated as the patient has a persistently elevated white count check urinalysis chest x-ray serum procalcitonin level patient was started on sotalol due to nonsustained VT Qualifiers: Ascites presence: without ascites Qualified Code(s): K70.30 - Alcoholic cirrhosis of liver without ascites acute Nonsustained V. tach On sotalol, telemetry Hypotension Midodrine 3 times daily as needed daily anasarca improving Acute kidney injury likely secondary to hepatorenal syndrome Bilateral upper extremity weeping tissue wounds Nephrology following, trend kidney function TTE on 08/16/2024 unremarkable with LVEF normal at 60-65%. Daily dressing changes, as needed BRI with CKD Hypokalemia improved Hyper magnesium improved Hypophosphatemia improved Trend electrolytes replace as needed nephrology to adjust diuretic Diabetes type 2 Sliding scale insulin, Accu-Chek Diabetic diet Impaired mobility PT eval, once clinically stable. DVT prophylaxis: SCDs Advanced directive: Full code Time with patient 25 minutes
--- NOTE | 2024-08-21 16:21 | PN ---
Date of Progress Note: 08/18/2024 Subjective: The patient was admitted to the hospital with acute kidney injury secondary to hepatorenal. Patient stabilized. Patient has no shortness of breath. Has leg edema. Objective: Vital Signs: Blood pressure 109/43, pulse of 62, afebrile. The patient had good urine output. Chest: Clear to auscultation. Heart: S1, S2. Systolic murmur. Abdomen: Soft, nontender. Extremities: Plus edema. Neurologic: Alert. No focality. Laboratory Data: WBC 22.2, hemoglobin 8.1, sodium 144, potassium 3.6, bicarb 17, BUN 31, creatinine 1.7, GFR 42, calcium 7.6, phosphorus 2.3, magnesium 2.1. Chest x-ray: Infiltration on the upper lobe. Current Medications: The patient on, it includes lactulose, sotalol, ceftriaxone, pantoprazole, Zofran, Carafate. KCl. Potassium sulfate. Assessment And Plan: 1. Acute kidney injury on chronic kidney disease, stable, recovered, plateaued. I am going to resume low dose of Lasix and we will follow up the patient closely. 2. Hypertension, controlled, optimal. Continue current treatment. 3. Peripheral edema secondary to hepatorenal. We will resume diuresis. 4. Hypokalemia. We will supplement. 5. Pneumonia. Continue follow up with the Primary. 6. Deconditioning. Agree with moving to rehab. Time spent examining the patient [id number], reviewing data, lab, and radiology, placing order, discussing the case with the patient, discussing the case with the steam shovel runner including hospitalist and nursing staff more than 55 minutes. JV Voice ID: [id number] Report ID: [id number] WALKER
[2024-08-22 08:51] LABS: Absolute Eosinophils 0.2 K/uL (0-0.5); Absolute Lymphocytes (CBC) 1.7 K/uL (0.7-4.9); Absolute Monocytes 2.1 K/uL (0.1-1.3); Absolute Neutrophil 12.9 K/uL (1.8-8.0); Basophils % 0.2 % (0-1.3); Eosinophils % 1.2 % (0-4.4); Hematocrit 25.9 % (39.6-49.0); Hemoglobin 8.3 g/dL (13.6-17.9); Lymphocytes % 9.8 % (15.3-44.8); MCH 29.2 pg (27.0-35.0); MCV 91.5 fL (80-100); MPV 8.2 fL (7.6-11.3); Monocytes % 12.7 % (3.3-12.3); Neutrophils % 76.1 % (41.7-73.7); Platelets 98 thou/uL (152-406); RBC Red Blood Cell Count 2.83 M/uL (4.33-5.43); Red Cell Distribution Width 21.8 % (12.1-15.2)
[2024-08-22 09:01] LABS: Albumin 1.7 g/dL (3.4-5.0); Anion Gap 7.7 mEq/L (5.0-15.0); Phosphorus 2.2 mg/dL (2.5-4.9); Potassium 3.7 mEq/L (3.5-5.1)
[2024-08-22 09:45] LABS: Anisocytosis 1+; Blood Morphology Comment NOTED (NOT SEEN); Platelet Estimate DECR; White Blood Cell Scan OK (OK)
[2024-08-22 09:46] LABS: Burr Cells FEW; Hypochromasia 1+
[2024-08-22] MEDS: FUROSEMIDE 20 MG TABLET PO SCH (09:59)
--- NOTE | 2024-08-22 10:42 | PN ---
Date of Progress Note: 08/22/2024 Subjective: The patient was admitted with acute kidney injury secondary to hepatorenal, nonsteroidal use. The patient's kidney function plateaued. The patient responding to diuresis back. Edema has resolved. Physical Examination: Vital Signs: Blood pressure 117/53, pulse of 63, afebrile. Chest: Clear to auscultation. Heart: S1, S2 regular. Abdomen: Soft, nontender. Extremities: Trace edema. Neuro: Alert, no focality. Laboratory Data: WBC 16.9, trending down; hemoglobin 8.3. Sodium 143, potassium 3.7, bicarb 19, BUN 32, creatinine down to 1.4, GFR of 50. Calcium 7.5, phosphorus 2.2, albumin 1.7, corrected calcium is 9.5. Current Medications: The patient on include ceftriaxone, sotalol, Lasix, torsemide, lactulose, pantoprazole, Carafate. Assessment And Plan: 1. Acute kidney injury secondary to hepatorenal, recovered, resolved, currently normal volume. I am going to go ahead and add spironolactone, discontinue Lasix, continue torsemide. The patient cleared from the Renal standpoint to transfer to rehab. 2. Hypertension, controlled. We will utilize blood pressure for more diuresis. 3. Hypokalemia. We are adding spironolactone. We will follow up. 4. Acidosis secondary to renal failure. I do not see the need for bicarb to avoid any salt load for the time being. 5. Pneumonia. Continue current antibiotic. 6. Cirrhosis with hepatorenal syndrome, stable. Follow up with the primary. Time spent examining the patient [id number] reviewing data lab and radiology placing order discussing the case with the patient and by bedside discussing the case with the sales floor team member including hospitalist and nursing staff more than 55 minutes JV Voice ID: [id number] Report ID: [id number] WALKER
[2024-08-22] MEDS: POTASSIUM PHOS IN 0.9 % NACL 15 MMOL/250 ML BAG IV SCH (10:48)
--- NOTE | 2024-08-23 07:59 | P.PN ---
Date of Service: 08/22/24 Subjective e plan to return to In pt rehab, moderate generalized weakness, unsteady gait PT working with patient Review of Systems 10 point review of system negative unless listed in HPI Physical Examination - Vital Signs Reviewed - Physical Exam General: Alert and oriented x3,afebrile HEENT: Conjunctiva not pale, anicteric sclera Cardiovascular:regular rhythm, normal rate, Respiratory: clear to auscultation bilaterally, unlabored Gastrointestinal: Soft, nondistended, Extremities: no tenderness, no deformity Musculoskeletal: Generalized weakness, Skin: Normal skin turgor, no rash, Neuro: No focal motor deficit. Normal speech Psychiatry: Normal mood, no agitation. Assessment And Plan - Current Problems (Diagnosis) Acute cystitis With leukocytosis Started ceftriaxone UA positive for acute UTI Alcoholic cirrhosis severe esophageal varices Acute blood loss anemia resolved GI bleeding resolved History of TIPS procedure Nash esophagus Status post EGD with GI with severe esophageal varices noted No bleeding, hemoglobin stable Lactulose, Xifaxan, Current Visit: No Status: Acute Plan: Has alcoholic cirrhosis with significant anasarca abnormal renal function see Fo alen catheter physical therapy, improving vital signs stable labs reviewed complaining of wheezing presumed history of obstructive airways disease add bronchodilators patient's white count is elevated as the patient has a persistently elevated white count check urinalysis chest x-ray serum procalcitonin level patient was started on sotalol due to nonsustained VT Qualifiers: Ascites presence: without ascites Qualified Code(s): K70.30 - Alcoholic cirrhosis of liver without ascites acute Nonsustained V. tach On sotalol, telemetry Hypotension Midodrine 3 times daily as needed daily anasarca improving Acute kidney injury likely secondary to hepatorenal syndrome Bilateral upper extremity weeping tissue wounds Nephrology following, trend kidney function TTE on 08/16/2024 unremarkable with LVEF normal at 60-65%. Daily dressing changes, as needed BRI with CKD Hypokalemia improved Hyper magnesium improved Hypophosphatemia improved Trend electrolytes replace as needed nephrology to adjust diuretic Diabetes type 2 Sliding scale insulin, Accu-Chek Diabetic diet Impaired mobility PT eval, once clinically stable. DVT prophylaxis: SCDs Advanced directive: Full code Time with patient 25 minutes
[2024-08-23] MEDS: SPIRONOLACTONE 25 MG TABLET PO SCH (08:43)
[2024-08-23 09:15] LABS: Absolute Eosinophils 0.3 K/uL (0-0.5); Absolute Lymphocytes (CBC) 1.8 K/uL (0.7-4.9); Absolute Monocytes 1.5 K/uL (0.1-1.3); Absolute Neutrophil 13.7 K/uL (1.8-8.0); Basophils % 0.2 % (0-1.3); Eosinophils % 1.5 % (0-4.4); Hematocrit 30.1 % (39.6-49.0); Hemoglobin 9.1 g/dL (13.6-17.9); Lymphocytes % 10.6 % (15.3-44.8); MCH 28.9 pg (27.0-35.0); MCHC 30.3 g/dL (32.0-36.0); MCV 95.4 fL (80-100); MPV 8.7 fL (7.6-11.3); Monocytes % 8.6 % (3.3-12.3); Neutrophils % 79.1 % (41.7-73.7); Platelets 98 thou/uL (152-406); RBC Red Blood Cell Count 3.15 M/uL (4.33-5.43); Red Cell Distribution Width 23.6 % (12.1-15.2)
[2024-08-23 09:34] LABS: Albumin 1.5 g/dL (3.4-5.0); Phosphorus 2.5 mg/dL (2.5-4.9)
--- NOTE | 2024-08-23 10:38 | PN ---
Date of Progress Note: 08/23/2024 Subjective: The patient was admitted to the hospital with encephalopathy, pneumonia, anasarca, acute kidney injury secondary to hepatorenal. The patient was treated with fluid expansion, recovered. C urrently, we will resume the diuresis. Yesterday, we added spironolactone. Objective: Vital Signs: Blood pressure 103/45, pulse of 59, afebrile. Chest: Clear to auscultation. Heart: S1, S2. Systolic murmur. Abdomen: Soft, nontender. No ascites. Extremities: More edema on the upper extremity. Neurologic: Alert. No focality. Laboratory Data: WBC 17.3, hemoglobin 9.1, sodium 144, potassium 4, bicarb 17, BUN 37, creatinine 1. 5. GFR of 48, calcium 7.5, phosphorus 2.5, albumin 1.5, corrected calcium is 9.5. Current Medications: The patient on include sotalol, ceftriaxone, lactulose, torsemide 20, pantopraz ole, Carafate. Assessment And Plan: 1.Acute kidney injury secondary to hepatorenal, recovered, resolved. Currently, normal volume. I a m going to continue current diuresis dose. 2.Acidosis, non-anion gap metabolic acidosis, mostly secondary to the renal failure/ . I a m going to start the patient on sodium bicarb and we will follow up the patient. 3.Anasarca secondary to cirrhosis. We will continue diuresis as above. 4.Pneumonia. Continue current antibiotic. 5.Hyponatremia, dilutional, resolved. 6.Hypokalemia, resolved. Continue spironolactone. IRISH/RENÉE Voice ID: [id number] Report ID: [id number]
[2024-08-23 11:37] VITALS: O2SAT 90
[2024-08-23] MEDS: SODIUM BICARB 325 MG TAB PO SCH (12:12)
--- NOTE | 2024-08-23 12:17 | EKG ---
Test Date: 2024-08-17 Test Time: 13:25:10 Powder Coater: MG MEASUREMENT RESULTS: Intervals: Rate: 55 RI: 160 QRSD: 62 QT: 478 QTc: 457 [place]: P: RI: 160 QRS: 61 T: 12 INTERPRETIVE STATEMENTS: Sinus bradycardia with premature supraventricular complexes Nonspecific ST abnormality Abnormal ECG Compared to ECG 08/17/2024 13:23:52 Atrial premature complex(es) now present Sinus arrhythmia no longer present ST (T wave) deviation still present Electronically Signed On 08-23-24 12:01:20 CDT by Shade German
--- NOTE | 2024-08-23 12:18 | EKG ---
Test Date: 2024-08-17 Test Time: 13:23:52 Electric Motor Repair Supervisor: MG MEASUREMENT RESULTS: Intervals: Rate: 50 LA: 166 QRSD: 56 QT: 454 QTc: 413 [place]: P: LA: 166 QRS: 63 T: 80 INTERPRETIVE STATEMENTS: Sinus bradycardia with sinus arrhythmia Nonspecific ST and T wave abnormality Abnormal ECG Compared to ECG 08/17/2024 13:21:03 Atrial fibrillation no longer present Prolonged QT interval no longer present ST (T wave) deviation still present Electronically Signed On 08-23-24 12:01:25 CDT by Shade German
--- NOTE | 2024-08-23 12:18 | EKG ---
Test Date: 2024-08-17 Test Time: 13:21:03 Trouble Clerk: MG MEASUREMENT RESULTS: Intervals: Rate: 57 MD: QRSD: 62 QT: 492 QTc: 478 [place]: P: MD: QRS: 56 T: 59 INTERPRETIVE STATEMENTS: Atrial fibrillation with slow ventricular response Nonspecific ST and T wave abnormality, probably digitalis effect Prolonged QT Abnormal ECG No previous ECG available for comparison Electronically Signed On 08-23-24 12:01:29 CDT by Shade German
[2024-08-23 17:09] VITALS: BP 95/46; TEMP 98.2
== END 2024-08-23 17:23 | disposition home health service (06) | DRG 871 ==
LOC: 3RD-ICU 22:57 → 2ND 08-18 12:52
PROVIDERS: ADMIT Nurse Practitioner; ATTEND Hospitalist
PROC: 0T9B70Z Drainage of Bladder with Drainage Device, Via Natural or Artificial Opening (ICD-10-PCS; 2024-08-15)
PROC: 30233N1 Transfusion of Nonautologous Red Blood Cells into Peripheral Vein, Percutaneous Approach (ICD-10-PCS; principal; 2024-08-15 10:00)
PROC: 02HV33Z Insertion of Infusion Device into Superior Vena Cava, Percutaneous Approach (ICD-10-PCS; 2024-08-17)
PROC: 4A033R1 Measurement of Arterial Saturation, Peripheral, Percutaneous Approach (ICD-10-PCS; 2024-08-18)
DX: A41.9 Sepsis, unspecified organism (principal); E43 Unspecified severe protein-calorie malnutrition; K72.00 Acute and subacute hepatic failure without coma; K76.7 Hepatorenal syndrome; J18.9 Pneumonia, unspecified organism; D62 Acute posthemorrhagic anemia; E87.20 Acidosis, unspecified; I47.20 Ventricular tachycardia, unspecified; K76.6 Portal hypertension; E87.0 Hyperosmolality and hypernatremia; N17.9 Acute kidney failure, unspecified; E87.3 Alkalosis; I85.10 Secondary esophageal varices without bleeding; N30.00 Acute cystitis without hematuria; G93.40 Encephalopathy, unspecified; K70.30 Alcoholic cirrhosis of liver without ascites; N18.9 Chronic kidney disease, unspecified; E11.22 Type 2 diabetes mellitus with diabetic chronic kidney disease; E11.649 Type 2 diabetes mellitus with hypoglycemia without coma; D63.1 Anemia in chronic kidney disease; I48.91 Unspecified atrial fibrillation; I95.89 Other hypotension; E87.6 Hypokalemia; K72.10 Chronic hepatic failure without coma; K22.70 Barrett's esophagus without dysplasia; E83.41 Hypermagnesemia; K20.90 Esophagitis, unspecified without bleeding; E83.39 Other disorders of phosphorus metabolism; K29.70 Gastritis, unspecified, without bleeding; N50.89 Other specified disorders of the male genital organs; E88.09 Other disorders of plasma-protein metabolism, not elsewhere classified; F17.200 Nicotine dependence, unspecified, uncomplicated; B37.9 Candidiasis, unspecified; Z88.1 Allergy status to other antibiotic agents; Z79.4 Long term (current) use of insulin; Z88.8 Allergy status to other drugs, medicaments and biological substances; Z74.01 Bed confinement status; Z68.24 Body mass index [BMI] 24.0-24.9, adult; Z85.05 Personal history of malignant neoplasm of liver; Z79.899 Other long term (current) drug therapy; Z85.828 Personal history of other malignant neoplasm of skin
CPT/HCPCS: 36415; 36569; 36600; 71045; 80048; 80053; 80069; 80202; 81001; 82550; 82570; 82728; 82805; 82947; 83540; 83605; 83735; 83935; 83970; 84100; 84132; 84145; 84156; 84300; 84443; 84466; 84550; 85014; 85018; 85025; 85027; 85044; 85610; 86850; 86900; 86901; 86920; 87040; 93005; 93306; 94640; 97116; 97161; 97530; J0171; J0692; J0696; J2354; J2470; J2543; J2704; J3411; J3475; J3480; J7030; J7040; J7042; J7050; J7605; P9016; P9047

== ENCOUNTER 2024-09-04 14:26 | Emergency (ER) | payer OTHER ==
[2024-09-04 15:37] LABS: Absolute Basophils 0.1 K/uL (0-0.5); Absolute Lymphocytes (CBC) 1.6 K/uL (0.7-4.9); Absolute Neutrophil 20.7 K/uL (1.8-8.0); Basophils % 0.3 % (0-1.3); Eosinophils % 0.1 % (0-4.4); Hematocrit 25.4 % (39.6-49.0); Hemoglobin 7.7 g/dL (13.6-17.9); Lymphocytes % 6.6 % (15.3-44.8); MCH 29.6 pg (27.0-35.0); MCHC 30.4 g/dL (32.0-36.0); MCV 97.2 fL (80-100); MPV 8.5 fL (7.6-11.3); Monocytes % 8.2 % (3.3-12.3); Neutrophils % 84.8 % (41.7-73.7); Nucleated RBC Absolute Count 0.1 (0-0); Nucleated Red Blood Cells % 0.3 % (0-0); Platelets 161 thou/uL (152-406); RBC Red Blood Cell Count 2.61 M/uL (4.33-5.43); Red Cell Distribution Width 27.4 % (12.1-15.2)
--- NOTE | 2024-09-04 16:01 | RAD REPORT ---
EXAM: CT Head Brain Wo Cont HISTORY: CONFUSED COMPARISON: None TECHNIQUE: Multiple contiguous axial images were obtained for a CT of the brain without contrast. Sag ittal and coronal reformats were performed. One or more of the following dose reduction techniques were used: Automated exposure control, adjus tment of the mA and kV according to patient size, and iterative reconstruction. Unless otherwise specified, incidental findings do not require dedicated imaging follow-up. FINDINGS: No evidence of hydrocephalus, intracranial hemorrhage, or extra-axial fluid collection. Prominence of the extra-axial spaces near the vertex bilaterally. Linear mildly hyperdense structure coursing along the right frontal convexity, suggestive of a venous structure rather than a collection. Mild diffuse brain atrophy with mild periventricular and deep white matter chronic microvascular isch emic changes present. The calvarium is intact. The visualized paranasal sinuses and mastoid air cells are essentially clear . IMPRESSION: No evidence of acute intracranial abnormality. Chronic findings as above.
[2024-09-04 16:06] LABS: PT Prothrombin Time 27.9 SECONDS (9.4-12.5); PTT, Activated Partial Thromb 33.2 SECONDS (24.3-36.9); Protime INR 2.56
--- NOTE | 2024-09-04 16:08 | RAD REPORT ---
EXAMINATION: ONE VIEW CHEST XR CLINICAL INDICATION: Male, 74 years old.,AMS;[place]alaise TECHNIQUE: Frontal chest projection is submitted. Examination is limited by patient positioning and t echnique. COMPARISON: 08/20/2024. FINDINGS: The lungs are well inflated. Mild retrocardiac opacity with trace effusion. Partial improvement of lam zy opacification in the right upper lobe No pneumothorax or other sizable effusion. The heart is normal in size. Mediastinal contours are unremarkable. IMPRESSION: New mild retrocardiac opacity with trace effusion, may reflect developing pneumonia. Partial improvement of hazy opacification in the right upper lobe.
[2024-09-04] MEDS ORDERED: CEFEPIME 2 GM VIAL ONE (16:28)
[2024-09-04] MEDS ORDERED: NA CHLORIDE 0.9% 100 ML ONE (16:28)
[2024-09-04] MEDS ORDERED: NA CHLORIDE 0.9% 2,000 ML ONE (16:28)
[2024-09-04 16:53] LABS: Albumin/Globulin Ratio 0.3 (1.1-1.8); Anion Gap 9.2 mEq/L (5.0-15.0); Troponin High Sensitivity 16.2 pg/mL (<58.9)
[2024-09-04 16:54] LABS: Potassium 4.2 mEq/L (3.5-5.1)
[2024-09-04 16:57] LABS: SARS-CoV-2 Antigen CONTROL BLUE LINE VIS/BG OK; SARS-CoV-2 Antigen Rapid Res Negative (Negative)
[2024-09-04] MEDS ORDERED: CEFEPIME 1 GM/VIAL ONE (17:05)
[2024-09-04] MEDS ORDERED: NA CHLORIDE 0.9% 250 ML ONE (17:05)
[2024-09-04] MEDS ORDERED: VANCOMYCIN 1 GM/VIAL ONE (17:05)
[2024-09-04 17:11] LABS: Blood Morphology Comment NOTED (NOT SEEN); Platelet Estimate ADEQ; White Blood Cell Scan OK (OK)
[2024-09-04 17:12] LABS: Anisocytosis 2+; Poikilocytosis 2+
[2024-09-04 17:12] LABS: Specific Gravity 1.013 (1.005-1.030); Sqamous Epithelial <5 /HPF (None Seen); Urine Bacteria None Seen /HPF (<20); Urine Bilirubin NEGATIVE (Negative); Urine Blood Trace (Negative); Urine Clarity Clear (Clear); Urine Color Yellow (Yellow); Urine Crystals Unidentified Few /HPF (None Seen); Urine Culture Reflex Order NOT NEEDED; Urine Glucose NEGATIVE (Negative); Urine Ketones NEGATIVE (Negative); Urine Microscopic Reflex YN ORDER UMIC; Urine Mucus Slight /HPF (None Seen); Urine Nitrite NEGATIVE (Negative); Urine Protein NEGATIVE (Negative); Urine RBC <5 /HPF (None Seen); Urine Urobilinogen Normal (Normal); Urine WBC <5 /HPF (<5)
--- NOTE | 2024-09-04 17:54 | ER ---
Nurse's Notes [facility] Name: Dick Branch Age: 74 yrs Sex: Male : 1950 Arrival Date: 09/04/2024 Time: 14:26 Bed 16 Private MD: Diagnosis: Sepsis, septic shock, pneumonia, lactic acidosis, liver failure, coagulopathy Presentation: 09/04 14:29 Chief complaint: EMS states: called EMS because pt has hx of cirrhosis and has not ph had a BM in a day and a half and is starting to become confused, has been giving him lactulose as prescribed, VSS for EMS, BM noted in brief upon arrival to ED. Coronavirus screen: Vaccine status: Patient reports receiving the 2nd dose of the covid vaccine. Ebola Screen: No symptoms or risks identified at this time. Initial Sepsis Screen: Does the patient meet any 2 criteria? No. Patient's initial sepsis screen is negative. Does the patient have a suspected source of infection? No. Patient's initial sepsis screen is negative. Risk Assessment: Do you want to hurt yourself or someone else? Patient reports no desire to harm self or others. Onset of symptoms was September 04, 2024. 14:29 Method Of Arrival: EMS: [facility] ph 14:29 Acuity: MILLIE 2 ph Historical: - Allergies: 14:31 Zinc; ph 14:31 Spironolactone; ph 14:31 Furosemide; ph 14:31 Bumetanide; ph 14:31 Doxycycline; ph 14:31 Ciprofloxacin; ph 14:31 METRONIDAZOLE; ph 14:31 Omeprazole; ph 14:31 Midodrine; ph 14:31 Metformin HCl; ph 14:31 Propranolol; ph 14:31 Losartan; ph 14:31 pantoprazole; ph 14:31 Rifaximin; ph 14:31 EPLERENONE; ph 14:31 dexlansoprazole; ph 14:31 empagliflozin; ph - PMHx: 14:31 diabetes mellitus; GERD; Hypertension; ph - PSHx: 14:31 R ear; ph - Immunization history:: Adult Immunizations unknown. - Infectious Disease History:: Denies. - Social history:: Smoking status: Patient denies any tobacco usage or history of. Screenin:00 [facility] ED Fall Risk Assessment (Adult) History of falling in the last 3 months, ph including since admission Yes- fall prone (multiple falls) (3 pts) Confusion or Disorientation No (0 pts) Intoxicated or Sedated No (0 pts) Impaired Gait Yes (1 pt) Mobility Assist Device Used Yes (1 pt) Altered Elimination Yes (1 pt) Score/Fall Risk Level 3 or more points = High Risk Oriented to surroundings, Maintained a safe environment, Hourly rounding (assess needs \\T\\ fall precautionary measures) done, Used ambulatory aids as needed (educated on \\T\\ assisted with). Nutritional screening: No deficits noted. Tuberculosis screening: No symptoms or risk factors identified. 18:37 Abuse screen: Denies threats or abuse. Denies injuries from another. ph Assessment: 15:00 General: Appears in no apparent distress. ill, Behavior is calm, cooperative. Pain: ph Complains of pain in "everywhere". Neuro: Level of Consciousness is awake, obeys commands, lethargic, Oriented to person, place. Cardiovascular: Capillary refill < 3 seconds in bilateral fingers Patient's skin is warm and dry. Respiratory: Reports cough that is Airway is patent Respiratory effort is even, unlabored, Respiratory pattern is regular, symmetrical, Breath sounds are coarse bilaterally. GI: Reports lower abdominal pain, upper abdominal pain. : No signs and/or symptoms were reported regarding the genitourinary system. Derm: Skin is fragile, is thin, has skin tears on multiple skin tears to bilateral arms Skin is dry, Skin is dusky. 19:05 General: Appears in no apparent distress. comfortable, Behavior is calm, cooperative. rg5 19:05 Pain: Denies pain. Neuro: Level of Consciousness is awake, alert, obeys commands, rg5 Oriented to person, place. Cardiovascular: Patient's skin is warm and dry. Respiratory: Airway is patent Trachea midline Respiratory effort is even, unlabored, Respiratory pattern is regular, symmetrical. GI: Abdomen is round non-distended, Bowel sounds present X 4 quads. Abd is soft and non tender. : Argueta in place to gravity drainage. EENT: No deficits noted. Derm: Skin is intact, is fragile, is thin, Skin is dry, Skin is normal. Musculoskeletal: Circulation, motion, and sensation intact. Range of motion: intact in all extremities. 20:00 Reassessment: Patient and/or family updated on plan of care and expected duration. Pain rg5 level reassessed. Patient is alert, oriented x 3, equal unlabored respirations, skin warm/dry/pink. 21:33 Reassessment: Patient and/or family updated on plan of care and expected duration. Pain rg5 level reassessed. Patient is alert, oriented x 3, equal unlabored respirations, skin warm/dry/pink. Vital Signs: 14:29 BP 104 / 54; Pulse 67; Resp 18; Temp 97.5; Pulse Ox 97% on R/A; ph 15:30 BP 113 / 65; Pulse 72; Resp 18; Pulse Ox 99% on R/A; ph 16:00 BP 104 / 77; Pulse 76; Resp 16; Pulse Ox 99% on R/A; ph 16:30 BP 110 / 47; Pulse 76; Resp 18; Pulse Ox 100% on R/A; ph 17:00 BP 109 / 52; Pulse 72; Resp 18; Temp 97.8; Pulse Ox 100% on R/A; ph 17:30 BP 109 / 52; Pulse 69; Resp 18; Pulse Ox 100% on R/A; ph 18:00 BP 105 / 48; Pulse 79; Resp 18; Pulse Ox 100% on R/A; ph 18:08 Weight 61.23 kg; ph 18:30 BP 113 / 61; Pulse 73; Resp 16; Pulse Ox 100% on R/A; ph 19:15 BP 124 / 43; Pulse 77; Resp 17; Pulse Ox 100% on R/A; rg5 20:00 BP 107 / 59; Pulse 76; Resp 17; Pulse Ox 100% on R/A; rg5 21:00 BP 108 / 75; Pulse 93; Resp 18; Pulse Ox 100% ; Pain 0/10; rg5 22:00 BP 103 / 53; Pulse 79; Resp 18; Temp 98(O); Pulse Ox 99% on R/A; Pain 0/10; rg5 21:00 Pain Scale: Adult rg5 22:00 Pain Scale: Adult rg5 ED Course: 14:28 Patient arrived in ED. ph 14:31 Sunshine Sanchez MD is Attending Physician. sp3 14:31 Triage completed. ph 15:00 Cleaned of incontinence. ph 15:00 Patient has correct armband on for positive identification. Placed in gown. Bed in low ph position. Call light in reach. Side rails up X2. Client placed on continuous cardiac and pulse oximetry monitoring. NIBP monitoring applied. personnel monitor on. Door closed. Noise minimized. Warm blanket given. Pillow given. 15:22 Arm band placed on Patient placed in an exam room, in a wheelchair, on pulse oximetry. ph 15:30 Initial lab(s) drawn, by me, sent to lab. Maintain EMS IV. Dressing intact. Good blood ph return noted. Site clean \\T\\ dry. Gauge \\T\\ site: 20 L wrist. Flushed with 10 mL NS. 15:39 CT Head Brain wo Cont In Process Unspecified. EDMS 15:46 Chest Single View XRAY In Process Unspecified. EDMS 15:56 Monique Pozo, RN is Primary Nurse. ph 16:40 Urine collected: Argueta catheter specimen, clear, EKG done, by ED staff, reviewed by jacki Sanchez MD. Argueta cath inserted, using sterile technique, 16 Fr., by me, balloon inflated, to gravity drainage, urine specimen collected. 17:47 US Abdomen Limited In Process Unspecified. EDMS 17:[address] [facility]. bd 18:00 CT Abd/Pelvis - Without Contrast In Process Unspecified. EDMS 18:41 No provider procedures requiring assistance completed. Patient transferred, IV remains ph in place. 20:09 Attending Physician role handed off by Sunshine Sanchez MD ec2 20:09 Fahad Bates MD is Attending Physician. ec2 21:15 try to called report but I was advised to return call because they are trying to have rg5 the pt to another unit. Administered Medications: 16:35 Drug: NS 0.9% IV 1000 ml IV at 1000 ml once; to be given as a bolus over 20 minutes ph Route: IV; Rate: 1000 ml; Site: left wrist; 16:55 Follow up: IV Status: Completed infusion ph 17:28 Drug: Cefepime IVPB 1 grams IVPB at 200 ml/hr once over 30 mins; (mix in NS 100 mL) ph Route: IVPB; Rate: 200 ml/hr; Infused Over: 30 mins; Site: left wrist; 18:00 Follow up: Response: No adverse reaction; IV Status: Completed infusion; IV Intake: ph 100ml 17:29 Drug: NS 0.9% IV 1000 ml IV at 1 bolus Per protocol; to be given as a bolus over 60 ph minutes Route: IV; Rate: 1 bolus; Site: left wrist; 18:37 Follow up: Response: No adverse reaction; IV Status: Completed infusion; IV Intake: ph 1000ml 18:36 Drug: vancoMYCIN IVPB 1 grams IVPB once over 2 hrs Route: IVPB; Infused Over: 2 hrs; ph Site: left wrist; 20:04 Follow up: IV Status: Completed infusion; IV Intake: 250ml rg5 20:00 Drug: NS 0.9% IV 1000 ml IV at 1 bolus Per protocol; to be given as a bolus over 60 rg5 minutes Route: IV; Rate: 1 bolus; Site: left antecubital; 21:00 Follow up: IV Status: Completed infusion; IV Intake: 1000ml rg5 21:09 Drug: Albumin IVPB 50 grams 100 ml IVPB once; (Note: Albumin 25% concentration) Volume: rg5 100 ml; Route: IVPB; Site: left forearm; 22:01 Follow up: IV Status: Completed infusion; IV Intake: 100ml rg5 21:09 Drug: Lactulose PO 20 grams 30 ml PO once Volume: 30 ml; Route: PO; rg5 22:01 Follow up: Response: No adverse reaction rg5 Medication: 18:38 VIS not applicable for this client. ph Intake: 18:00 IV: 100ml; Total: 100ml. ph 18:37 IV: 1000ml; Total: 1100ml. ph 20:04 IV: 250ml; Total: 1350ml. rg5 21:00 IV: 1000ml; Total: 2350ml. rg5 22:01 IV: 100ml; Total: 2450ml. rg5 Outcome: 17:53 ER care complete, transfer ordered by . sp3 22:02 Patient left the ED. rg5 Signatures: Dispatcher [employer] EDKimberley Martínez Patricia, RN RN ph Sunshine Sanchez MD MD sp3 Fahad Bates MD MD ec2 Lavon Andrade RN RN rg5 Corrections: (The following items were deleted from the chart) 21:31 21:25 Reassessment: rg5 rg5
--- NOTE | 2024-09-04 17:54 | EDPHYS ---
Physician Documentation [facility] Name: Dick Branch Age: 74 yrs Sex: Male : 1950 Arrival Date: 09/04/2024 Time: 14:26 Bed 16 Private MD: ED Physician Fahad Bates HPI: 09/04 14:47 This 74 yrs old Male presents to ER via EMS with complaints of Altered Mental Status. sp3 14:47 74-year-old male with history of hypertension, diabetes and liver disease with history sp3 of hepatic encephalopathy now presents with altered mental status by his who is concerned about high ammonia level. No trauma or other injury reported. Review of systems, history and physical limited secondary to altered mental status. reports no complaints from the patient to her regarding fever, headache, chest pain, shortness of breath, abdominal pain or any other concerning findings. He was constipated however had a BM in the ED today.. Historical: - Allergies: 14:31 Zinc; ph 14:31 Spironolactone; ph 14:31 Furosemide; ph 14:31 Bumetanide; ph 14:31 Doxycycline; ph 14:31 Ciprofloxacin; ph 14:31 METRONIDAZOLE; ph 14:31 Omeprazole; ph 14:31 Midodrine; ph 14:31 Metformin HCl; ph 14:31 Propranolol; ph 14:31 Losartan; ph 14:31 pantoprazole; ph 14:31 Rifaximin; ph 14:31 EPLERENONE; ph 14:31 dexlansoprazole; ph 14:31 empagliflozin; ph - PMHx: 14:31 diabetes mellitus; GERD; Hypertension; ph - PSHx: 14:31 R ear; ph - Immunization history:: Adult Immunizations unknown. - Infectious Disease History:: Denies. - Social history:: Smoking status: Patient denies any tobacco usage or history of. ROS: 14:48 Constitutional: Negative for fever, chills, and weight loss, Eyes: Negative for injury, sp3 pain, redness, and discharge, Neck: Negative for injury, pain, and swelling, Cardiovascular: Negative for chest pain, palpitations, and edema, Respiratory: Negative for shortness of breath, cough, wheezing, and pleuritic chest pain, Abdomen/GI: Negative for abdominal pain, nausea, vomiting, diarrhea, and constipation, Back: Negative for injury and pain, MS/Extremity: Negative for injury and deformity, Skin: Negative for injury, rash, and discoloration, Psych: Negative for depression, anxiety, suicide ideation, homicidal ideation, and hallucinations, Allergy/Immunology: Negative for hives, rash, and allergies, Endocrine: Negative for neck swelling, polydipsia, polyuria, polyphagia, and marked weight changes, 14:48 All other systems are negative, Exam: 14:48 Constitutional: This is a well developed, well nourished patient who is awake, alert, sp3 and in no acute distress. Head/Face: Normocephalic, atraumatic. Eyes: Pupils equal round and reactive to light, extra-ocular motions intact. Lids and lashes normal. Conjunctiva and sclera are non-icteric and not injected. Cornea within normal limits. Periorbital areas with no swelling, redness, or edema. ENT: Nares patent. No nasal discharge, no septal abnormalities noted. External auditory canals are clear. Oropharynx with no redness, swelling, or masses, exudates, or evidence of obstruction, uvula midline. Mucous membranes moist. Neck: Trachea midline, no thyromegaly or masses palpated, and no cervical lymphadenopathy. Supple, full range of motion without nuchal rigidity, or vertebral point tenderness. No Meningismus. Chest/axilla: Normal chest wall appearance and motion. Nontender with no deformity. No lesions are appreciated. Cardiovascular: Regular rate and rhythm with a normal S1 and S2. No gallops, murmurs, or rubs. Normal PMI, no JVD. No pulse deficits. Respiratory: Lungs have equal breath sounds bilaterally, clear to auscultation and percussion. No rales, rhonchi or wheezes noted. No increased work of breathing, no retractions or nasal flaring. Abdomen/GI: Soft, non-tender, with normal bowel sounds. No distension or tympany. No guarding or rebound. No evidence of tenderness throughout. Back: No spinal tenderness. No costovertebral tenderness. Full range of motion. Skin: Warm, dry with normal turgor. Normal color with no rashes, no lesions, and no evidence of cellulitis. MS/ Extremity: Pulses equal, no cyanosis. Neurovascular intact. Full, normal range of motion. 14:48 Neuro: Grossly no focal deficits. Patient does vaguely answer yes/no questions. Airway is intact. Cranial nerves grossly intact as well., 17:02 ECG was reviewed by the Attending Physician. EKG demonstrates normal sinus rhythm at 74 sp3 bpm with limited EKG findings secondary to motion artifact however normal QRS, normal axis and nonspecific diffuse ST's ST changes without evidence of acute ischemia with occasional PAC. Vital Signs: 14:29 BP 104 / 54; Pulse 67; Resp 18; Temp 97.5; Pulse Ox 97% on R/A; ph 15:30 BP 113 / 65; Pulse 72; Resp 18; Pulse Ox 99% on R/A; ph 16:00 BP 104 / 77; Pulse 76; Resp 16; Pulse Ox 99% on R/A; ph 16:30 BP 110 / 47; Pulse 76; Resp 18; Pulse Ox 100% on R/A; ph 17:00 BP 109 / 52; Pulse 72; Resp 18; Temp 97.8; Pulse Ox 100% on R/A; ph 17:30 BP 109 / 52; Pulse 69; Resp 18; Pulse Ox 100% on R/A; ph 18:00 BP 105 / 48; Pulse 79; Resp 18; Pulse Ox 100% on R/A; ph 18:08 Weight 61.23 kg; ph 18:30 BP 113 / 61; Pulse 73; Resp 16; Pulse Ox 100% on R/A; ph 19:15 BP 124 / 43; Pulse 77; Resp 17; Pulse Ox 100% on R/A; rg5 20:00 BP 107 / 59; Pulse 76; Resp 17; Pulse Ox 100% on R/A; rg5 21:00 BP 108 / 75; Pulse 93; Resp 18; Pulse Ox 100% ; Pain 0/10; rg5 22:00 BP 103 / 53; Pulse 79; Resp 18; Temp 98(O); Pulse Ox 99% on R/A; Pain 0/10; rg5 21:00 Pain Scale: Adult rg5 22:00 Pain Scale: Adult rg5 MDM: 14:34 Medical Screening Exam initiated sp3 14:48 Data reviewed: vital signs, nurses notes, old medical records, lab test result(s), EKG, sp3 radiologic studies. ED course: 75-year-old male with altered mental status with PMH above. Differential diagnosis includes hepatic encephalopathy, infection including UTI and/or pneumonia, ACS, electrolyte abnormality, other intracranial process. Workup will include CT scan of the head, EKG, chest x-ray, UA, and general labs. Further pharmacological intervention as indicated and final disposition pending workup and patient course.. 17:41 ED course: Patient with 24,000 WBC count with recent hospitalization. Will treat with sp3 cefepime and vancomycin. LFTs elevated along with lactate. Right upper quadrant ultrasound demonstrates no biliary pathology and ascites are present. CT of the abdomen is pending. CT head is negative. Patient blood pressure is normal with no elevation in heart rate. IV fluids will be continued the patient will be transferred due to lack of hepatology coverage. . 18:32 ED course: Discussed with medicine at [facility] who is gracious accept this sp3 patient as long as repeat lactate is trending down. Post resuscitation sepsis reevaluation complete and patient's blood pressure is improved. Mentation is also improved.. 19:26 ED course: Repeat lactate of 5.8 as well as fluid collection concerning for colitis sp3 requiring surgical consultation also communicated to transfer center.. 19:48 ED course: Below [facility] calls back saying that the bottom pounder [employer] is reviewed this sp3 previously excepted patient and is now declining transfer saying patient needs ICU. Transfer center is trying to find ICU bed while concurrently having GI/hepatology coverage. We will continue IV fluids and repeat lactate after several hours.. 20:18 ED course: Patient signed out pending transfer. In brief patient arrives today with ec2 altered mental status, septic shock with lactic acidosis 6.0 subsequently 5.8 after fluid resuscitation, currently receiving third liter of crystalloid. Patient received vancomycin and cefepime for antibiotic coverage. Plan to transfer to ICU capable facility.. 20:22 ED course: Lab values reviewed, shows significant leukocytosis at 24. Significant ec2 dehydration with a sodium of 157, creatinine of 2.02 and GFR of 34 along with hyaline casts evident in the urine. Chest x-ray shows retrocardiac opacity. CT scan of the abdomen and pelvis shows possible severe colitis versus possible appendicitis, possible hemorrhage. Also with ascites noted as well as bilateral pleural effusions. . 20:34 ED course: Discussed case w/ ICU doc at [facility] who agrees to accept the pt for transfer. ec2 21:10 ED course: VBG with slight acidosis at 7.33 and a pCO2 of 38.. ec2 09/04 14:35 Order name: Blood Culture Adult (2) 3 09/04 14:35 Order name: CBC with Diff; Complete Time: 17:16 3 09/04 14:35 Order name: CMP; Complete Time: 16:58 3 09/04 14:35 Order name: Lactate w/ 2H reflex if indic.; Complete Time: 16:27 3 09/04 14:35 Order name: Protime (+inr); Complete Time: 16:13 3 09/04 14:35 Order name: Ptt, Activated; Complete Time: 16:13 3 09/04 14:35 Order name: Urinalysis w/ reflexes; Complete Time: 17:16 3 09/04 14:35 Order name: Troponin High Sensitivity; Complete Time: 16:58 3 09/04 14:35 Order name: SARS RAPID; Complete Time: 16:59 3 09/04 14:35 Order name: Flu; Complete Time: 16:59 3 09/04 14:41 Order name: AMMONIA; Complete Time: 16:13 3 09/04 17:12 Order name: CBC Smear Scan; Complete Time: 17:16 EDMS 09/04 18:26 Order name: Ghost Lactate-NO COLLECT Timer; Complete Time: 18:53 EDMS 09/04 19:03 Order name: Lactate Sepsis 2 HR Follow-up; Complete Time: 19:48 EDMS 09/04 20:31 Order name: ABG: Venous blood gas, not ABG; Complete Time: 21:20 2 09/04 14:35 Order name: Chest Single View XRAY; Complete Time: 16:13 3 09/04 14:35 Order name: CT Head Brain wo Cont; Complete Time: 16:13 3 09/04 16:59 Order name: CT Abd/Pelvis - Without Contrast; Complete Time: 18:54 3 09/04 16:59 Order name: US Abdomen Limited; Complete Time: 18:53 3 09/04 14:35 Order name: Accucheck; Complete Time: 15:22 3 09/04 14:35 Order name: Cardiac monitoring; Complete Time: 15:22 3 09/04 14:35 Order name: EKG - Nurse/Tech; Complete Time: 16:57 3 09/04 14:35 Order name: IV Saline Lock - Large Bore; Complete Time: 16:21 3 09/04 14:35 Order name: Labs collected and sent; Complete Time: 16:21 3 09/04 14:35 Order name: O2 Per Protocol; Complete Time: 15:22 3 09/04 14:35 Order name: O2 Sat Monitoring; Complete Time: 15:22 3 09/04 14:35 Order name: Vital Signs; Complete Time: 15:22 3 09/04 14:35 Order name: Argueta; Complete Time: 16:56 3 09/04 15:35 Order name: Labs - recollect needed: recollect green top; Complete Time: 16:21 09/04 20:31 Order name: Misc. Order: venous blood gas, not abg; Complete Time: 21:12 ec2 Administered Medications: 16:35 Drug: NS 0.9% IV 1000 ml IV at 1000 ml once; to be given as a bolus over 20 minutes ph Route: IV; Rate: 1000 ml; Site: left wrist; 16:55 Follow up: IV Status: Completed infusion ph 17:28 Drug: Cefepime IVPB 1 grams IVPB at 200 ml/hr once over 30 mins; (mix in NS 100 mL) ph Route: IVPB; Rate: 200 ml/hr; Infused Over: 30 mins; Site: left wrist; 18:00 Follow up: Response: No adverse reaction; IV Status: Completed infusion; IV Intake: ph 100ml 17:29 Drug: NS 0.9% IV 1000 ml IV at 1 bolus Per protocol; to be given as a bolus over 60 ph minutes Route: IV; Rate: 1 bolus; Site: left wrist; 18:37 Follow up: Response: No adverse reaction; IV Status: Completed infusion; IV Intake: ph 1000ml 18:36 Drug: vancoMYCIN IVPB 1 grams IVPB once over 2 hrs Route: IVPB; Infused Over: 2 hrs; ph Site: left wrist; 20:04 Follow up: IV Status: Completed infusion; IV Intake: 250ml rg5 20:00 Drug: NS 0.9% IV 1000 ml IV at 1 bolus Per protocol; to be given as a bolus over 60 rg5 minutes Route: IV; Rate: 1 bolus; Site: left antecubital; 21:00 Follow up: IV Status: Completed infusion; IV Intake: 1000ml rg5 21:09 Drug: Albumin IVPB 50 grams 100 ml IVPB once; (Note: Albumin 25% concentration) Volume: rg5 100 ml; Route: IVPB; Site: left forearm; 22:01 Follow up: IV Status: Completed infusion; IV Intake: 100ml rg5 21:09 Drug: Lactulose PO 20 grams 30 ml PO once Volume: 30 ml; Route: PO; rg5 22:01 Follow up: Response: No adverse reaction rg5 Disposition: 18:50 Critical Care:. sp3 Disposition Summary: 09/04/24 17:53 Transfer Ordered Notes: Transfer Location: [facility] sp3 Reason: Higher level of care sp3 Condition: Stable sp3 Problem: an acute exacerbation sp3 Symptoms: have worsened sp3 Accepting Physician: GENOVEVA Pmo Manager (09/04/24 22:02) rg5 Diagnosis - Sepsis, septic shock, pneumonia, lactic acidosis, liver failure, coagulopathy sp3 Forms: - Medication Reconciliation Form sp3 - SBAR form sp3 Critical care time excluding procedures: 18:50 Critical care time: Bedside Care: 15 minutes, Consultation: 10 minutes, Family sp3 Intervention: 10 minutes. Total time: 35 minutes Signatures: Dispatcher [employer] EDKimberley Martíenz Patricia, RN RN Sunshine Sanchez MD MD sp3 Fahad Bates MD MD ec2 Lavon Andrade RN RN rg5 Corrections: (The following items were deleted from the chart) 14:35 14:35 BLOOD CULTURE*+BA.LAB.BRZ ordered. EDMS EDMS 14:35 14:35 CBC+H.LAB.BRZ ordered. EDMS EDMS 14:35 14:35 COMPREHENSIVE METABOLIC PANEL+C.LAB.BRZ ordered. EDMS EDMS 14:35 14:35 LACTATE+C.LAB.BRZ ordered. EDMS EDMS 14:35 14:35 PROTIME (+INR)+COAG.LAB.BRZ ordered. EDMS EDMS 14:35 14:35 PTT, ACTIVATED+COAG.LAB.BRZ ordered. EDMS EDMS 14:35 14:35 Urinalysis+U.LAB.BRZ ordered. EDMS EDMS 14:35 14:35 Troponin High Sensitivity+C.LAB.BRZ ordered. EDMS EDMS 14:35 14:35 SARS-COV-2 Antigen Rapid+I.LAB.BRZ ordered. EDMS EDMS 14:35 14:35 Influenza Screen (A \T\ B)+BA.LAB.BRZ ordered. EDMS EDMS 14:35 14:35 Head Brain Wo Cont+CT.RAD.BRZ ordered. EDMS EDMS 21:19 18:09 LACTATE+C.LAB.BRZ ordered. EDMS EDMS 22:02 17:53 TBD Pmo Manager sp3 rg5
--- NOTE | 2024-09-04 18:09 | RAD REPORT ---
EXAMINATION: US Abdomen Exam Limited CLINICAL HISTORY: [facility] MAIN N Elevated LFTs Bed Name: 16 COMPARISON: None. TECHNIQUE: Limited upper abdominal grayscale and color flow sonographic images. FINDINGS: Gallbladder: Normal. Bile ducts: No intrahepatic or extrahepatic biliary dilatation. Common bile duct measures 3 mm. Liver: Visualized portions of the liver demonstrate nodular contour and coarsened echotexture. Fluid: Mild free ascites. IMPRESSION: No abnormalities of the gallbladder on right upper quadrant ultrasound. Nodular liver contour with mild free ascites, suggesting sequelae of cirrhosis.
--- NOTE | 2024-09-04 18:54 | RAD REPORT ---
EXAMINATION: CT Abdomen Pelvis Wo Contrast CLINICAL INDICATION: Male, 74 years old. AMS, elevated LFTs TECHNIQUE: CT abdomen and pelvis was performed, without IV contrast, as per department protocol. Axia l, sagittal and coronal reconstructions were obtained. One or more of the following dose reduction techniques were used: Automated exposure control, adjustment of the mA and kV according to the patien t size, and iterative reconstruction. Unless otherwise specified, incidental findings do not require dedicated imaging follow-up. COMPARISON: 10/15/2022. FINDINGS: The lack of intravenous contrast limits the sensitivity of this exam for evaluation of solid visceral organs, vascular structures, and retroperitoneum. LOWER CHEST: Bilateral layering pleural effusions. Underlying airspace opacification with volume loss suggesting atelectasis. LIVER: Normal in size. Nodular contour. Diffuse parenchymal hypoattenuation suggesting steatosis. No focal lesion. TIPS shunt in place. BILIARY SYSTEM: No suspicious abnormalities. SPLEEN: Normal size. No focal lesion. PANCREAS: No mass, ductal dilation, or huseyin-pancreatic fluid. ADRENALS: Normal; no mass. KIDNEYS AND URETERS: Normal size and contour. No hydronephrosis. URINARY BLADDER: Decompressed with Argueta catheter in place. GASTROINTESTINAL TRACT: No evidence of bowel obstruction. Mild free ascites. Moderately pronounced in flammatory fat stranding surrounding the ascending colon. Ill-defined elongated collection along the retroperitoneum in the right flank measuring 5.5 x 3.2 x 7.1 cm in greatest transverse, AP, and C C dimensions. Mild foci of hyperdensity within, may reflect an element of hemorrhage. APPENDIX: Appendix not discretely visualized. LYMPH NODES: No lymphadenopathy. MUSCULOSKELETAL: No acute or suspicious osseous abnormality. ADDITIONAL FINDINGS: Left inguinal hernia containing fluid.. IMPRESSION: Inflammatory fat stranding in the right flank surrounding the ascending colon. Ill-defined collection measuring up to 7.1 cm posteriorly, which may reflect organizing retroperitoneal hemorrhage, or an inflammatory collection/phlegmon in the setting of a ruptured appendicitis for severe colitis. Mild free ascites. Moderate bilateral layering pleural effusions. Other findings as above, including sequelae of cirrhosis.. THIS REPORT CONTAINS FINDINGS THAT MAY BE CRITICAL TO PATIENT CARE. The findings were verbally commun icated via telephone to Sunshine Sanchez on 09/04/2024 6:47 PM.
[2024-09-04] MEDS ORDERED: NA CHLORIDE 0.9% 1,000 ML ONE (20:02)
[2024-09-04] MEDS ORDERED: ALBUMIN HUMAN 25% 100 ML IV ONE (21:03)
[2024-09-04] MEDS ORDERED: LACTULOSE 20 GM/30 ML UCUP ONE (21:04)
[2024-09-04 21:13] LABS: Blood O2 Saturation 32.2 % (92-98.5)
[2024-09-04 21:14] LABS: Arterial Blood Carboxyhemoglob 1.9 % (0-1.5); Blood Gas THB 7.4 g/dl (12-18)
[2024-09-04 22:20] VITALS: BP 103/53; TEMP 98; O2SAT 99
--- NOTE | 2024-09-05 14:48 | EKG ---
Test Date: 2024-09-04 Test Time: 16:49:26 Ambulance Assistant: PH MEASUREMENT RESULTS: Intervals: Rate: 74 SD: 96 QRSD: 64 QT: 356 QTc: 395 Beyer: P: SD: 96 QRS: 40 T: -68 INTERPRETIVE STATEMENTS: Sinus rhythm with short SD with premature supraventricular complexes Low voltage QRS ST & T wave abnormality, consider inferior ischemia Abnormal ECG Compared to ECG 08/17/2024 13:25:10 Short SD interval now present Low QRS voltage now present Possible ischemia now present Sinus bradycardia no longer present ST (T wave) deviation still present Electronically Signed On 09-05-24 14:46:07 CDT by Ammon Cabello
== END 2024-09-04 22:02 | disposition short-term general hospital (02) ==
LOC: ER 14:26
DX: J18.9 Pneumonia, unspecified organism (principal); A41.9 Sepsis, unspecified organism; R65.21 Severe sepsis with septic shock; K72.90 Hepatic failure, unspecified without coma; E87.20 Acidosis, unspecified; D68.9 Coagulation defect, unspecified; Z11.52 Encounter for screening for COVID-19
CPT/HCPCS: 87040 ×2; 85025; 81001; 36415; 82140; 85610; 83605 ×2; 85730; 84484; 80053; 87804 ×2; 70450; 74176; 71045; 76705; 82805; 87811; 36600; P9047; J7050; J7030 ×2; J0692; 51702; 93005; 99285